=== PATIENT | female | born 1990 | race Caucasian/White ===

== ENCOUNTER 2020-03-29 16:55 | Emergency (ER) | payer OTHER, SELFPAY ==
[2020-03-29 17:20] VITALS: BP 131/77; PULSE 124; RESP 20; TEMP 36.4; O2SAT 99
[2020-03-29 17:43] LABS: Basophils Percent Auto 0.4 % (0.2-1.2); Eosinophils Absolute Auto 0.1 K/mm3 (0-0.3); Eosinophils Percent Auto 0.8 % (0-4.4); Hematocrit 32.3 % (37.0-47.0); Hemoglobin 10.6 g/dL (12.0-15.0); Immature Granulocyte Absolute 0.04 K/mm3 (0.00-0.031); Immature Granulocyte Percent A 0.4 % (0-0.5); Lymphocytes Absolute Auto 1.83 K/mm3 (0.9-3.2); Lymphocytes Percent Auto 20.5 % (18.3-44.2); Mean Corpuscular HGB Conc 32.8 g/dl (32-36); Mean Corpuscular Hemoglobin 27.7 pg (26-34); Mean Corpuscular Volume 84.3 fl (80-100); Mean Platelet Volume 8.8 fl (7.4-10.4); Monocytes Absolute Auto 0.6 K/mm3 (0.1-0.6); Monocytes Percent Auto 6.6 % (2.6-8.5); Neutrophils Absolute Auto 6.3 K/mm3 (1.3-6.7); Neutrophils Percent Auto 71.3 % (45.5-73.1); Platelet Count Result 439 k/mm3 (150-375); Red Blood Count 3.83 M/mm3 (4.2-5.4); Red Cell Distribution Width 12.9 % (11.5-14.5); White Blood Count 8.9 K/mm3 (4.5-10.0)
[2020-03-29 17:48] LABS: INR 0.9; Prothrombin Time 12.9 Seconds (11.1-14.7)
[2020-03-29 17:49] LABS: Partial Thromboplastin Time 24.8 SECONDS (22.3-36.8)
[2020-03-29 17:57] LABS: Alanine Aminotransferase 11 U/L (4-35); Albumin Level 3.6 g/dL (3.5-5.1); Alkaline Phosphatase 112 U/L (38-126); Anion Gap 9 mmol/L (8-16); Aspartate Amino Transferase 20 U/L (14-36); Bilirubin,Total 0.2 mg/dL (0.2-1.3); Blood Urea Nitrogen 6 mg/dL (7-17); Calcium 8.7 mg/dL (8.4-10.2); Carbon Dioxide 25 mmol/L (22-30); Chloride 103 mmol/L (98-107); Estimated CRCL calculation 132 ml/min; Estimated Glomerular Filt Rate > 60; Glucose 145 mg/dL (65-105); Potassium 3.6 mmol/L (3.4-5.0); Sodium 137 mmol/L (137-145)
[2020-03-29 20:01] VITALS: BP 126/88; PULSE 66; RESP 18; O2SAT 97
[2020-03-29 20:34] VITALS: BP 126/88; PULSE 108
[2020-03-29 20:35] VITALS: BP 136/95; PULSE 108
[2020-03-29 20:36] VITALS: BP 129/79; PULSE 113
--- NOTE | 2020-03-29 21:00 | ED.GIBLEED ---
HPI - GI Bleed General Chief complaint: GI Bleed Stated complaint: GI bleeding Time Seen by Provider: 03/29/20 19:57 Source: patient Mode of arrival: ambulatory Limitations: no limitations History of Present Illness HPI Narrative: 29-year-old female Complains of intermittent hematochezia x2 weeks She has some mild discomfort during bowel movements but does not think she is particularly constipated Blood does not seem to be mixed into the stool only on the tissue when she wipes and has never been a large amount There is no abdominal pain She is 21 weeks she does not think this is vaginal bleeding and has had no issues with the thus far complaint: blood on toilet paper Onset (ago): day(s) Severity: mild Related Data Allergies Allergy/AdvReac Type Severity Reaction Status Date / Time No Known Allergies Allergy Unverified 06/07/13 13:20 Review of Systems Review of Systems: All systems reviewed & are unremarkable except as noted in HPI and below Constitutional: Constitutional: Denies chills, Denies fatigue, Denies fever(s), Denies headache(s) and Denies weakness ENT: Denies headache(s) Cardiovascular: Cardiovascular: Denies leg edema, Denies palpitations and Denies dyspnea Respiratory: Respiratory: Denies cough and Denies dyspnea Gastrointestinal: Gastrointestinal: Reports no additional gastrointestinal complaints Genitourinary: Genitourinary: Denies abnormal vaginal bleeding, Denies hematuria, Denies urinary frequency and Denies dysuria Musculoskeletal: Musculoskeletal: Denies deformity, Denies muscle weakness and Denies numbness Integumentary/Breasts: Skin/Breast: Denies wounds Psychiatric: Psychiatric: Reports no additional psychiatric complaints Endocrine: Endocrine: Denies fatigue and Denies palpitations Hematologic/Lymphatic: Hematologic/Lymphatic: Denies easy bruising Allergic/Immunologic: Allergic/Immunologic: Denies wheezing Exam Const: General: no acute distress, well developed and awake Nutritional Appearance: well nourished Orientation/consciousness: patient oriented x3 (alert) Limitations: no limitations HENMT: Head: normocephalic and atraumatic Ears: external ears normal General nose exam: No nasal discharge present and no epistaxis Face and sinus: face symmetric Eyes: Conjunctivae: conjunctivae normal Sclera: sclerae normal EOM: EOMs intact bilaterally Neck: Neck: normal visual inspection, supple and no JVD Chest: Chest palpation & inspection: deferred Resp: Effort & Inspection: normal respiratory effort, not labored and not tachypneic Auscultation: other (BS =) Cardio: Heart sounds: no gallops GI: Inspection: normal to inspection GI Palp: Yes Soft to palpation and No Tenderness to palpation present (GI) Rectal Exam: No Abnormal stool present, No heme positive stool, No fecal impaction and hemorrhoids (Anterior tenderness) Back/Spine/Pelvis: Thoracic/Lumbar Spine: thoracic and lumbar spine normal to inspection Skin: General skin exam: normal color and no rashes or lesions noted Neuro: General: patient oriented x3 (alert) and moves all extremities Cranial nerves: Yes facial symmetry Speech: normal speech Extrem: General: normal to inspection and full ROM Psych: Affect: normal affect Course Vital Signs Vital signs: Vital Signs Temperature 36.4 C 03/29/20 17:20 Pulse Rate 124 H 03/29/20 17:20 Respiratory Rate 20 03/29/20 17:20 Blood Pressure 131/77 03/29/20 17:20 Pulse Oximetry 99 03/29/20 17:20 Temperature 36.4 C 03/29/20 17:20 Pulse Rate 113 H 03/29/20 20:36 Respiratory Rate 18 03/29/20 20:01 Blood Pressure 129/79 03/29/20 20:36 Pulse Oximetry 97 03/29/20 20:01 MDM - GI Bleed Lab Data Result diagrams: 03/29/20 17:29 03/29/20 17:29 Labs: Lab Results 03/29/20 03/29/20 03/29/20 Range/Units 17:29 17:29 17:29 WBC 8.9 (4.5-10.0) K/mm3 RBC 3.83 L (4.2-5.4) M
[2020-03-29 22:10] VITALS: BP 119/78; PULSE 75; RESP 14; TEMP 36.4; O2SAT 96
== END 2020-03-29 22:12 | disposition home or self-care (01) ==
PROVIDERS: Emergency Provider Emergency Medicine; PCP Obstetrics & Gynecology
DX: K92.1 Melena (principal)
CPT/HCPCS: 36415; 80053; 85025; 85610; 85730; 86850; 86900; 86901; 99283

== ENCOUNTER 2020-04-24 15:55 | Observation (INO) | payer OTHER, SELFPAY ==
--- NOTE | 2020-04-24 15:55 | OBADM ---
This patient, Sabrina Choi, admitted to the OB room OB Post 115 for observation. Patient/family oriented to hospital policies and general routines including ID bracelet, bed and alarms, visiting hours, pain management, procedures, bathroom and other care routines, personal items, smoking policy, room service/diet, and visiting hours. Patient/Family are encouraged to report perceived risks to care and to ask questions if they do not understand what they are told or what they should do.
[2020-04-24 16:14] VITALS: BP 124/78; PULSE 109; BMI 33.5
[2020-04-24 16:16] VITALS: BP 120/76; PULSE 106
--- NOTE | 2020-04-24 16:25 | PC.NURSE ---
Cuba Puentes CNM notified of patient arrival to OB unit with complaint of stomach tightening while at work. Patient states her abdomen is no longer tight and denies any pain. VSS. FHT reactive. Orders received.
[2020-04-24 16:31] VITALS: BP 119/73; PULSE 101
--- NOTE | 2020-04-24 16:38 | PC.NURSE ---
Plan of care discussed with patient. Patient states understanding and agrees with plan of care. Speculum exam performed, cervix visualized and no bleeding noted during speculum exam. SVE performed following speculum exam, cervix closed/thick/firm in a posterior position.
[2020-04-24 16:45] VITALS: BP 127/81; PULSE 111
[2020-04-24 16:51] LABS: Add Urine Microscopic? YES; Amorphous Sediment Urine Few; Appearance Urine Cloudy (Clear); Bacteria Urine Trace /hpf; Bilirubin Urine Negative (Negative); Blood Urine Negative (Negative); Color Urine Yellow (Yellow); Glucose Urine UA Negative (Negative); Ketones Urine Negative (Negative); Leukocyte Esterase Ur Negative LEU/UL (Negative); Mucus Urine Rare /lpf; Nitrate Urine Negative (Negative); Protein Urine Negative (Negative); RBC Urine 0-2 /hpf (0-2); Specific Grav Ur 1.014 (1.001-1.035); Urobilinogen Urine Negative mg/dL (<2.0); WBC Urine 0-3 /hpf
--- NOTE | 2020-04-24 16:59 | PC.NURSE ---
Updated Cuba Puentes CNM on UA results. Discharge order received.
[2020-04-24 17:01] VITALS: BP 115/68; PULSE 101
--- NOTE | 2020-04-24 17:10 | PC.NURSE ---
Discharge instructions reviewed with patient. Patient states understanding and denies questions.
--- NOTE | 2020-05-08 07:52 | P.PNOB_ITS ---
OB - Triage/Final Diagnosis Evaluation Laboratory results: Laboratory Tests 04/24/20 16:39 Urine Color Yellow Urine Appearance Cloudy H Urine pH 8.0 Ur Specific [place] 1.014 Urine Protein Negative Urine Glucose (UA) Negative Urine Ketones Negative Ur Blood (Man) Negative Urine Nitrate Negative Urine Bilirubin Negative Urine Urobilinogen Negative Leukocyte Esterase Rfl Negative Urine RBC 0-2 Urine WBC 0-3 Amorphous Sediment Few H Urine Bacteria Trace Urine Mucus Rare Final Diagnosis (1) False labor: Code(s): O47.9 - False labor, unspecified Status: Acute
== END 2020-04-24 17:16 | disposition home or self-care (01) ==
PROVIDERS: Advanced Practice Midwife; Admitting Provider Obstetrics & Gynecology; PCP Obstetrics & Gynecology; Visit Provider Obstetrics & Gynecology
DX: O47.9 False labor, unspecified (principal); Z3A.00 Weeks of gestation of pregnancy not specified
CPT/HCPCS: 81001; G0378; G0379

== ENCOUNTER 2020-05-15 10:01 | Outpatient (CLI) | payer OTHER, SELFPAY ==
[2020-05-15 11:36] LABS: Hematocrit 29.3 % (37.0-47.0); Hemoglobin 9.4 g/dL (12.0-15.0)
[2020-05-15 11:45] LABS: Glucose 1 Hour PP 50gm Dose 128 mg/dL
[2020-05-15 12:26] LABS: HIV 1/2 Ab P24 Ag Result Negative (Negative)
[2020-05-17 10:38] LABS: Rapid Plasma Reagin Non-Reactive (NonReactive)
== END 2020-05-15 10:02 | disposition home or self-care (01) ==
PROVIDERS: Visit Provider Obstetrics & Gynecology
DX: O36.0130 Maternal care for anti-D [Rh] antibodies, third trimester, not applicable or unspecified (principal); Z3A.00 Weeks of gestation of pregnancy not specified
CPT/HCPCS: 36415; 82947; 85014; 85018; 86592; 86703; G0432

== ENCOUNTER 2020-06-08 11:46 | Observation (INO) | payer OTHER, SELFPAY ==
[2020-06-08 12:00] VITALS: BMI 34.4
[2020-06-08 12:04] VITALS: BP 128/85; PULSE 108
[2020-06-08 12:15] VITALS: BP 112/72; PULSE 94
[2020-06-08 12:21] LABS: Add Urine Microscopic? YES; Appearance Urine Clear (Clear); Bacteria Urine Trace /hpf; Bilirubin Urine Negative (Negative); Blood Urine Negative (Negative); Color Urine Yellow (Yellow); Glucose Urine UA 1+ mg/dL (Negative); Ketones Urine Negative (Negative); Leukocyte Esterase Ur 2+ LEU/UL (NEGATIVE); Mucus Urine Few /lpf; Nitrate Urine Negative (Negative); Protein Urine 1+ mg/dL (Negative); RBC Urine 0-2 /hpf (0-2); Specific Grav Ur 1.024 (1.001-1.035); Squamous Epithelial Cell Urine Many /hpf (Few); Urobilinogen Urine Negative mg/dL (<2.0)
[2020-06-08 12:30] VITALS: BP 111/67; PULSE 98
[2020-06-08 12:45] VITALS: BP 115/73; PULSE 97
[2020-06-08 13:00] VITALS: BP 112/68; PULSE 92
--- NOTE | 2020-06-28 08:22 | P.PNOB_ITS ---
OB - Triage/Final Diagnosis Visit Information Comments/Additional reasons for admission: I have assessed the risk for this patient, Sabrina Choi, and determined that she would benefit from observation care. Evaluation Laboratory results: Laboratory Tests 06/08/20 12:05 Urine Color Yellow Urine Appearance Clear Urine pH 8.0 Ur Specific [place] 1.024 Urine Protein 1+ H Urine Glucose (UA) 1+ H Urine Ketones Negative Ur Blood (Man) Negative Urine Nitrate Negative Urine Bilirubin Negative Urine Urobilinogen Negative Ur Leukocyte Esterase 2+ H Urine RBC 0-2 Urine WBC 10-15 H Ur Squamous Epith Cells Many H Urine Bacteria Trace Urine Mucus Few H Final Diagnosis (1) False labor: Code(s): O47.9 - False labor, unspecified Status: Acute
== END 2020-06-08 13:30 | disposition home or self-care (01) ==
PROVIDERS: Admitting Provider Obstetrics & Gynecology; Visit Provider Obstetrics & Gynecology
DX: O47.03 False labor before 37 completed weeks of gestation, third trimester (principal); Z3A.32 32 weeks gestation of pregnancy
CPT/HCPCS: 81001; 87086; 87088; G0378; G0379

== ENCOUNTER 2020-07-02 23:25 | Observation (INO) | payer OTHER, SELFPAY ==
[2020-07-02 23:35] VITALS: BP 137/74; PULSE 72
[2020-07-02 23:45] VITALS: BP 132/82; PULSE 75
[2020-07-03] VITALS: BP 132/81; PULSE 69; BMI 35.3
[2020-07-03 00:15] VITALS: BP 125/79; PULSE 73
--- NOTE | 2020-07-03 00:15 | PC.NURSE ---
Pt states she had abdominal pressure today. States has noted panties moist since 1600 and was concerned about SROM. ROm plus was done and negative. 1`-2 contractions noted on arrival. Palpate as mild. Pt states she has had swelling to hands and feet. No pitting noted on exam. VS as noted. Pt states she did have elevated blood pressure with previous . Dr. Cary notified of pt admission and assessment. Will discharge to home. NO SVE since pt is 34 6/7 and not having regular contractions. Pt to follow up in office.
--- NOTE | 2020-07-03 00:21 | OBADM ---
This patient, Sabrina Choi, admitted to the OB room OB Post 117 for observation. Patient/family oriented to hospital policies and general routines including ID bracelet, bed and alarms, visiting hours, pain management, procedures, bathroom and other care routines, personal items, smoking policy, room service/diet, and visiting hours. Patient/Family are encouraged to report perceived risks to care and to ask questions if they do not understand what they are told or what they should do.
[2020-07-03 00:30] VITALS: BP 129/79; PULSE 66
--- NOTE | 2020-07-31 09:53 | PM.OBTRLD ---
OB - Triage/Final Diagnosis Visit Information Comments/Additional reasons for admission: I have assessed the risk for this patient, Sabrina Choi, and determined that she would benefit from observation care. Final Diagnosis (1) False labor: Code(s): O47.9 - False labor, unspecified Status: Acute
== END 2020-07-03 00:35 | disposition home or self-care (01) ==
PROVIDERS: Admitting Provider Obstetrics & Gynecology; Visit Provider Obstetrics & Gynecology
DX: O47.03 False labor before 37 completed weeks of gestation, third trimester (principal); Z3A.34 34 weeks gestation of pregnancy
CPT/HCPCS: 84112; G0378; G0379

== ENCOUNTER 2020-07-05 22:03 | Observation (INO) | payer OTHER, SELFPAY ==
[2020-07-05 22:50] VITALS: BMI 35.3
--- NOTE | 2020-07-07 07:34 | P.PNOB_ITS ---
OB - Triage/Final Diagnosis Visit Information Date of evaluation: 07/06/20 Reason for evaluation: threatened labor Comments/Additional reasons for admission: I have assessed the risk for this patient, Sabrinapauly Choi, and determined that she would benefit from ob servation care.
== END 2020-07-05 23:40 | disposition home or self-care (01) ==
PROVIDERS: Admitting Provider Obstetrics & Gynecology; Visit Provider Obstetrics & Gynecology
DX: O47.03 False labor before 37 completed weeks of gestation, third trimester (principal); Z3A.35 35 weeks gestation of pregnancy
CPT/HCPCS: G0378; G0379

== ENCOUNTER 2020-07-24 12:35 | Inpatient (IN) | payer OTHER, SELFPAY ==
[2020-07-24] VITALS (112 sets, daily range): BP systolic 64–160; BP diastolic 23–121; PULSE 60–153; RESP 18; TEMP 36.6–37.1; O2SAT 78–100; BMI 37.2; BMI 37.8
[2020-07-24 10:20] LABS: Basophils Percent Auto 0.5 % (0.2-1.2); Eosinophils Percent Auto 0.4 % (0-4.4); Hematocrit 31.9 % (37.0-47.0); Immature Granulocyte Absolute 0.02 K/mm3 (0.00-0.031); Immature Granulocyte Percent A 0.2 % (0-0.5); Lymphocytes Absolute Auto 1.63 K/mm3 (0.9-3.2); Lymphocytes Percent Auto 20.3 % (18.3-44.2); Mean Corpuscular HGB Conc 31.3 g/dl (32-36); Mean Corpuscular Hemoglobin 24.3 pg (26-34); Mean Corpuscular Volume 77.4 fl (80-100); Monocytes Absolute Auto 0.5 K/mm3 (0.1-0.6); Monocytes Percent Auto 6.4 % (2.6-8.5); Neutrophils Absolute Auto 5.8 K/mm3 (1.3-6.7); Neutrophils Percent Auto 72.2 % (45.5-73.1); Platelet Count Result 362 k/mm3 (150-375); Red Blood Count 4.12 M/mm3 (4.2-5.4); Red Cell Distribution Width 15.5 % (11.5-14.5)
[2020-07-24 10:29] LABS: Add Urine Microscopic? YES; Appearance Urine Cloudy (Clear); Bacteria Urine 1+ /hpf; Bilirubin Urine Negative (Negative); Blood Urine Negative (Negative); Color Urine Yellow (Yellow); Glucose Urine UA Negative (Negative); Ketones Urine Negative (Negative); Leukocyte Esterase Ur 3+ LEU/UL (NEGATIVE); Mucus Urine Few /lpf; Nitrate Urine Negative (Negative); Protein Urine 2+ mg/dL (Negative); Specific Grav Ur 1.024 (1.001-1.035); Squamous Epithelial Cell Urine Many /hpf (Few); Urobilinogen Urine Negative mg/dL (<2.0); WBC Urine 31-50 /hpf (0-3)
[2020-07-24 10:31] LABS: Alanine Aminotransferase 11 U/L (4-35); Albumin Level 3.4 g/dL (3.5-5.1); Alkaline Phosphatase 256 U/L (38-126); Anion Gap 4 mmol/L (8-16); Aspartate Amino Transferase 29 U/L (14-36); Bilirubin,Total 0.2 mg/dL (0.2-1.3); Blood Urea Nitrogen 8 mg/dL (7-17); Calcium 8.1 mg/dL (8.4-10.2); Carbon Dioxide 28 mmol/L (22-30); Chloride 105 mmol/L (98-107); Estimated Glomerular Filt Rate > 60; Glucose 75 mg/dL (65-105); Potassium 4.5 mmol/L (3.4-5.0); Sodium 137 mmol/L (137-145); Uric Acid 4.3 mg/dL (2.5-7.5)
[2020-07-24 10:42] LABS: Creatinine Urine 167.1 mg/dL; Total Protein Urine Random 39 mg/dL; Ur Ttl Prot Creatinine Ratio 0.23 mg/mg (0-0.20)
--- NOTE | 2020-07-24 12:25 | OBADM ---
This patient, Sabrina Choi, admitted to the OB room OB Post 113 for observation. Patient/family oriented to hospital policies and general routines including ID bracelet, bed and alarms, visiting hours, pain management, procedures, bathroom and other care routines, personal items, smoking policy, room service/diet, call light, and visiting hours. Patient/Family are encouraged to report perceived risks to care and to ask questions if they do not understand what they are told or what they should do.
[2020-07-24] MEDS: OXYTOCIN 30 UNITS/NS 500 ML 30 UNITS/500 ML BAG IV CONT (13:42)
[2020-07-24] MEDS: AMPICILLIN 2 GM/NS 100 ML 2 GM/100 ML BAG IVPB (13:43)
[2020-07-24] MEDS: LACTATED RINGERS 1,000 ML 125 ML IV CONT ×3 (13:43→23:00)
--- NOTE | 2020-07-24 14:11 | WPDOBADMIT ---
Obstetrics - Admit Note Admission Note: 29 y/o here for induction d/t GHTN. /2 AROM performed. Clear odorless. record reviewed. No pertinent additions to the history and/or any subsequent changes in the physical findings that are not consistent with the expected course of the were found. Additions to the history and/or subsequent changes in the physical findings follow. None.
[2020-07-24] MEDS: fentaNYL CITRATE INJ (*CRX) 100 MCG/2 ML VIAL IV PUSH (17:26)
[2020-07-24] MEDS: AMPICILLIN 1 GM/NS 50 ML 1 GM/50 ML BAG IVPB ×2 (17:47→21:55)
--- NOTE | 2020-07-24 17:52 | WPDANESEPP ---
Anes - Eval Pre Procedure Procedure: labor epidural Date/Time: 07/24/20 17:52 Surgeon: Luis Daniel Preop Diagnosis: abd pain with contractions Pre Op Diagnosis: GHTN Patient Data Age: 29 Gender: F Height: 5 ft Weight: 86.5 kg Last Vital Signs Temp 98.1 F 07/24/20 17:48 Pulse 83 07/24/20 17:45 BP 151/103 H 07/24/20 17:45 Allergies Allergy/AdvReac Type Severity Reaction Status Date / Time No Known Allergies Allergy Unverified 06/07/13 13:20 Laboratory Tests 07/24/20 07/24/20 07/24/20 10:07 10:07 10:07 WBC 8.0 K/mm3 K/mm3 (4.5-10.0) RBC 4.12 M/mm3 L M/mm3 (4.2-5.4) Hgb 10.0 g/dL L g/dL (12.0-15.0) Hct 31.9 % L % (37.0-47.0) MCV 77.4 fl L fl (80-100) MCH 24.3 pg L pg (26-34) MCHC 31.3 g/dl L g/dl (32-36) RDW 15.5 % H % (11.5-14.5) Plt Count 362 k/mm3 k/mm3 (150-375) MPV 9.0 fl fl (7.4-10.4) Immature Gran % (Auto) 0.2 % % (0-0.5) Neut % (Auto) 72.2 % % (45.5-73.1) Lymph % (Auto) 20.3 % % (18.3-44.2) [place] % (Auto) 6.4 % % (2.6-8.5) Eos % (Auto) 0.4 % % (0-4.4) Baso % (Auto) 0.5 % % (0.2-1.2) Lymph # (Auto) 1.63 K/mm3 K/mm3 (0.9-3.2) [place] # (Auto) 0.5 K/mm3 K/mm3 (0.1-0.6) Eos # (Auto) 0.0 K/mm3 K/mm3 (0-0.3) Baso # (Auto) 0.0 K/mm3 K/mm3 (0.0-0.1) Abs Immat Gran (auto) 0.02 K/mm3 K/mm3 (0.00-0.031) Absolute Neuts (auto) 5.8 K/mm3 K/mm3 (1.3-6.7) Absolute Nucleated RBC 0.0 K/mm3 K/mm3 (0.0-0.012) Nucleated RBC % 0.0 % % (0.0-0.2) Sodium Potassium Chloride Carbon Dioxide Anion Gap BUN Creatinine Estim Creat Clear Calc Estimated GFR Glucose Uric Acid Calcium Total Bilirubin AST ALT Alkaline Phosphatase Total Protein Albumin Urine Color Yellow (Yellow) Urine Appearance Cloudy H (Clear) Urine pH 6.0 (5.0-9.0) Ur Specific [place] 1.024 (1.001-1.035) Urine Protein 2+ mg/dL H mg/dL (Negative) Urine Glucose (UA) Negative mg/dL mg/dL (Negative) Urine Ketones Negative mg/dL mg/dL (Negative) Ur Blood (Man) Negative (Negative) Urine Nitrate Negative (Negative) Urine Bilirubin Negative (Negative) Urine Urobilinogen Negative mg/dL mg/dL (<2.0) Ur Leukocyte Esterase 3+ ISAURA/UL H ISAURA/UL (NEGATIVE) Urine RBC 3-5 /hpf H /hpf (0-2) Urine WBC 31-50 /hpf H /hpf (0-3) Ur Squamous Epith Cells Many /hpf H /hpf (Few) Urine Bacteria 1+ /hpf H /hpf Urine Mucus Few /lpf H /lpf U Random Total Protein 39 mg/dL mg/dL Urine Creatinine 167.1 mg/dL mg/dL Protein/Creat Ratio 2 0.23 mg/mg H mg/mg (0-0.20) RPR Blood Type Antibody Screen 07/24/20 07/24/20 07/24/20 10:07 13:44 13:44 WBC RBC Hgb Hct MCV MCH MCHC RDW Plt Count MPV Immature Gran % (Auto) Neut % (Auto) Lymph % (Auto) [place] % (Auto) Eos % (Auto) Baso % (Auto) Lymph # (Auto) [place] # (Auto) Eos # (Auto) Baso # (Auto) Abs Immat Gran (auto) Absolute Neuts (auto) Absolute Nucleated RBC Nucleated RBC % Sodium 137 mmol/L mmol/L (137-145) Potassium 4.5 mmol/L mmol/L (3.4-5.0) Chloride 105 mmol/L mmol
--- NOTE | 2020-07-24 22:33 | PM.OBPRVD ---
OB - Delivery Note Procedure Delivery date: 07/24/20 events: Induced HTN Intrapartal events: None Induction method: per pitocin protocol Delivery monitor: external FHT and external uterine Route of delivery: Episiotomy description: None Laceration Description: Perineal - 2nd Degree Delivery repair: vicryl Specimen: Yes Quantitative Blood Loss (ml): 216 Anesthesia type: Epidural Narrative: Delivery per Z. Due SNM. Mother and baby in stable condition. Cord gasses collected and handed off to staff. Baby Date of : 07/24/20 Time of : 22:06 Weeks of gestation at delivery: 37 Infant gender: Male Weight (pounds): 6 Weight (ounces): 7 presentation: vertex position: Left Occiput Anterior Placenta delivery description: Spontaneous cord vessel description: Delayed Cord Clamping score one minute: 8 score five minutes: 9
[2020-07-24] MEDS: OXYTOCIN 30 UNITS/NS 500 ML 30 UNITS/500 ML BAG 125 UNITS IV CONT (23:00)
[2020-07-25] VITALS (10 sets, daily range): BP systolic 125–157; BP diastolic 75–98; PULSE 75–101; RESP 12–20; TEMP 36.4–37; O2SAT 20–100
[2020-07-25] MEDS: WITCH HAZEL 40 PADS 1 PAD TOPICAL (00:21)
[2020-07-25] MEDS: BENZOCAINE 20% AER SPR (*SP) 56 GM CAN 1 SPRAY TOPICAL (00:21)
--- NOTE | 2020-07-25 00:36 | OBPPTRN ---
Patient transferred to post room #277 via wheelchair with baby in bassinet. Support person present. Oriented to unit, room, information board, rooming in, admission packet and security measures. Patient verbalizes understanding.
[2020-07-25 01:04] LABS: HIV 1/2 Ab P24 Ag Result Negative (Negative)
[2020-07-25] MEDS: IBUPROFEN 600 MG TABLET PO ×3 (02:00→16:05)
[2020-07-25 05:05] LABS: Hematocrit 25.5 % (37.0-47.0); Hemoglobin 8.1 g/dL (12.0-15.0)
--- NOTE | 2020-07-25 07:18 | WPDANLDPN2 ---
Anes-Prog Note L&D Date/Time: 07/25/20 07:18 Comfortable throughout: labor and delivery Neuraxial method: epidural Epidural/Spinal procedure site: clean & non-tender Neuro status: Neuro function grossly intact. Cardiovascular status: normal Respiratory status: normal Airway patency: baseline Mental status: baseline Post-Op hydration status: normal Vital Signs: Last Vital Signs Temp 36.4 C 07/25/20 04:15 Pulse 101 H 07/25/20 04:15 Resp 18 07/25/20 04:15 BP 125/75 07/25/20 04:15 Pulse Ox 97 07/25/20 04:15 Pain score (VAS): 04/30 I/O: Intake & Output 07/24/20 07/24/20 07/25/20 15:59 23:59 07:59 Intake Total 2049 Output Total 113 Balance 2049 - Post-procedural complaints: none Patient feedback: Patient satisfied with anesthetic care.
[2020-07-25] MEDS: POLYSACCHARIDE IRON COMPLEX 150 MG CAPSULE PO ×2 (07:29→16:05)
[2020-07-25] MEDS: MULTIVIT/MIN/PREN/FOL AC/IRON TABLET 1 TAB PO (07:29)
--- NOTE | 2020-07-25 07:51 | PM.OBPNVD ---
OB - PN: Subj Subjective Date/time seen: 07/25/20 07:51 Patient comments: no complaints baby status: doing well OB - PN: Obj Data Labs CBC & Chem 7: 07/25/20 04:13 07/24/20 10:07 Labs: Laboratory Results - last 24 hr 07/24/20 07/24/20 07/24/20 10:07 10:07 10:07 WBC 8.0 RBC 4.12 L Hgb 10.0 L Hct 31.9 L MCV 77.4 L MCH 24.3 L MCHC 31.3 L RDW 15.5 H Plt Count 362 MPV 9.0 Immature Gran % (Auto) 0.2 Neut % (Auto) 72.2 Lymph % (Auto) 20.3 [place] % (Auto) 6.4 Eos % (Auto) 0.4 Baso % (Auto) 0.5 Lymph # (Auto) 1.63 [place] # (Auto) 0.5 Eos # (Auto) 0.0 Baso # (Auto) 0.0 Abs Immat Gran (auto) 0.02 Absolute Neuts (auto) 5.8 Absolute Nucleated RBC 0.0 Nucleated RBC % 0.0 Sodium Potassium Chloride Carbon Dioxide Anion Gap BUN Creatinine Estim Creat Clear Calc Estimated GFR Glucose Uric Acid Calcium Total Bilirubin AST ALT Alkaline Phosphatase Total Protein Albumin Urine Color Yellow Urine Appearance Cloudy H Urine pH 6.0 Ur Specific [place] 1.024 Urine Protein 2+ H Urine Glucose (UA) Negative Urine Ketones Negative Ur Blood (Man) Negative Urine Nitrate Negative Urine Bilirubin Negative Urine Urobilinogen Negative Ur Leukocyte Esterase 3+ H Urine RBC 3-5 H Urine WBC 31-50 H Ur Squamous Epith Cells Many H Urine Bacteria 1+ H Urine Mucus Few H U Random Total Protein 39 Urine Creatinine 167.1 Protein/Creat Ratio 2 0.23 H HIV 1&2 Ab/P24 Ag 4thGn Blood Type Antibody Screen 07/24/20 07/24/20 07/24/20 10:07 13:44 23:48 WBC RBC Hgb Hct MCV MCH MCHC RDW Plt Count MPV Immature Gran % (Auto) Neut % (Auto) Lymph % (Auto) [place] % (Auto) Eos % (Auto) Baso % (Auto) Lymph # (Auto) [place] # (Auto) Eos # (Auto) Baso # (Auto) Abs Immat Gran (auto) Absolute Neuts (auto) Absolute Nucleated RBC Nucleated RBC % Sodium 137 Potassium 4.5 Chloride 105 Carbon Dioxide 28 Anion Gap 4 L BUN 8 Creatinine 0.70 Estim Creat Clear Calc Not Reportable Estimated GFR > 60 Glucose 75 Uric Acid 4.3 Calcium 8.1 L Total Bilirubin 0.2 AST 29 ALT 11 Alkaline Phosphatase 256 H Total Protein 7.0 Albumin 3.4 L Urine Color Urine Appearance Urine pH Ur Specific [place] Urine Protein Urine Glucose (UA) Urine Ketones Ur Blood (Man) Urine Nitrate Urine Bilirubin Urine Urobilinogen Ur Leukocyte Esterase Urine RBC Urine WBC Ur Squamous Epith Cells Urine Bacteria Urine Mucus U Random Total Protein Urine Creatinine Protein/Creat Ratio 2 HIV 1&2 Ab/P24 Ag 4thGn Negative Blood Type O Positive Antibody Screen Negative 07/25/20 04:13 WBC RBC Hgb 8.1 L Hct 25.5 L MCV MCH MCHC RDW Plt Count MPV Immature Gran % (Auto) Neut % (Auto) Lymph % (Auto) [place] % (Auto) Eos % (Auto) Baso % (Auto) Lymph # (Auto) [place] # (Auto) Eos # (Auto) Baso # (Auto) Abs Immat Gran (auto) Absolute Neuts (auto) Absolute Nucleated RBC Nucleated RBC % Sodium Potassium Chloride Carbon Dioxide Anion Gap BUN Creatinine Estim Creat Clear Calc Estimated GFR Glucose Uric Acid Calcium Total Bilirubin AST ALT Alkaline Phosphatase Total Protein Albumin Urine Color Urine Appearance Urine pH Ur Specific [place] Urine Protein Urine Glucose (UA) Urine Ketones Ur Blood (Man) Urine Nitrate Urine Bilirubin Urine Urobilinogen Ur Leukocyte Esterase Urine RBC Urine WBC Ur Squamous Epith Cells Urine Bacteria Urine Mucus U Random Total Protein Urine Creatinine Protein/Creat Ratio 2 HIV 1&2 Ab/P24 Ag 4thGn Blood Type Antibody Screen OB - PN A
--- NOTE | 2020-07-25 08:55 | PC.NURSE ---
Mother called out for assist with feeding. Consulted with patient, mother reports has had latch issues since . Mother was given the latch assist and nipple shield for feedings. Mother has nipple discomfort with latch during first part of the feeding that quickly resolves. Reviewed nipple care of lanolin, warm compresses several times per day as needed. Reviewed instructions on application and cleaning of shield. Discussed nipple shield precautions and possible complications. Patient able to return demonstration on proper application of shield. Discussed the need to initiate pumping if infant continues to nurse with the shield. Patient verbalizes understanding. Reviewed infant feeding cues, frequencies, duration of feedings, feeding elimination flow sheet, and signs of adequate intake. Demonstrated stimulation techniques to wake for feeding. Assisted with infant to breast. Reviewed positioning/alignment in football, holding breast in C hold and guided asymmetrical latch on using nipple shield. was sleepy and made weak attempts to latch and nurse with short chewy suckling for short bursts. Approximately 2 minutes of suckling in 15 minute attempt. Mother is concerned with infant feeding status and wishes to be supplemented. Infant sleepy and having difficulties with suck swallow, 2 mls in 10 minutes. Report to primary RN.
--- NOTE | 2020-07-25 09:30 | PC.NURSE ---
Assisted mother with her home double electric pump. Instructions given on breast pump care and usage, pumping schedule, nipple care, and collection and storage of breast milk. Encouraged [id number], breast massage and manual expression to stimulate supply. Assessed patient for correct flange size, placement and draw. Patient verbalizes and demonstrates understanding of instructions.
--- NOTE | 2020-07-25 12:45 | PC.NURSE ---
Mother called out for assist with feeding. Mother is concerned with feeding status and wishes infant to be supplemented. was sleepy and made weak attempts to latch and nurse with short chewy suckling for short bursts. Approximately 2 minutes of suckling in 15 minute attempt. Infant sleepy and having difficulties with suck swallow, 2 mls in 10 minutes. Report to primary RN.
[2020-07-25 13:55] LABS: Rapid Plasma Reagin Non-Reactive (NonReactive)
[2020-07-25] MEDS: DOCUSATE SODIUM 100 MG CAPSULE PO (16:05)
[2020-07-26 03:10] VITALS: BP 151/96; PULSE 90; RESP 18; TEMP 36.8; O2SAT 100
[2020-07-26] MEDS: IBUPROFEN 600 MG TABLET PO ×2 (03:50→09:06)
[2020-07-26 07:15] VITALS: BP 140/90; PULSE 74; RESP 18; TEMP 36.6; O2SAT 100
--- NOTE | 2020-07-26 08:02 | PM.OBPNVD ---
OB - PN: Subj Subjective Date/time seen: 07/26/20 08:02 Patient comments: no complaints baby status: doing well OB - PN: Obj Data Labs CBC & Chem 7: 07/25/20 04:13 07/24/20 10:07 Labs: Laboratory Results - last 24 hr 07/24/20 13:44 RPR Non-reactive OB - PN A/P Plan day: 2 Plan: routine care and discharge home Time Spent With Patient Time: Total time spent is greater than 50% in coordination of care (as documented) at patient's floor/unit and/or counseling patient: Review of Systems Review of Systems: All systems reviewed & are unremarkable except as noted in HPI and below Exam Const: General: cooperative Orientation/consciousness: patient oriented x3 Psych: Affect: normal affect Thought process: Normal thought process present Thought content: Yes Normal thought content present Insight: Good insight present (Psych) Judgement: Good judgement present (Psych)
[2020-07-26] MEDS: MULTIVIT/MIN/PREN/FOL AC/IRON TABLET 1 TAB PO (09:05)
[2020-07-26] MEDS: DOCUSATE SODIUM 100 MG CAPSULE PO (09:06)
[2020-07-26] MEDS: POLYSACCHARIDE IRON COMPLEX 150 MG CAPSULE PO (09:06)
--- NOTE | 2020-07-26 10:00 | PC.NURSE ---
Consult with pt., mother states infant was more awake and eagerly nippling during the evening, then began nursing during the night. Mother is pleased is now rooting and able to maintain latch. Mother will use the shield at times, and reports infant will latch without at times. Reviewed pumping after each feeding with shield and to supplement 15 mls until her milk is well established. Mother continues to pump without difficulties or discomfort with her double electric pump. FOB will supplement after feedings while mother pumps. Reviewed nipple shield weaning techniques, discussing to use shield if infant is unable to latch or latch without discomfort. Mother reports tenderness at times with shield. Infant is ready to feed at this time. Reviewed instructions on application and cleaning of shield. Discussed nipple shield precautions and possible complications. Reviewed positioning/alignment in cross cradle, holding breast in U hold and guided asymmetrical latch on. latched shallow to shield. suggested mother break latch and reattempt. was able to latch correctly within a few attempts. Infant nursed eagerly, with steady draws and occasional swallowing noted, then began to have long pausing. Reviewed signs of a correct latch, effective nursing and suck swallow ratio. Demonstrated how to adjust latch more deeply while feeding. Mother quickly reports she can feel infant is latched more deeply and has minimal tenderness. Suggested to stimulate while feeding to keep infant awake and nursing effectively for increased stimulation and increased intake. Instructed mother to call out for RN assistance if she is unable to latch infant for feeding or she has discomfort with nursing. Discussed transitioning to milk and when to increase or decrease supplementation. Reviewed feeding plan to supplement after each feeding and to continue to pump until milk supply is well established and is gaining weight without supplementation. Mother is able to independently latch infant with appropriate positioning/alignment. She reports slight nipple discomfort, is feeding as required and waking to feed if needed. Working with latch assisted with nipple tenderness. is currently meeting outcomes for weight, output, jaundice and feeding frequencies. Mother states she feels confident to continue effective at home. Reviewed transition to breast milk, signs of adequate intake, and engorgement/relief. Instructed to call ICP if intake/output less than required. Reviewed regular medications mother is taking. Information provided per Felicita. Reviewed community resources on the [employer] website and in the Mom/Baby guide. Information on outpatient services provided. Mother has no further questions at this time.
[2020-07-26 11:45] VITALS: BP 140/93; PULSE 78; RESP 12; TEMP 36.9; O2SAT 100
[2020-07-28 11:39] VITALS: BP 129/82; PULSE 102; RESP 16; TEMP 36.9; O2SAT 99
--- NOTE | 2020-08-02 07:22 | PM.OBDSVD ---
DS: Admitting Diagnosis Admitting Diagnosis Admitting Diagnosis: [facility] OB - DS: Summary OB Procedures : None OB Procedures Intrapartum: Spontaneous Vag Delivery OB Procedures: : None Time Spent with Patient Time attestation: Total time spent providing and/or coordinating discharge services: DS: Data Data Completed and Pending Completed studies during hospitalization: Pending at discharge 07/24/20 22:27 Surgical [PTH] Routine Discharge Plan Discharge Attending physician on discharge: Maria Teresa Cary Consulting providers: Daisy Puentes ; Kari Jefferson Discharging Clinician: Kari Jefferson Patient Disposition: Home, Self-Care Activity: pelvic rest Diet: regular Discharge Instructions: Education: Mom and Baby Guide Given to: Mother Follow-Up: Call your delivering provider's office for an appointment to be seen in: 4 Weeks Mom and baby should come to the [facility] for the follow-up appointment. Appointment Date/Time: July 28, 2020 at 11:00 am What to expect at your follow-up visit: Physical Assessment Call [phone] if you are unable to keep your appointment time. BREAST CARE: * Wear a snug supportive bra. * For engorgement discomfort: Breast Feeding: * Apply warm moist washcloths * Express milk as needed to relieve engorgement * Wear loose clothing * For sore nipples: * Identify correct latch-on * Apply warm moist washcloths before and after nursing * Air dry nipples after nursing * May apply Lansinoh cream to nipples EPISIOTOMY/PERINEAL CARE: * Until bleeding stops, use your gracie bottle after urinating * Change your pad frequently throughout the day * You may take sitz baths several times a day (fill your bathtub with warm water and soak for 20 minutes.) Do NOT bathe in the water * No tub baths until seen by your physician - You may shower ACTIVITY: * Rest as much as possible. * Do not exercise or lift anything heavier than your baby (such as laundry or other children.) * Avoid stairs or driving as much as possible. * Do not put anything into the vagina. No douching, tampons, or sexual activity until seen by physician. NOTIFY PHYSICIAN IF YOU HAVE ANY QUESTIONS OR IF ANY OF THE FOLLOWING SYMPTOMS OCCUR: * If your episiotomy or incision becomes red, swollen, or more painful than what you have experienced in the hospital. * If your vaginal bleeding becomes foul smelling. * If your vaginal bleeding becomes more heavy than a period or if your bleeding changes from pink to bright red. However, you may pass an occasional walnut-sized clot once or twice for the first week . * If you experience a sharp, shooting pain in you calves. * If you discover a hard, reddened area on your breast or if you experience flu-like symptoms. DIET: * Eat regular, well-balanced meals. * Drink plenty of fluids daily. If , drink to thirst. Patient Instructions: Antibiotic Form Stand Alone Forms: General Discharge Information Follow-up/Referrals: Daisy Puentes CNM [Certified Nurse Records Administrator] - 4 Weeks Discharge Medications: Continued valacyclovir 500 mg tablet 500 mg PO HS RF: 0 Date of admission: 07/24/20 12:35 Primary Care Provider: PHYSICIAN,YARN TESTER Admitting Provider: Maria Teresa Cary Attending physician on admission: Maria Teresa Cary Condition: Stable
== END 2020-07-26 14:13 | disposition home or self-care (01) | DRG 807 ==
LOC: ANHOBOP 12:39 → ANHOBPP 12:39 → ANHLDR 12:55 → ANHOB2 07-25 01:16
PROVIDERS: Advanced Practice Midwife; Admitting Provider Obstetrics & Gynecology; Visit Provider Obstetrics & Gynecology
DX: O13.4 Gestational [pregnancy-induced] hypertension without significant proteinuria, complicating childbirth (principal); Z37.0 Single live birth; Z3A.37 37 weeks gestation of pregnancy; O99.824 Streptococcus B carrier state complicating childbirth; O70.1 Second degree perineal laceration during delivery; O99.214 Obesity complicating childbirth; E66.9 Obesity, unspecified
CPT/HCPCS: 36415; 59025; 80053; 81001; 82570; 84156; 84550; 85014; 85018; 85025; 86592; 86703; 86850; 86900; 86901; 87086; 87088; 88307; A9270; G0432; J0290; J2590; J2795; J3010; J7120

== ENCOUNTER → 2020-09-19 02:42 | Outpatient (CLI) | payer OTHER, SELFPAY ==
[2020-09-19 18:14] LABS: SARS-CoV-2 RNA PCR Negative
== END ==
PROVIDERS: Visit Provider Obstetrics & Gynecology
DX: Z01.812 Encounter for preprocedural laboratory examination (principal); Z20.822 Contact with and (suspected) exposure to COVID-19
CPT/HCPCS: C9803; U0003; U0005

== ENCOUNTER 2020-09-22 00:19 | Day surgery (SDC) | payer OTHER, SELFPAY ==
[2020-09-11 10:25] VITALS: BMI 33.0
[2020-09-22] VITALS (8 sets, daily range): BP systolic 98–136; BP diastolic 62–88; PULSE 72–105; RESP 12–20; TEMP 36.1–36.3; O2SAT 99–100
--- NOTE | 2020-09-22 09:59 | P.PNAN_ITS ---
Anes - Initial Pre Proc Eval Procedure: Operation Date: 09/22/20 11:30 Proposed Procedures p Laparoscopic Bilateral Tubal Sterilization with Fulgeration - Maria Teresa Cary MD Date/Time: 09/22/20 09:59 Surgeon: Maria Teresa Cary MD Pre Op Diagnosis: desires sterilization Patient Data Age: 30 Gender: F Height: 5 ft Weight: 75.82 kg Last Vital Signs Temp 36.3 C L 09/22/20 09:31 Pulse 105 H 09/22/20 09:31 Resp 20 09/22/20 09:31 BP 136/88 09/22/20 09:31 Pulse Ox 100 09/22/20 09:31 Allergies Allergy/AdvReac Type Severity Reaction Status Date / Time No Known Allergies Allergy Unverified 09/11/20 10:24 Home Medications Medication Instructions Recorded Confirmed Type valacyclovir 500 mg PO HS 07/25/20 09/11/20 History sertraline 50 mg PO DAILY 09/11/20 09/11/20 History Patient hx anesthesia problems: none Family hx anesthesia problems: none [facility] Past Medical History Medical History Anxiety Herpes Obesity Shingles Social History Social History Smoking status: Never smoker Alcohol intake: current Alcohol use details: 3/MONTH Substance use: never Substance use type: does not use Living arrangements: with family Gender identity (if verbalized by the patient): Female Spiritual care concerns: No Anes - Eval Final PreProcedure Day of Procedure 09/22/20 09:59 Patient weight: obese Heart: regular rate and rhythm Lungs: clear to auscultation Airway: Mallampati scale class 1 Neurological: alert and oriented Last oral intake: >/= 8 hours ASA classification: II Emergent: no Anesthetic plan: proceed Anesthesia type and monitoring: general ETT and standard monitoring Informed Consent: The patient's anesthetic plan and its attendant risks and benefits were discussed with the patient/family/POA. Questions were solicited and answers provided to the satisfaction of the patient/family/POA.
[2020-09-22] MEDS: ACETAMINOPHEN 500 MG TABLET 1000 MG PO (10:12)
[2020-09-22] MEDS: LACTATED RINGERS 1,000 ML 30 ML IV CONT (10:15)
[2020-09-22] MEDS: KETOROLAC 15 MG/ML VIAL (*BKC) IV PUSH (10:17)
--- NOTE | 2020-09-22 10:38 | WPDHPUPDATE1 ---
History and Physical Update Update Date/Time: 09/22/20 10:38 History and Physical has been reviewed, including an updated exam of the patient. There are NO changes in the patient's condition. Risks, benefits, and alternatives have been discussed and questions answered. Patient agrees to proceed with procedure.
--- NOTE | 2020-09-22 11:21 | PM.PROC ---
Procedure Note - Detailed Date of procedure: 09/22/20 Pre-op diagnosis: desires sterilization Post-op diagnosis: same Procedure performed: Laparoscopic bilateral tubal ligation Description of procedure: Patient was taken the operating room. She has prepped draped in the dorsal lithotomy position after induction of general anesthesia. A 5 mm abdominal incision was made in left upper quadrant of the abdomen with scalpel. A 5 mm trocars inserted the intra-abdominal cavity under direct visualization of the scope. Pneumoperitoneum was achieved. A 5 mm periumbilical incision was made using a scalpel on the abdominal scan. A 5 mm trocar was inserted the intra-abdominal cavity under visualization of the scope. The fallopian tube was grasped with the bipolar cautery in the ampullary region. It was completely desiccated in a 1.5 cm area of the fallopian tube. This was performed in identical fashion on the contralateral side. The instruments were withdrawn. The pneumoperitoneum was reduced. The trocars were removed. The skin was closed with subcuticular 4 Monocryl. This incisions were covered with Dermabond. The patient tolerated the procedure well. She was taken to recover room in stable condition. Anesthesia: GETA Surgeon: Maria Teresa Cary MD Estimated blood loss (mL): 10 Drains: No Packing: No Pathology: none sent Complications: No immediate complications Condition: stable Disposition: PACU Findings: Normal female pelvic anatomy.
--- NOTE | 2020-09-22 12:08 | SUR.PHASEI ---
1205- awake, family member updated.
[2020-09-22] MEDS: oxyCODONE HCL (*CRX) 5 MG TAB IR PO (12:38)
== END 2020-09-22 13:14 | disposition home or self-care (01) ==
PROVIDERS: Visit Provider Obstetrics & Gynecology
PROC: (CPT 58671; principal; 2020-09-22 11:30)
DX: Z30.2 Encounter for sterilization (principal); F41.9 Anxiety disorder, unspecified; E66.8 Other obesity; Z68.32 Body mass index [BMI] 32.0-32.9, adult
CPT/HCPCS: 58670; A9270; C9803; J1885; J2250; J3010; J7120; U0003; U0005

== ENCOUNTER 2023-06-27 14:39 | Emergency (ER) | payer OTHER, SELFPAY ==
--- NOTE | ~2023-06-27 | CT_ITS ---
EXAMINATION: CT abdomen pelvis wo con DATE: 06/27/2023 15:23 INDICATION: Left flank tenderness. Low abdominal pain. TECHNIQUE: Computed tomography (CT) of the abdomen and pelvis was performed without intravenous contr ast. Automated exposure control and iterative reconstruction technique were employed. The dose-length product was 1027.87 mGy-cm. COMPARISON: None. FINDINGS: The visualized portions of the lung bases are clear without pneumonia or pleural effusion. The heart size is normal. No pericardial effusion. The liver, gallbladder, spleen, pancreas, adrenal glands, and kidneys are normal. There is no urolithiasis. There are no dilated loops of bowel. The ap pendix is normal. There are no pathologically enlarged lymph nodes. There is no free intraperitoneal fluid. There is mild lumbar spondylosis. IMPRESSION: 1. No urolithiasis. Reviewed, dictated and finalized at location [facility]. [employer] IMPRESSION: 1. No urolithiasis.
[2023-06-27 14:47] VITALS: BP 140/88; PULSE 108; RESP 18; TEMP 36.4; O2SAT 100
--- NOTE | 2023-06-27 14:49 | ED.FEMALEGU ---
HPI - Female Genitourinary General Chief complaint: Urogenital-Female Stated complaint: pain while urinating Time Seen by Provider: 06/27/23 14:50 Focused HPI: This is a 32-year-old female who presents to the ED with chief complaint of dysuria and lower abdominal pain beginning around 10:00 a.m. this morning. Reports burning with urination and urgency. Reports constant suprapubic abdominal pain. She reports she had some mild left flank pain as well. Denies fevers, chills, nausea, vomiting, diarrhea or problems with bowel movements. Last menstrual period was 7 days ago. GENERAL: Well-appearing, well-nourished, and in no acute distress. HEAD: Normocephalic, atraumatic. CHEST: Clear to auscultation. No respiratory distress. HEART: Regular rate and rhythm. ABD: Mild left flank tenderness. Mild suprapubic tenderness. Abdomen soft and nondistended. NEURO: Alert and oriented x3. Patient screened in triage and initial orders placed. Additional care and disposition to be based upon diagnostic testing and treatment. Source: patient Mode of arrival: ambulatory Limitations: no limitations Related Data Home Medications Medication Instructions Recorded Confirmed sertraline 50 mg tablet 50 mg PO DAILY 09/11/20 12/04/20 Allergies Allergy/AdvReac Type Severity Reaction Status Date / Time No Known Allergies Allergy Unverified 12/04/20 15:44 Review of Systems Review of Systems: All systems as dictated in [facility] Past Medical History Medical History (Updated 06/27/23 @ 15:37 by Margarito Basilio PA-C) Anxiety Herpes Obesity Shingles Surgical History Surgical History (Updated 12/04/20 @ 17:05 by Sascha Dover MD) History of tubal ligation Family History Family History (Updated 12/04/20 @ 17:06 by Sascha Dover MD) Father Diabetes mellitus Mother Breast cancer Social History Social History Smoking status: Never smoker Alcohol intake: current Alcohol use details: 3/MONTH Substance use: never Substance use type: does not use Living arrangements: with family Gender identity (if verbalized by the patient): Female Sexual Orientation (if Verbalized by the Patient): Straight or Heterosexual Spiritual care concerns: No Exam Narrative: GENERAL: Well-appearing, well-nourished, and in no acute distress. HEAD: Normocephalic, atraumatic. EYES: PERRLA and EOMI. ENT: Nares clear, no rhinorrhea or epistaxis. Mucous membranes moist. Oropharynx without tonsillar hypertrophy exudate or other lesions. NECK: Supple. No adenopathy or masses. CHEST: No respiratory distress. Clear to auscultation. No wheezes rales or rhonchi HEART: Regular rate and rhythm. No murmur heard. Normal peripheral pulses. ABDOMEN: mild suprapubic and left flank tenderness present. Soft, otherwise nontender, nondistended, normal active bowel sounds. MSK: Normal range of motion. No edema. SKIN: Warm, dry, no rash. NEURO: Alert and oriented x3. No focal deficits. PSYCH: Normal mood and affect. Course Vital Signs Vital signs: Vital Signs Temperature 97.6 F 06/27/23 14:47 Pulse Rate 108 H 06/27/23 14:47 Respiratory Rate 18 06/27/23 14:47 Blood Pressure 140/88 06/27/23 14:47 Pulse Oximetry 100 06/27/23 14:47 Oxygen Delivery Room Air 06/27/23 14:47 Temperature 97.6 F 06/27/23 14:47 Pulse Rate 108 H 06/27/23 14:47 Respiratory Rate 18 06/27/23 14:47 Blood Pressure 140/88 06/27/23 14:47 Pulse Oximetry 100 06/27/23 14:47 Oxygen Delivery Room Air 06/27/23 14:47 MDM - Female Genitourinary MDM Narrative Medical decision making narrative: this is a 32-year-old female who presents to the ED with chief complaint of dysuria and suprapubic pain. Vitals are normal. Exam shows mild left flank tenderness. Lab work remarkable for an elevated white count of 13.8. CMP unremarkable. Urinalysis shows
[2023-06-27 15:15] LABS: Basophils Absolute Auto 0.1 K/mm3 (0.0-0.1); Basophils Percent Auto 0.7 % (0.2-1.2); Eosinophils Absolute Auto 0.1 K/mm3 (0-0.3); Eosinophils Percent Auto 0.8 % (0-4.4); Hemoglobin 10.6 g/dL (12.0-15.0); Immature Granulocyte Absolute 0.04 K/mm3 (0.00-0.031); Immature Granulocyte Percent A 0.3 % (0-0.5); Lymphocytes Percent Auto 20.3 % (18.3-44.2); Mean Corpuscular HGB Conc 30.3 g/dl (32-36); Mean Corpuscular Volume 75.9 fl (80-100); Mean Platelet Volume 8.4 fl (7.4-10.4); Monocytes Absolute Auto 0.8 K/mm3 (0.1-0.6); Monocytes Percent Auto 5.5 % (2.6-8.5); Neutrophils Percent Auto 72.4 % (45.5-73.1); Platelet Count Result 552 k/mm3 (150-375); Red Blood Count 4.61 M/mm3 (4.2-5.4); Red Cell Distribution Width 15.7 % (11.5-14.5); White Blood Count 13.8 K/mm3 (4.5-10.0)
[2023-06-27 15:18] LABS: Alanine Aminotransferase 29 U/L (6-35); Albumin Level 4.3 g/dL (3.5-5.1); Alkaline Phosphatase 120 U/L (38-126); Anion Gap 6 mmol/L (8-16); Aspartate Amino Transferase 29 U/L (14-36); Bilirubin,Total 0.3 mg/dL (0.2-1.3); Blood Urea Nitrogen 10 mg/dL (7-17); Calcium 9.3 mg/dL (8.4-10.2); Carbon Dioxide 29 mmol/L (22-30); Chloride 101 mmol/L (98-107); Estimated CRCL calculation 97 ml/min; Estimated Glomerular Filt Rate > 60; Glucose 131 mg/dL (65-110); Potassium 3.5 mmol/L (3.4-5.0); Sodium 136 mmol/L (137-145)
[2023-06-27 15:31] LABS: Add Urine Microscopic? YES; Appearance Urine Cloudy (Clear); Bacteria Urine Rare /hpf; Bilirubin Urine Negative (Negative); Blood Urine 3+ (Negative); Color Urine Yellow (Yellow); Glucose Urine UA Negative (Negative); Ketones Urine Trace mg/dL (Negative); Leukocyte Esterase Ur 2+ LEU/UL (Negative); Nitrate Urine Negative (Negative); Non Pathogenic Casts 0-2; Protein Urine 2+ mg/dL (Negative); RBC Urine >100 /hpf (0-2); Squamous Epithelial Cell Urine Occasional /hpf (Few); WBC Urine >100 /hpf; pH Urine >=9.0 (5.0-9.0)
== END 2023-06-27 16:13 | disposition home or self-care (01) ==
LOC: ANHED 15:40
PROVIDERS: Emergency Provider Physician Assistant
DX: N39.0 Urinary tract infection, site not specified (principal); E66.9 Obesity, unspecified; Z68.35 Body mass index [BMI] 35.0-35.9, adult; F41.9 Anxiety disorder, unspecified
CPT/HCPCS: 36415; 74176; 80053; 81001; 81025; 85025; 87086; 87088; 99284

== ENCOUNTER 2023-11-21 10:37 | Emergency (ER) | payer OTHER, SELFPAY ==
[2023-11-21 10:39] VITALS: BP 136/86; PULSE 92; RESP 18; TEMP 36.4; O2SAT 100
--- NOTE | 2023-11-21 11:44 | ED.ABDPAIN ---
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 patient denies urinary symptoms or hx of abdominal issues. no other complaints. PE: A&Ox3, BS CTA, tenderness to lower abdomen with palpation with no masses palpated. 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 Patient was lifting a box at her work when she felt like she pulled a muscle in her lower abdomen. The pain has since resolved. Patient does not have any other symptoms such as fevers chills nausea vomiting diarrhea or urinary symptoms. She has not taken anything for pain control. Patient is here because her work told her to get checked out. No use of blood thinners. PE: A&Ox3, BS CTA, tenderness to lower abdomen with palpation with no masses palpated. patient moving all extremities <Driss Mccollum MD - Last Filed: 11/21/23 12:29> Related Data Home Medications: Home Medications Medication Instructions Recorded Confirmed sertraline 50 mg tablet 50 mg PO DAILY 09/11/20 12/04/20 <Jonathan Issa APRN - Last Filed: 11/21/23 11:46> Allergies/Adverse Reactions: Allergies Allergy/AdvReac Type Severity Reaction Status Date / Time No Known Allergies Allergy Verified 11/21/23 10:39 <Jonathan Issa APRN - Last Filed: 11/21/23 11:46> [facility] Past Medical History Medical History: Medical History (Updated 11/21/23 @ 12:27 by Driss Mccollum MD) Anxiety Herpes Obesity Shingles <Jonathan Issa APRN - Last Filed: 11/21/23 11:46> Surgical History Surgical History: Surgical History (Updated 12/04/20 @ 17:05 by Sascha Dover MD) History of tubal ligation <Jonathan Issa APRN - Last Filed: 11/21/23 11:46> Family History Family History: Family History (Updated 12/04/20 @ 17:06 by Sascha Dover MD) Father Diabetes mellitus Mother Breast cancer <Jonathan Issa APRN - Last Filed: 11/21/23 11:46> Social History Social History: Social History Smoking status: Never smoker Alcohol intake: current Alcohol use details: 3/MONTH Substance use: never Substance use type: does not use Living arrangements: with family Gender identity (if verbalized by the patient): Female Sexual Orientation (if Verbalized by the Patient): Straight or Heterosexual Spiritual care concerns: No <Jonathan Issa APRN - Last Filed: 11/21/23 11:46> Exam Narrative: APPEARANCE: No apparent distress. Head: atraumatic. EYES: EOMI, NOSE: Atraumatic NECK: Trachea midline RESPIRATORY: No increased rate of breathing CARDIOVASCULAR: RRR, ABDOMINAL: Abdomen is soft nontender with no guarding or rebound. No CVA tenderness MUSCULOSKELETAl: No obvious deformities NEURO: Alert. Moving 4/4 extremities SKIN:: Warm, dry. Normal color PSYCHIATRIC: Normal affect <Driss Mccollum MD - Last Filed: 11/21/23 12:29> Course Vital Signs Vital signs: Vital Signs Temperature 97.6 F 11/21/23 10:39 Pulse Rate 92 11/21/23 10:39 Respiratory Rate 18 11/21/23 10:39 Blood Pressure 136/86 11/21/23 10:39 Pulse Oximetry 100 11/21/23 10:39 Temperature 97.6 F 11/21/23 10:39 Pulse Rate 92 11/21/23 10:39 Respiratory Rate 18 11/21/23 10:39 Blood Pressure 136/86 11/21/23 10:39 Pulse Oximetry 100 11/21/23 10:39 <Jonathan Issa APRN - Last Filed: 11/21/23 11:46> Vital Signs Temperature 97.6 F 11/21/23 10:39 Pulse
[2023-11-21 11:59] LABS: BEDSIDEPREGUCG Negative
[2023-11-21 12:03] LABS: Basophils Absolute Auto 0.1 K/mm3 (0.0-0.1); Basophils Percent Auto 0.7 % (0.2-1.2); Eosinophils Absolute Auto 0.2 K/mm3 (0-0.3); Eosinophils Percent Auto 1.8 % (0-4.4); Hemoglobin 10.8 g/dL (12.0-15.0); Immature Granulocyte Absolute 0.04 K/mm3 (0.00-0.031); Immature Granulocyte Percent A 0.4 % (0-0.5); Lymphocytes Absolute Auto 2.21 K/mm3 (0.9-3.2); Lymphocytes Percent Auto 21.5 % (18.3-44.2); Mean Corpuscular Hemoglobin 23.3 pg (26-34); Mean Corpuscular Volume 77.8 fl (80-100); Mean Platelet Volume 8.6 fl (7.4-10.4); Monocytes Absolute Auto 0.7 K/mm3 (0.1-0.6); Monocytes Percent Auto 6.9 % (2.6-8.5); Neutrophils Absolute Auto 7.1 K/mm3 (1.3-6.7); Neutrophils Percent Auto 68.7 % (45.5-73.1); Platelet Count Result 509 k/mm3 (150-375); Red Blood Count 4.63 M/mm3 (4.2-5.4); Red Cell Distribution Width 15.8 % (11.5-14.5); White Blood Count 10.3 K/mm3 (4.5-10.0)
[2023-11-21 12:08] LABS: Add Urine Microscopic? YES; Appearance Urine Clear (Clear); Bacteria Urine 1+ /hpf; Bilirubin Urine Negative (Negative); Blood Urine Negative (Negative); Color Urine Yellow (Yellow); Glucose Urine UA Negative (Negative); Ketones Urine Negative (Negative); Leukocyte Esterase Ur 1+ LEU/UL (Negative); Nitrate Urine Negative (Negative); Non Pathogenic Casts 0-2; Protein Urine Negative (Negative); RBC Urine 0-2 /hpf (0-2); Specific Grav Ur 1.027 (1.001-1.035); Squamous Epithelial Cell Urine Occasional /hpf (Few); Urobilinogen Urine 0.2 mg/dL (<2.0)
[2023-11-21 12:09] LABS: Alanine Aminotransferase 28 U/L (6-35); Albumin Level 4.5 g/dL (3.5-5.1); Alkaline Phosphatase 126 U/L (38-126); Amylase 64 U/L (30-110); Anion Gap 12 mmol/L (4-12); Aspartate Amino Transferase 24 U/L (14-36); Bilirubin,Total 0.3 mg/dL (0.2-1.3); Blood Urea Nitrogen 9 mg/dL (7-17); Calcium 9.3 mg/dL (8.4-10.2); Carbon Dioxide 26 mmol/L (22-30); Chloride 100 mmol/L (98-107); Estimated CRCL calculation 97 ml/min; Estimated Glomerular Filt Rate > 60; Glucose 83 mg/dL (65-110); Lipase 113 U/L (23-300); Potassium 3.8 mmol/L (3.4-5.0); Sodium 138 mmol/L (137-145)
[2023-11-21] MEDS: methocarbamoL 750 MG TABLET 1500 MG PO (12:40)
[2023-11-21] MEDS: IBUPROFEN 400 MG TABLET 800 MG PO (12:41)
[2023-11-21] MEDS: ACETAMINOPHEN 500 MG TABLET 1000 MG PO (12:41)
[2023-11-21 12:51] VITALS: BP 118/76; PULSE 78; RESP 16; TEMP 36.6; O2SAT 100
== END 2023-11-21 12:53 | disposition home or self-care (01) ==
PROVIDERS: Nurse Practitioner Family; Emergency Provider Emergency Medicine
DX: S39.011A Strain of muscle, fascia and tendon of abdomen, initial encounter (principal); F41.9 Anxiety disorder, unspecified; E66.9 Obesity, unspecified; Z68.36 Body mass index [BMI] 36.0-36.9, adult; Z79.899 Other long term (current) drug therapy; X50.0XXA Overexertion from strenuous movement or load, initial encounter
CPT/HCPCS: 36415; 80053; 81001; 81025; 82150; 83690; 85025; 87086; 87088; 99283; A9270

== ENCOUNTER 2024-05-18 09:17 | Emergency (ER) | payer OTHER, SELFPAY ==
[2024-05-18 09:25] VITALS: BP 132/85; PULSE 84; RESP 20; TEMP 36.4; O2SAT 100
--- OUTSIDE RECORDS SUMMARY | 2024-05-18 09:39 | XMS_ITS | Patient Health Summary ---
Author Organization [facility] Address [address] [place] [address] Care Team Providers Care Stringed Instrument Repairer Name Role Phone Unavailable Primary Care Provider Unavailabl e Note from [facility] [place],non-owned Affiliates and Associated Physician Practices is amultiple site organization consisting of ambulatory clinics and hospital sitesin [place], [place], [place] and [place]. This disclosure is being madepursuant to the Care Everywhere program and may not contain all information available regarding this patient. Last updated 18.[facility] Allergies No known active allergies Medications * Be aware that medications may not be up to date on this document. Alwaysverify current medications with the patient. * Vit-Fe Fumarate-FA ( VITAMIN) 28-0.8 MG tablet Take 1 tablet by mouth once daily Reasons: * ferrous sulfate 325 (65 FE) MG tablet Take 325 mg by mouth once daily * valACYclovir (VALTREX) 1 GM tablet Take 1,000 mg by mouth every 12 hours Reasons: Genital Herpes * vitamin D3 (CHOLECALCIFEROL) 25 MCG (1000 UNITS) tablet Take 1,000 Units by mouth once daily Reasons: Vitamin D Deficiency Active Problems Problem Noted Date Diagnosed Date HSV infection 06/07/2020 Gestational HTN 06/07/2020 Shingles 08/20/2019 Social History Tobacco Use Types Packs/Day Years Used Date Smoking Tobacco: Never Smokeless Tobacco: Never Alcohol Use Standard Drinks/Week Comments Not Currently 0 (1 standard drink = 0.6 oz pur e alcohol) Sex and Gender Information Value Date Recorded Sex Assigned at Not on file Gender Identity Not on file Sexual Orientation Not on file Last Filed Vital Signs Vital Sign Reading Time Taken Comments Blood Pressure 125/76 06/14/2020 9:15 AM EMBROIDERER Pulse 96 06/14/2020 9:15 AM EMBROIDERER Temperature 36.6 ??C (97.8 ??F) 06/14/2020 9:15 AM CS T Respiratory Rate - - Oxygen Saturation - - Inhaled Oxygen Concentration - - Weight 80.3 kg (177 lb) 06/14/2020 9:15 AM EMBROIDERER Height 152.4 cm (5') 06/14/2020 9:15 AM EMBROIDERER Body Mass Index 34.57 06/14/2020 9:15 AM EMBROIDERER Procedures * SONOGRAM - COMPLETE(Performed 06/12/2020) Performed for HSV infection Results * SONOGRAM - COMPLETE (06/12/2020 8:59 AM EMBROIDERER) Anatomical Region Laterality Modality Other 06/12/2020 8:59 AM EMBROIDERER Narrative 06/12/2020 1:15 PM EMBROIDERER ? [facility] ?PHONE: ??FAX: Pat. Name: ?SABRINA VERDIN No: ?[id number] Study Date: ?? 06/12/2020 ??8:59am , Age: ? 1990, 29 Pregnancies: ?? 3, Para 1 Height: ? 60 in Weight: ? 153 lb LMP: ?11/02/2019 GA by LMP: ?31w6d GA by US: ? 32w5d ?? LUC: 08/02/2020 GA Selected: ??31w6d (LMP) LUC: ?08/08/2020 Referring MD: Sourav Cary MD Bill Sorter: ??Zora Barney RDMS CPT4: ? 88375 BMI: ?29.88 Hist/Ind: ? HSV and Shingles in ?G1: GHTN MEASUREMENTS & AGE ? GROWTH EVALUATION Measurement ??GA ? Range ? Srce %for GA Ratios ----- ---- ------- BPD ??8.1 cm 32w5d ([id number]) Hadl BPD 64% FL/BPD 0.78 (0.71 - 0.87) HC ??30.1 cm 33w3d (64r7m-10m8b) Hadl HC ??55% FL/AC ??0.21 (0.20 - 0.24) AC ??29.6 cm 33w4d (39y9s-71w5y) Hadl AC ??90% HC/AC ??1.02 (0.96 - 1.15) FL ?? 6.3 cm 32w5d (79q0i-84c2x) Hadl FL ??60% CI ? 0.75 (0.70 - 0.86) HL ?? 5.4 cm 31w2d (51m4g-59z8c) Ponce HL ??41% Cere 4.0 cm 32w1d (51y6r-72s8d) Brendan Cere56% GA for sonogram 32w5d (61t0k-60g7l) ?? Weight Estimate: based on (HL,BPD,HC,AC,FL,Cere) Avg ??Weight: 2155 gm (1840-2470gm) Had ? : 4lbs, 12oz ? Normal: 1933 gm (1450- 2416gm) Had ? Wt% ? 81% for 31w6d Heart Rate: 141 bpm Amniotic Fluid Index: 12.3cm (08.6-24.2) Q1: 2.3cm ??Q2: 3.6cm ??Q3: 3.2cm ??Q4: 3.2cm ?? EVAL, PLACENTA Presentation: cephalic Umbilical Cord: 3 Vessels Placenta: anterior Heart Rate: 141 bpm Amniotic Fluid Volume: normal Anatomy!Normal!Abnormal!Suboptimal!Prev. Seen!Comments Cranium ?! ?? x ??! ?! ?! ?! Mdl (CSP/Thal! ?? x ??! ?! ?! ?! Ventricles ?? ! ?? x ??! ?! ?! ?! Choroid Plexu! ?? x ??! ?! ?! ?! Cerebellum ?? ! ?? x ??! ?! ?! ?! Cerebellar Ve! ?? x ??! ?! ?! ?! Cisterna M. ??! ?? x ??! ?! ?! ?! Orbits ? ! ?? x ??! ?! ?! ?! Profile ?! ?! ?! ? x ?! ?! Nasal Bone ?? ! ?! ?! ? x ?! ?! Lip ?! ?! ?! ? x ?! ?! Maxilla ?! ?? x ??! ?! ?! ?! Mandible ? ! ?? x ??! ?! ?! ?! Neck ? ! ?? x ??! ?! ?! ?! Spine ?! ?? x ??! ?! ?! ?! Lungs ?! ?? x ??! ?! ?! ?! 4 Chamber Hea! ?? x ??! ?! ?! ?! LVOT ? ! ?? x ??! ?! ?! ?! RVOT ? ! ?? x ??! ?! ?! ?! 3 Vessel View! ?! ?! ? x ?! ?! 3 Vessel Trac! ?! ?! ? x ?! ?! Cross-over ?? ! ?? x ??! ?! ?! ?! Ductal Arch ??! ?? x ??! ?! ?! ?! Aortic Arch ??! ?? x ??! ?! ?! ?! Caval View ?? ! ?? x ??! ?! ?! ?! Situs ?! ?? x ??! ?! ?! ?! Diaphragm ?! ?? x ??! ?! ?! ?! Stomach ?! ?? x ??! ?! ?! ?! Liver ?! ?! ?! ? x ?! ?! Bowel ?! ?? x ??! ?! ?! ?! Kidneys ?! ?? x ??! ?! ?! ?! Bladder ?! ?? x ??! ?! ?! ?! 3 Vessel Cord! ?? x ??! ?! ?! ?! Cord In! ?? x ??! ?! ?! ?! Upper Extremi! ?? x ??! ?! ?! ?! Hands ?! ?! ?! ? x ?! ?! Lower Extremi! ?! ?! ? x ?! ?!unremarkable ?right, suboptimal ?left Feet ? ! ?! ?! ? x ?! ?! External Nita! ?! ?! ? x ?! ?! Placental Cor! ?? x ??! ?! ?! ?! CLINICAL SUMMARY Study Number: 1 ??A single fetus is seen in cephalic presentation. ?? The measurements today are consistent with appropriate size for the LUC provided. ??The LUC is based on her LMP and a prior ultrasound. ??The amniotic fluid volume is within normal limits. ?? anatomy was limited by position and gestational age. ??No major malformations were seen within the limitations of ultrasound. ?? IMPRESSION: Single, live, intrauterine at 31w6d ?? size is consistent with established LUC ?? Amniotic fluid volume: within normal limits ?? RECOMMEND: Ultrasound follow up not scheduled but please do so if need be Thank you for allowing us the opportunity to care for your patient Abdirizak Velasco MD <Electronic Signature> ??06/12/2020 01:15pm R Leno Cary MD [facility] ORDERABLES
--- OUTSIDE RECORDS SUMMARY | 2024-05-18 09:39 | XMS_ITS | Clinical Summary ---
Author Organization [facility] Address [address] [place] [address] Care Team Providers Care Consulting Nurse Name Role Phone Unavailable Primary Care Provider Unavailabl e Source Comments [facility],non-owned Affiliates and Associated Physician Practices is amultiple site organization consisting of ambulatory clinics and hospital sitesin [place], [place], [place] and [place]. This disclosure is being madepursuant to the Care Everywhere program and may not contain all information available regarding this patient. Last updated 18.[facility] Allergies No known active allergies Medications * Be aware that medications may not be up to date on this document. Alwaysverify current medications with the patient. Medication Sig Dispensed Refills Start Date End Date Status Vit-Fe Fumarate-FA ( VITAMIN) 28-0.8 MG tabletIndications:Pr egnancy Take 1 tablet by mouth once daily Reasons: Active ferrous sulfate 325 (65 FE) MG tablet Take 325 mg by mouth once daily Active valACYclovir (VALTREX) 1 GM tabletIndications:Ge nital Herpes Simplex Take 1,000 mg by mouth every 12 hours Reasons: Genital Herpes Active vitamin D3 (CHOLECALCIFEROL) 25 MCG (1000 UNITS) tabletIndications:Vi tamin D Deficiency Take 1,000 Units by mouth once daily Reasons: Vitamin D Deficiency Active Active Problems Problem Noted Date Diagnosed Date 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 She had significant discomfort in the genital region. When she presented to her doctor's office she had viral culture swabs taken of the lesion as well as blood drawn. Office records were reviewed. HSV 1 and 2 IgG titers from May 23 were available which demonstrated elevated HSV 2 IgG and negative HSV 1 IgG. There were no IgM studies for either viral strain available for review. The lesion culture results were not available for review, however the summary reports that the culture was positive for HSV 2. 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 The available data does not suggest that this was the primary infection with HSV 2. The risk for transmission to the from an infected mother is low (<1%) among women with histories of recurrent herpes or who acquire genital HSV during the first half of . I perceive the risk to this from this 1st clinical outbreak to be low. Sabrina is at risk for recurrent genital outbreaks and should receive prophylaxis starting sometime between 34 to 36 weeks of gestation. Maternal Medicine recommendations: 1. HSV prophylaxis starting between 34 to 36 weeks Gestational HTN 06/07/2020 Overview (06/07/2020): G1: Hx of GHTN with 1st Assessment & Plan (06/14/2020 10:21 AM BUFFET SERVER): Sabrina remains at risk for gestational hypertension. She never started aspirin for preeclampsia risk reduction. Shingles 08/20/2019 Assessment & Plan (06/14/2020 10:19 AM BUFFET SERVER): Sabrina does not have a current outbreak of shingles. Zoster [shingles] poses essentially no risk to the fetus or as the as it occurs in patien's who have antibodies against varicella zoster. I advised her to use good hand hygiene and cover the affected area if she were to have another episode of shingles as there is viral shedding until the lesions crust over. Sabrina reports that the recurrence episodes occur on her legs and that she is able to cover these. Family History Medical History Relation Name Comments Diabetes - Gestational Father Cancer - Breast Mother Diabetes - Gestational Paternal Grandfather Relation Name Status Comments Father Alive Maternal Grandfather Alive Maternal Grandmother Alive Mother Alive Paternal Grandfather Paternal Grandmother Alive Social History Tobacco Use Types Packs/Day Years [...] Comments Blood Pressure 125/76 06/14/2020 9:15 AM BUFFET SERVER Pulse 96 06/14/2020 9:15 AM BUFFET SERVER Temperature 36.6 ??C (97.8 ??F) 06/14/2020 9:15 AM CS T Respiratory Rate - - Oxygen Saturation - - Inhaled Oxygen Concentration - - Weight 80.3 kg (177 lb) 06/14/2020 9:15 AM BUFFET SERVER Height 152.4 cm (5') 06/14/2020 9:15 AM BUFFET SERVER Body Mass Index 34.57 06/14/2020 9:15 AM BUFFET SERVER Plan of Treatment Health Maintenance Due Date Last Done Comments PAP SMEAR 1990 HIV SCREENING 08/28/2007 HEPATITIS C SCREENING 08/23/2010 DTAP/TDAP/TD VACCINES (1 - Tdap) 08/28/2011 HEPATITIS B VACCINE (1 of 3 - 19+ 3-dose series) 08/28/2011 COVID-19 VACCINE ( - 2023-2 5 season) 2023 INFLUENZA VACCINE (#1) 2023 DEPRESSION SCREENING 04/21/2024 ZOSTER VACCINE (1 of 2) 2042 HIB VACCINE Aged Out No longer eligi ble based on patient's age to complete this topic HPV VACCINE Aged Out No longer eligi ble based on patient's age to complete this topic MENINGOCOCCAL (Group B) VACCINE Aged Out No longer eligible based on patient's age to complete this topic MENINGOCOCCAL VACCINE Aged Out No glenn carlie eligible based on patient's age to complete this topic PNEUMOCOCCAL VACCINE Aged Out No long er eligible based on patient's age to complete this topic SABRINA VERDIN Personal/Famil y 1990 [address] [place] [address]
--- OUTSIDE RECORDS SUMMARY | 2024-05-18 09:39 | XMS_ITS | Referral Summary ---
Author Organization [facility] Address [address] [place] [address] Care Team Providers Care Stacker Operator Name Role Phone Unavailable Primary Care Provider Unavailabl e Source Comments [facility],non-owned Affiliates and Associated Physician Practices is amultiple site organization consisting of ambulatory clinics and hospital sitesin [place], [place], [place] and [place]. This disclosure is being madepursuant to the Care Everywhere program and may not contain all information available regarding this patient. Last updated 18.[facility] Allergies No known active allergies Medications * [...] Valtrex Assessment & Plan (06/14/2020 10:20 AM HAND SAMPLE MAKER): Sabrina reports that she had her 1st [...] 1st Assessment & Plan (06/14/2020 10:21 AM HAND SAMPLE MAKER): Sabrina remains at risk for gestational hypertension. She never started aspirin for preeclampsia risk reduction. Shingles 08/20/2019 Assessment & Plan (06/14/2020 10:19 AM HAND SAMPLE MAKER): Sabrina does not have a current outbreak [...] that she is able to cover these. Social History Tobacco Use Types Packs/Day Years [...] Comments Blood Pressure 125/76 06/14/2020 9:15 AM HAND SAMPLE MAKER Pulse 96 06/14/2020 9:15 AM HAND SAMPLE MAKER Temperature 36.6 ??C (97.8 ??F) 06/14/2020 9:15 AM CS T Respiratory Rate - - Oxygen Saturation - - Inhaled Oxygen Concentration - - Weight 80.3 kg (177 lb) 06/14/2020 9:15 AM HAND SAMPLE MAKER Height 152.4 cm (5') 06/14/2020 9:15 AM HAND SAMPLE MAKER Body Mass Index 34.57 06/14/2020 9:15 AM HAND SAMPLE MAKER Plan of Treatment Not on file SABRINA VERDIN Personal/Famil y 1990 [address] [place] [address]
--- OUTSIDE RECORDS SUMMARY | 2024-05-18 09:40 | XMS_ITS | Clinical Summary ---
Author Organization [facility] Address [address] [address] [place] [address] Phone Care Team Providers Care Supervisor Multifocal Lens Name Role Phone Triny Da Silva MD Primary Care Provider [phone] Allergies No known active allergies Medications ALPRAZolam (XANAX) 0.5 mg tablet Take 0.5 mg by mouth nightly as needed. Active FLUoxetine (PROzac) 20 mg capsule TAKE 1 CAPSULE BY MOUTH EVERY DAY IN THE MORNING FOR DEPRESSION/A NXIETY FOR 30 DAYS 4 Active ARIPiprazole (ABILIFY) 15 mg tablet TAKE 0.5 TABLETS EVERY DAY BY ORAL ROUTE IN THE MORNING FOR 30 DAYS. Active hydrOXYzine HCL (ATARAX) 25 mg tablet 4 Active cyclobenzaprine (FLEXERIL) 5 mg Tablet Take 5 mg by mouth every 8 hours. Active clotrimazole-betam ethasone (LOTRISONE) 1-0.05 % CreamIndications:C andidiasis, intertriginous Apply to affected area 2 times daily for 14 days. Apply to affected abd rash area. 45 Gram 4 04/20/20 24 Active Problems Problem Noted Date Diagnosed Date Family history of breast cancer in mother- age 4 0 04/06/2024 Family history of early CAD 04/06/2024 Overview (04/06/2024): Fatal PR, mother, age 60. Heavy alcohol and tobacco user. Skin lesion of right lower extremity 03/25/2024 Positive screening for depre ssion on 9-item Patient Health Questionnaire (PHQ-9) 03/25/2024 Obesity (BMI 35.0-39.9 without comorbidity) 02/19 Candidiasis, intertriginous 02/28/2023 Encounters Date Type Department Care Team Description 05/13/2024 External Device Data ST[facility] ABSTRACTION Provider, Abstract 05/12/2024 External Device Data [facility] ABSTRACTION Provider, Abstract 05/11/2024 External Device Data [facility] ABSTRACTION Provider, Abstract 04/06/2024 9:30 AM BOTTLE INSPECTOR Office Visit [facility] [place] [address] [place] [address] Awilda Saeed, MIKI Skin lesion of right lower extremity (Primary Dx); Candidiasis, intertriginous; Family history of early CAD; Family history of breast cancer in mother- age 40 03/25/2024 10:30 AM BOTTLE INSPECTOR Office Visit [facility] [place] [address] [place] [address] Awilda Saeed, MIKI Skin lesion of right lower extremity (Primary Dx); Herpes zoster with other complication; Declined influenza vaccine; Positive screening for depression on 9-item Patient Health Questionnaire (PHQ-9) from Last 3 Months Family History Medical History Relation Name Comments No Known Problems Daughter Diabetes Father Heart Attack Maternal Grandfather No Known Problems Maternal Grandmother Breast Cancer Mother Heart Disease Mother fatal PR Other Paternal Grandfather heart a nd kidney issues unknown Other Paternal Grandmother complic ations from surgery No Known Problems Son Relation Name Status Comments Brother 1 Alive Brother 2 Alive Brother 3 Alive Daughter Alive Father Alive Maternal Grandfather Maternal Grandmother Mother Paternal Grandfather Paternal Grandmother Son Alive Social History Tobacco Use Types Packs/Day Years Used Date Smoking Tobacco: Never Smokeless Tobacco: Never Tobacco Cessation:Counseling Given: Not Answered Alcohol Use Standard Drinks/Week Comments Yes 0 (1 standard drink = 0.6 oz pur e alcohol) occasionally Comments No Sex and Gender Information Value Date Recorded Sex Assigned at Not on file Legal Sex Female 8:43 AM CDT Gender Identity Not on file Sexual Orientation Not on file Last Filed Vital Signs Vital Sign Reading Time Taken Comments Blood Pressure 118/70 04/06/2024 9:32 AM BOTTLE INSPECTOR Pulse 80 04/06/2024 9:32 AM BOTTLE INSPECTOR Temperature 36.8 ??C (98.3 ??F) 04/06/2024 9:32 AM CS T Respiratory Rate 18 04/06/2024 9:32 AM BOTTLE INSPECTOR Oxygen Saturation 98% 04/06/2024 9:32 AM BOTTLE INSPECTOR Inhaled Oxygen Concentration - - Weight 84.8 kg (187 lb) 04/06/2024 9:32 AM BOTTLE INSPECTOR Height 152.4 cm (5') 04/06/2024 9:32 AM BOTTLE INSPECTOR Body Mass Index 36.52 04/06/2024 9:32 AM BOTTLE INSPECTOR Plan of Treatment Upcoming Encounters Date Type Department Care Team (Late st Contact Info) Description 10/04/2024 9:30 AM CDT Office Visit [facility] [place] [address] [place] [address] Awilda Saeed, ANP [address] [place] [address] Health Maintenance Due Date Last Done Comments HEPATITIS B VACCINES (1 of 3 - 19+ 3-dose series) 08/28/2011 CERVICAL CANCER SCREENING 2022 DTAP/TDAP/TD VACCINES (2 - T d or Tdap) 10/03/2030 10/03/2020 INFLUENZA VACCINE Completed 03/25/2024 HPV VACCINES Aged Out No longer eligi ble based on patient's age to complete this topic PNEUMOCOCCAL VACCINE 0-64 YEARS Aged Out No longer eligible based on patient's age to complete this topic Procedures Procedure Name Priority Date/Time Associated Diagnosis Comments VZV BY PCR, NON BLOOD Routine 03/25/2024 11:26 AM BOTTLE INSPECTOR Herpes zoster with other complication WOUND CULTURE WITH GRAM STAIN Routine 03/25/2024 11:26 AM BOTTLE INSPECTOR Herpes zoster with other complication from Last 3 Months Results * WOUND (AEROBIC) CULTURE WITH GRAM STAIN (03/25/2024 11:26 AM BOTTLE INSPECTOR) AEROBIC CULTURE SEE NOTE Ques t Jessica-S andree Vaughan Comment: ??CULTURE, AEROBIC BACTERIA WITH GRAM STAIN ?Micro Number: ?[id number] ??Test Status: ? Final ??Specimen Source: ?? Leg ??Specimen Quality: ??Adequate ??Gram Stain: ?Few White blood cells seen ? Rare Gram positive cocci ??Result: ?Growth of skin jerry (note: Growth does not ? include S. aureus, beta-hemolytic Streptococci ? or P. aeruginosa). Test Performed at: [place] [address] [place] ??[address] CalliEugenia Chiang Lesion/Drainage Fluid (Leg) 03/25/2024 11:26 AM BOTTLE INSPECTOR 03/26/2024 5:17 AM BOTTLE INSPECTOR Awilda Saeed ANP MICROBIOLOGY - GENERAL ORDER CARLOS Final Result [facility] [phone] [place] [address] [place] [address] * VZV BY PCR, NON BLOOD (03/25/2024 11:26 AM BOTTLE INSPECTOR) SOURCE *LEG [facility] VARICELLA ZOSTER VIRUS (VZV) DNA, QL RT PCR Not Detected Not Detected [facility] Comment: (Note) This test was developed and its analytical performance characteristics have been determined by [facility]. It has not been cleared or approved by the U.S. Food and Drug Administration. This assay has been validated pursuant to the CLIA regulations and is used for clinical purposes. [facility] [address] [address],[address] [facility] [address] Tristian Hodge MD, PhD Test Performed at: [facility] [address] [place], [place] ??[address] Tristian Hodge MD,PhD Lesion/Drainage Fluid (Leg) 03/25/2024 11:26 AM BOTTLE INSPECTOR 03/26/2024 5:17 AM BOTTLE INSPECTOR us Awilda Saeed ANP BODY FLUIDS AND STOOLS Final Result [facility] [phone] [facility] [address], [address] [place] [address] from Last 3 Months Insurance * Guarantor: [employer] Account Type Relation to Patient Date of Phone Billing Address Corporate Employer ATTN: CASSANDRA ERICKSON [address] [address] ALLEGIAN OPEN ACCESS Care Teams Supervisor Multifocal Lens Relationship Specialty Start Date End Date Triny Da Silva MD [address] [place] [address] PCP - General Internal Medicine 03/25/24
--- OUTSIDE RECORDS SUMMARY | 2024-05-18 09:40 | XMS_ITS | Continuity of Care Document ---
Author Organization [facility] Address [address] [place] [address] Phone Care Team Providers Care Creative Coordinator Name Role Phone Rad Fontenot DO Unavailable Unavailable Advance Directives Directive Yes / No Effective Date File Name No Information Encounters Encounter Description Practice Location Reason(s) For Visit Diagnoses Date Provider Providers Copied on Encounter [facility], [address], [place], [place], [id number], [phone] [facility] [place] No Information Corie Mayfield. [address] [place], [address], . tel: [phone] Family History Family Member Type Diagnosis Age At Onset No Information Payers Payer name Insurance type Covered alliance party ID Authoriza tion(s) Medicaid [facility] [id number] Social History Type Description Quantity Date Captured Comments Sex Female Smoking Status No Information Chief Complaint And Reason For Visit No Information Reason For Referral Reason For Referral No Information History Of Present Illness Encounter Date Complaint History Of Prese nt Illness No Information Functional Status Date Functional Assessmen t No Information Instructions Date Instruction Additional Infor mation No Information Assessments Type Assessment Date No Information Patient Care Teams Name Effective Dates (start - stop) Status Members No Information
--- OUTSIDE RECORDS SUMMARY | 2024-05-18 09:40 | XMS_ITS | Data Portability ---
Author Organization [facility] Address [address] [place] [address] Care Team Providers Care Thermodynamicist Name Role Phone GEORGE THORPE Primary Care Provider Assessment No assessment recorded. Plan of Treatment Reminders Order Date Submit Date Provider Last Modified By Organization Details Last Modified Time Details Appointments None recorded. Lab None recorded. Referral None recorded. Procedures None recorded. Surgeries None recorded. Imaging None recorded. Medication Orders sertraline 50 mg tablet 2022 023 [id number], [address], [place], [address], 3 20:20:25 Xanax 0.5 mg tablet 2022 023 [email or web address] [facility][id number], [address], [place], [address], 3 22:09:00 sertraline 100 mg tablet 2022 023 [email or web address] [id number], [address], [place], [address], 3 14:40:13 Xanax 0.5 mg tablet 2022 023 [facility]I [facility] #[id number], [address], [place], [address], 3 12:59:13 Patient TargetsNo targets recorded. Patient InstructionsNo instructions recorded. Reason for Referral None Reported. Results Created Date Observation Date Name Description Value Unit Range Abnormal Flag Note LastModifiedBy Organization Detail LastModifiedTime 08/23/19 21 08/22/2020 CBC w/ auto diff WBC 7.2 10'3/ uL 3.6-10 .2 Not Available [facility] (Lab) [address], [place], [address], 08/23/2020 08:15:44 08/23/19 21 08/22/2020 CBC w/ auto diff RBC 4.50 10'6/ uL (based on docume nted legal sex) 4.10-5 .30 Not Available [facility] (Lab) [address] [place], [address], 08/23/2020 08:15:44 08/23/19 21 08/22/2020 CBC w/ auto diff HGB 10.5 g/dL (based on docume nted legal sex) 11.9-1 5.8 low Not Available [facility] (Lab) [address] [place], [address], 08/23/2020 08:15:44 08/23/19 21 08/22/2020 CBC w/ auto diff HCT 37.5 % (based on docume nted legal sex) 37.4-4 8.3 Not Available [facility] (Lab) [address] [place], [address], 08/23/2020 08:15:44 08/23/19 21 08/22/2020 CBC w/ auto diff MCV 84.0 fL 82.0-9 9.0 Not Available [facility] (Lab) [address] [place], [address], 08/23/2020 08:15:44 08/23/1908/22/2020 CBC w/ auto diff MCH 23.0 pg 27.0-3 3.0 low Not Available [facility] (Lab) [address] [place], [address], 08/23/2020 08:15:44 08/23/19 21 08/22/2020 CBC w/ auto diff MCHC 28.0 g/dL 32.0-3 6.0 low Not Available [facility] (Lab) [address], [place], [address], 08/23/2020 08:15:44 08/23/19 21 08/22/2020 CBC w/ auto diff RDW 17.0 % 11.0-1 5.0 high Not Available [facility] (Lab) [address], [place], [address], 08/23/2020 08:15:44 08/23/19 21 08/22/2020 CBC w/ auto diff plt 497 10'3/ uL 150-45 0 high Not Available [facility] (Lab) [address] [place], [address], 08/23/2020 08:15:44 08/23/19 21 08/22/2020 CBC w/ auto diff MPV 9.8 fL Not Available [facility] (Lab) [address] [place], [address], 08/23/2020 08:15:44 08/23/19 21 08/22/2020 CBC w/ auto diff NRBC's 0.00 % 0 Not Available [facility] (Lab) [address] [place], [address], 08/23/2020 08:15:44 08/23/19 21 08/22/2020 CBC w/ auto diff absolute NRBCs 0.0 10'3/ uL 0 Not Available [facility] (Lab) [address] [place], [address], 08/23/2020 08:15:44 08/23/19 21 08/22/2020 CBC w/ auto diff neutrophils 58.0 % 37.0-7 2.0 Not Available [facility] (Lab) [address] [place], [address], 08/23/2020 08:15:44 08/23/19 21 08/22/2020 CBC w/ auto diff lymphocytes 29.0 % 16.0-4 8.0 Not Available [facility] (Lab) [address] [facility], [place], [address], 08/23/2020 08:15:44 08/23/19 21 08/22/2020 CBC w/ auto diff monocytes 10.0 % 4.0-14 .0 Not Available [facility] (Lab) [address] [place], [address], 08/23/2020 08:15:44 08/23/19 21 08/22/2020 CBC w/ auto diff eosinophils 2.0 % 0.0-9. 0 Not Available [facility] (Lab) [address] [facility], [place], [address], 08/23/2020 08:15:44 08/23/19 21 08/22/2020 CBC w/ auto diff basophils 1.0 % 0.0-2. 0 Not Available [facility] (Lab) [address] [place], [address], 08/23/2020 08:15:44 08/23/19 21 08/22/2020 CBC w/ auto diff immature granulocytes 0.0 % no define d refere nce range Not Available [facility] (Lab) [address] [place], [address], 08/23/2020 08:15:44 08/23/19 21 08/22/2020 CBC w/ auto diff absolute neutrophils 4.2 10'3/ uL 1.1-6. 0 Not Available [facility] (Lab) [address] [place], [address], 08/23/2020 08:15:44 08/23/19 21 08/22/2020 CBC w/ auto diff absolute lymphocytes 2.1 10'3/ uL 0.7-3. 4 Not Available [facility] (Lab) [address] [facility], [place], [address], 08/23/2020 08:15:44 08/23/19 21 08/22/2020 CBC w/ auto diff absolute monocytes 0.7 10'3/ uL 0.3-1. 0 Not Available [facility] (Lab) [address] [place], [address], 08/23/2020 08:15:44 08/23/19 21 08/22/2020 CBC w/ auto diff absolute eosinophils 0.1 10'3/ uL 0.0-0. 6 Not Available [facility] (Lab) [address] [facility], [place], [address], 08/23/2020 08:15:44 08/23/19 21 08/22/2020 CBC w/ auto diff absolute basophils 0.1 10'3/ uL 0.0-0. 1 Not Available [facility] (Lab) [address] [facility], [place], [address], 08/23/2020 08:15:44 08/23/19 21 08/22/2020 CBC w/ auto diff absolute immature granulocytes 0.00 10'3/ uL 0.00-0 .10 021 5:46 AM: P indic ates parti al resul ts on a panel have been relea sed. Addit ional resul ts will follo w. 5:46 AM: This resul t has been final verif ied. No addit ional or rosa ed resul ts are expec brianna. Not Available [facility] (Lab) [address] [facility], [place], [address], 08/23/2020 08:15:44 08/23/19 21 08/22/2020 uric acid, serum or plasm a uric acid 4.4 mg/dL (based on docume nted legal sex) 2.4-5. 7 Not Available [facility] (Lab) [address] [facility], [place], [address], 08/23/2020 08:15:45 08/23/19 21 08/22/2020 CMP, serum or plasm a sodium 140 mmol/ L 136-14 5 Not Available [facility] (Lab) [address] [place], [address], 08/23/2020 08:15:45 08/23/19 21 08/22/2020 CMP, serum or plasm a potassium 3.9 mmol/ L 3.5-5. 3 Not Available [facility] (Lab) [address] [place], [address], 08/23/2020 08:15:45 08/23/19 21 08/22/2020 CMP, serum or plasm a chloride 100 mmol/ L 98-107 Not Available [facility] (Lab) [address] [place], [address], 08/23/2020 08:15:45 08/23/19 21 08/22/2020 CMP, serum or plasm a carbon dioxide 24 mmol/ L 23-31 Not Available [facility] (Lab) [address] [facility], [place], [address], 08/23/2020 08:15:45 08/23/19 21 08/22/2020 CMP, serum or plasm a anion gap 16 mmol/ L 8-16 Not Available [facility] (Lab) [address] [place], [address], 08/23/2020 08:15:45 08/23/19 21 08/22/2020 CMP, serum or plasm a blood urea nitrogen 11 mg/dL (based on legal sex) 6-20 Not Available [facility] (Lab) [address] [place], [address], 08/23/2020 08:15:45 08/23/19 21 08/22/2020 CMP, serum or plasm a creatinine 0.80 mg/dL (based on legal sex) .5-1.2 Not Available [facility] (Lab) [address] [place], [address], 08/23/2020 08:15:45 08/23/19 21 08/22/2020 CMP, serum or plasm a GFR () 104 mL/mi n/1.7 3_m2 60-300 Not Available [facility] (Lab) [address] [place], [address], 08/23/2020 08:15:45 08/23/19 21 08/22/2020 CMP, serum or plasm a GFR (others) 86 mL/mi n/1.7 3_m2 60-300 Not Available [facility] (Lab) [address] [place], [address], 08/23/2020 08:15:45 08/23/19 21 08/22/2020 CMP, serum or plasm a calcium 9.7 mg/dL 8.4-10 .5 Not Available [facility] (Lab) [address] [place], [address], 08/23/2020 08:15:45 08/23/19 21 08/22/2020 CMP, serum or plasm a glucose 82 mg/dL 70-99 Not Available [facility] (Lab) [address] [place], [address], 08/23/2020 08:15:45 08/23/19 21 08/22/2020 CMP, serum or plasm a protein, total 7.4 g/dL 6.0-8. 3 Not Available [facility] (Lab) [address] [place], [address], 08/23/2020 08:15:45 08/23/19 21 08/22/2020 CMP, serum or plasm a albumin 4.1 g/dL 3.5-5. 0 Not Available [facility] (Lab) [address] [place], [address], 08/23/2020 08:15:45 08/23/19 21 08/22/2020 CMP, serum or plasm a ALT 62 units /L 9-43 high Not Available [facility] (Lab) [address] [place], [address], 08/23/2020 08:15:45 08/23/19 21 08/22/2020 CMP, serum or plasm a alkaline phosphatase 157 units /L 35-129 high Not Available [facility] (Lab) [address] [place], [address], 08/23/2020 08:15:45 08/23/19 21 08/22/2020 CMP, serum or plasm a AST 50 units /L (based on docume nted legal sex) 11-32 high Not Available [facility] (Lab) [address] [place], [address], 08/23/2020 08:15:45 08/23/19 21 08/22/2020 CMP, serum or plasm a bilirubin, total 0.2 mg/dL 0.0-1. 0 Not Available [facility] (Lab) [address] [place], [address], 08/23/2020 08:15:45 08/31/19 21 08/30/2020 CBC w/ auto diff WBC 9.3 10'3/ uL 3.6-10 .2 Not Available [facility] (Lab) [address] [place], [address], 08/31/2020 03:40:28 08/31/19 21 08/30/2020 CBC w/ auto diff RBC 4.70 10'6/ uL (based on docume nted legal sex) 4.10-5 .30 Not Available [facility] (Lab) [address] [place], [address], 08/31/2020 03:40:28 08/31/19 21 08/30/2020 CBC w/ auto diff HGB 11.1 g/dL (based on docume nted legal sex) 11.9-1 5.8 low Not Available [facility] (Lab) [address] [place], [address], 08/31/2020 03:40:28 08/31/19 21 08/30/2020 CBC w/ auto diff HCT 37.7 % (based on docume nted legal sex) 37.4-4 8.3 Not Available [facility] (Lab) [address] [facility], [place], [address], 08/31/2020 03:40:28 08/31/19 21 08/30/2020 CBC w/ auto diff MCV 80.0 fL 82.0-9 9.0 low Not Available [facility] (Lab) [address] [facility], [place], [address], 08/31/2020 03:40:28 08/31/19 21 08/30/2020 CBC w/ auto diff MCH 24.0 pg 27.0-3 3.0 low Not Available [facility] (Lab) [address] [facility], [place], [address], 08/31/2020 03:40:28 08/31/19 21 08/30/2020 CBC w/ auto diff MCHC 29.0 g/dL 32.0-3 6.0 low Not Available [facility] (Lab) [address] [facility], [place], [address], 08/31/2020 03:40:28 08/31/19 21 08/30/2020 CBC w/ auto diff RDW 16.0 % 11.0-1 5.0 high Not Available [facility] (Lab) [address] [facility], [place], [address], 08/31/2020 03:40:28 08/31/19 21 08/30/2020 CBC w/ auto diff plt 541 10'3/ uL 150-45 0 high Not Available [facility] (Lab) [address] [facility], [place], [address], 08/31/2020 03:40:28 08/31/19 21 08/30/2020 CBC w/ auto diff MPV 9.7 fL Not Available [facility] (Lab) [address] [facility], [place], [address], 08/31/2020 03:40:28 08/31/19 21 08/30/2020 CBC w/ auto diff NRBC's 0.00 % 0 Not Available [facility] (Lab) [address] [facility], [place], [address], 08/31/2020 03:40:28 08/31/19 21 08/30/2020 CBC w/ auto diff absolute NRBCs 0.0 10'3/ uL 0 Not Available [facility] (Lab) [address] [facility], [place], [address], 08/31/2020 03:40:28 08/31/19 21 08/30/2020 CBC w/ auto diff neutrophils 64.0 % 37.0-7 2.0 Not Available [facility] (Lab) [address] [facility], [place], [address], 08/31/2020 03:40:28 08/31/19 21 08/30/2020 CBC w/ auto diff lymphocytes 25.0 % 16.0-4 8.0 Not Available [facility] (Lab) [address] [facility], [place], [address], 08/31/2020 03:40:28 08/31/19 21 08/30/2020 CBC w/ auto diff monocytes 8.0 % 4.0-14 .0 Not Available [facility] (Lab) [address] [facility], [place], [address], 08/31/2020 03:40:28 08/31/19 21 08/30/2020 CBC w/ auto diff eosinophils 2.0 % 0.0-9. 0 Not Available [facility] (Lab) [address] [place], [address], 08/31/2020 03:40:28 08/31/19 21 08/30/2020 CBC w/ auto diff basophils 1.0 % 0.0-2. 0 Not Available [facility] (Lab) [address] [place], [address], 08/31/2020 03:40:28 08/31/19 21 08/30/2020 CBC w/ auto diff immature granulocytes 0.0 % no define d refere nce range Not Available [facility] (Lab) [address] [place], [address], 08/31/2020 03:40:28 08/31/19 21 08/30/2020 CBC w/ auto diff absolute neutrophils 6.0 10'3/ uL 1.1-6. 0 Not Available [facility] (Lab) [address] [facility], [place], [address], 08/31/2020 03:40:28 08/31/19 21 08/30/2020 CBC w/ auto diff absolute lymphocytes 2.3 10'3/ uL 0.7-3. 4 Not Available [facility] (Lab) [address] [place], [address], 08/31/2020 03:40:28 08/31/19 21 08/30/2020 CBC w/ auto diff absolute monocytes 0.8 10'3/ uL 0.3-1. 0 Not Available [facility] (Lab) [address] [place], [address], 08/31/2020 03:40:28 08/31/19 21 08/30/2020 CBC w/ auto diff absolute eosinophils 0.2 10'3/ uL 0.0-0. 6 Not Available [facility] (Lab) [address] [place], [address], 08/31/2020 03:40:28 08/31/19 21 08/30/2020 CBC w/ auto diff absolute basophils 0.1 10'3/ uL 0.0-0. 1 Not Available [facility] (Lab) [address] [place], [address], 08/31/2020 03:40:28 08/31/19 21 08/30/2020 CBC w/ auto diff absolute immature granulocytes 0.00 10'3/ uL 0.00-0 .10 2020 12:57 AM: P indic ates parti al resul ts on a panel have been relea sed. Addit ional resul ts will follo w. 2020 12:57 AM: This resul t has been final verif ied. No addit ional or rosa ed resul ts are expec brianna. Not Available [facility] (Lab) [address] [facility], [place], [address], 08/31/2020 03:40:28 08/31/19 21 08/30/2020 uric acid, serum or plasm a uric acid 4.4 mg/dL (based on docume nted legal sex) 2.4-5. 7 Not Available [facility] (Lab) [address] [place], [address], 08/31/2020 03:40:29 08/31/19 21 08/30/2020 CMP, serum or plasm a sodium 137 mmol/ L 136-14 5 Not Available [facility] (Lab) [address] [place], [address], 08/31/2020 03:40:30 08/31/19 21 08/30/2020 CMP, serum or plasm a potassium 4.2 mmol/ L 3.5-5. 3 Not Available [facility] (Lab) [address] [place], [address], 08/31/2020 03:40:30 08/31/19 21 08/30/2020 CMP, serum or plasm a chloride 97 mmol/ L 98-107 low Not Available [facility] (Lab) [address] [place], [address], 08/31/2020 03:40:30 08/31/19 21 08/30/2020 CMP, serum or plasm a carbon dioxide 24 mmol/ L 23-31 Not Available [facility] (Lab) [address] [facility], [place], [address], 08/31/2020 03:40:30 08/31/19 21 08/30/2020 CMP, serum or plasm a anion gap 16 mmol/ L 8-16 Not Available [facility] (Lab) [address] [place], [address], 08/31/2020 03:40:30 08/31/19 21 08/30/2020 CMP, serum or plasm a blood urea nitrogen 11 mg/dL (based on legal sex) 6-20 Not Available [facility] (Lab) [address] [facility], [place], [address], 08/31/2020 03:40:30 08/31/19 21 08/30/2020 CMP, serum or plasm a creatinine 0.60 mg/dL (based on legal sex) .5-1.2 Not Available [facility] (Lab) [address] [place], [address], 08/31/2020 03:40:30 08/31/19 21 08/30/2020 CMP, serum or plasm a GFR () 144 mL/mi n/1.7 3_m2 60-300 Not Available [facility] (Lab) [address] [place], [address], 08/31/2020 03:40:30 08/31/19 21 08/30/2020 CMP, serum or plasm a GFR (others) 119 mL/mi n/1.7 3_m2 60-300 Not Available [facility] (Lab) [address] [place], [address], 08/31/2020 03:40:30 08/31/19 21 08/30/2020 CMP, serum or plasm a calcium 9.9 mg/dL 8.4-10 .5 Not Available [facility] (Lab) [address] [place], [address], 08/31/2020 03:40:30 08/31/19 21 08/30/2020 CMP, serum or plasm a glucose 60 mg/dL 70-99 low Not Available [facility] (Lab) [address] [place], [address], 08/31/2020 03:40:30 08/31/19 21 08/30/2020 CMP, serum or plasm a protein, total 7.4 g/dL 6.0-8. 3 Not Available [facility] (Lab) [address] [place], [address], 08/31/2020 03:40:30 08/31/19 21 08/30/2020 CMP, serum or plasm a albumin 4.7 g/dL 3.5-5. 0 Not Available [facility] (Lab) [address] [place], [address], 08/31/2020 03:40:30 08/31/19 21 08/30/2020 CMP, serum or plasm a ALT 80 units /L 9-43 high Not Available [facility] (Lab) [address] [place], [address], 08/31/2020 03:40:30 08/31/19 21 08/30/2020 CMP, serum or plasm a alkaline phosphatase 155 units /L 35-129 high Not Available [facility] (Lab) [address] [place], [address], 08/31/2020 03:40:30 08/31/19 21 08/30/2020 CMP, serum or plasm a AST 60 units /L (based on docume nted legal sex) 11-32 high Not Available [facility] (Lab) [address] [place], [address], 08/31/2020 03:40:30 08/31/19 21 08/30/2020 CMP, serum or plasm a bilirubin, total 0.2 mg/dL 0.0-1. 0 Not Available [facility] (Lab) [address] [place], [address], 08/31/2020 03:40:30 Result Notes None recorded. Problems Name Problem SNOMED Code Status Onset Date Resolution Date Notes Provider Name and Address Organization Details Recorded Time Pregnanc y 87374412 Completed 201908/03/2020 Shakila Bohjoannensbimal ehl null, [facility] 14:24:57 Spasm of back muscles 092431565 Completed flexeril Shakila Bohnensti ehl null, [facility] 14:24:52 Fatigue 88146093 Completed Shakila Bohnensti ehl [facility], [facility] 14:24:52 Past pregnanc y history of gestatio nal hyperten ten [id number] Completed asa [place] Loree ehl [facility], [facility] 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 So urce: EHR Chron ic: N Practic e ID: [id number] Bill able Time: 01:00:00 PM Celiasuleimangiacomo Kumarle [facility] 14:59:36 Pregnanc y test negative [id number] Completed 201405/11/2020 examinati on or test, negative result;Re corded Elsewhere : No Locati on: [facility] So urce: EHR Chron ic: N Practic e ID: [id number] Bill able Time: 01:15:00 PM Celiasuleimangiacomo ObrienMarina [facility] 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 So urce: EHR Chron ic: N Practic e ID: [id number] Bill able Time: 01:00:00 PM Becky le [facility] 1 14:59:21 Amenorrh ea [id number] Completed 201405/11/2020 Absence of menstruat ion;Recor ded Elsewhere : No Locati on: [facility] So urce: EHR Chron ic: N Practic e ID: [id number] Bill able Time: 01:15:00 PM Becky le [facility] 1 14:59:01 Transien t hyperten ten of pregnanc y - delivere d with postnata l complica tion [id number] Completed 201305/11/2020 Postpartu m transient hypertens ion;Recor ded Elsewhere : No Locati on: [facility] So urce: EHR Chron ic: N Practic e ID: [id number] Bill able Time: 02:45:00 PM Bekcy Gray [facility] 1 14:59:39 Abdomina l pain [id number] Completed 201205/11/2020 Abdominal Pain;Dre rded Elsewhere : No Locati on: [facility] So urce: EHR Chron ic: N Practic e ID: [id number] Bill able Time: 10:30:00 AM Becky le [facility] 14:58:57 Overweig ht [id number] Completed 201305/11/2020 Overweigh t;Recorde d Elsewhere : No Locati on: [facility] So urce: EHR Chron ic: N Practic e ID: [id number] Bill able Time: 01:30:00 PM Becky Gray [facility] 14:59:24 Disorder of breast [id number] Completed 201805/11/2020 Disorder of breast, unspecifi ed;Record ed Elsewhere : No Locati on: [facility] So urce: EHR Chron ic: N Practic e ID: [id number] Bill able Time: 09:30:00 AM Becky le, [facility] 1 14:59:19 Transien t hyperten ten of pregnanc y - not delivere d [id number] Completed 201305/11/2020 Antepartu m transient hypertens ion;Recor ded Elsewhere : No Locati on: [facility] So urce: EHR Chron ic: N Practic e ID: [id number] Bill able Time: 11:30:00 AM Becky le, [facility] 14:59:41 Adult health examinat ion Completed 201305/11/2020 ROUTINE MEDICAL EXAM;Dre rded Elsewhere : No Locati on: [facility] So urce: EHR Chron ic: N Practic e ID: [id number] Bill able Time: 01:30:00 PM Becky le, [facility] 14:59:00 Clinical finding Completed 201805/11/2020 Disorder of pigmentat ion, unspecifi ed;Record ed Elsewhere : No Locati on: [facility] So urce: EHR Chron ic: N Practic e ID: [id number] Bill able Time: 01:00:00 PM Becky le, [facility] 14:59:08 Ultrason ography Completed 201205/11/2020 screening for malformat ion using ultrasoni cs;Record ed Elsewhere : No Locati on: [facility] So urce: EHR Chron ic: N Practic e ID: [id number] Bill able Time: 02:00:00 PM Becky le, [facility] 14:59:43 Antenata l screenin g Completed 201205/11/2020 screening for malformat ion using ultrasoni cs;Record ed Elsewhere : No Locati on: [facility] So urce: EHR Chron ic: N Practic e ID: [id number] Bill able Time: 02:00:00 PM Becky le, [facility] 1 14:59:03 Congenit al malforma tion [id number] Completed 201205/11/2020 screening for malformat ion using ultrasoni cs;Record ed Elsewhere : No Locati on: [facility] So urce: EHR Chron ic: N Practic e ID: [id number] Bill able Time: 02:00:00 PM Becky le, [facility] 14:59:12 Obesity [id number] Completed 201305/11/2020 Obesity;R ecorded Elsewhere : No Locati on: [facility] So urce: EHR Chron ic: N Practic e ID: [id number] Bill able Time: 01:00:00 PM Becky Gray [facility] 14:59:23 Postpart um care Completed 201305/11/2020 Post Followup; Recorded Elsewhere : No Locati on: [facility] So urce: EHR Chron ic: N Practic e ID: [id number] Bill able Time: 02:15:00 PM Becky Gray [facility] 14:59:26 Constipa tion [id number] Completed 201305/11/2020 Constipat ion, unspecifi ed;Record ed Elsewhere : No Locati on: [facility] So urce: EHR Chron ic: N Practic e ID: [id number] Bill able Time: 02:45:00 PM Becky le [facility] 14:59:15 Primigra yamila [id number] Completed 201205/11/2020 Supervisi on of normal first ;Recorded Elsewhere : No Locati on: [facility] So urce: EHR Chron ic: N Practic e ID: [id number] Bill able Time: 10:30:00 AM Becky le, [facility] 14:59:30 Screenin g for malignan t neoplasm of cervix Completed 201305/11/2020 Screening for malignant neoplasms of the cervix;Re corded Elsewhere : No Locati on: [facility] [facility]: EHR Chron ic: N Practic e ID: 0001 Bill able Time: 01:00:00 PM Becky Gray [facility] 14:59:32 Delivery normal [id number] Completed 201305/11/2020 Normal delivery; Practice ID: [id number] Becky Gray [facility] 14:59:17 Single live [id number] Completed 201305/11/2020 Mother with single liveborn; Practice ID: [id number] Becky Gray [facility] 14:59:35 Benign neoplasm of skin of trunk 81146934 Completed 201805/11/2020 Other benign neoplasm of skin of trunk;Pra ctice ID: 0001 Becky Marina [facility] 14:59:05 Clinical finding Completed 201805/11/2020 Other specified disorders of breast;Pr actice ID: 0001 Becky Gray [facility] 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 treated and + HSV 2- tx Valtrex per SB and aware prophylac tic Valtrex to follow initial tx. Shakila le [facility] 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 1 13:03:53 Problem Notes None recorded. Procedures Surgical History Date Name Laterality Status Provider Name and Address Organization Details Recorded Time 1 TUBAL LIGATION (SURG) completed Aranza Balderrama [facility] 09/25/2020 10:21:59 0 Date of Last Mammogram completed Moon Junior [facility] 06/26/2020 11:50:02 4 Date of Last Pap Smear completed Heena Mejia [facility] 12/31/2019 15:51:33 Imaging Results None recorded. Procedure Notes None recorded. Medical Equipment None Reported. Allergies No known drug allergies Medications Name Sig Start Date Stop Date Status Note LastModified by Organization Details LastModified Time ibuprofen 800 mg tablet 01/03 completed Not Available Not Available Not Available valacyclo vir 1 gram tablet TAKE 1 TABLET BY MOUTH THREE TIMES DAILY active Not Available Not Available No t Available Loestrin Fe 05/10 (28-Day) 1 mg-20 mcg (21)/75 mg (7) tablet take 1 tablet by oral route every day 07/15 completed Prescrib jozef Mixonher e: No Locat ion: [facility] M odify By: [email or web address] Encount er DateTime : 03/31/20 14 09:34:32 AM Not Available Not Available Not Available hydrocodo ne 5 mg-acetam inophen 325 mg tablet TAKE 1 OR 2 TABLETS BY MOUTH EVERY 4 HOURS NEEDED FOR PAIN 05/30 completed Not Available Not Available Not Available prednison e 20 mg tablet TAKE 2 TABLETS BY MOUTH EVERY DAY FOR 5 DAYS active Not Available Not Available No t Available sertralin e 100 mg tablet TAKE 1 TABLET BY MOUTH EVERY DAY 2023 active Not Available Not Available Not Avai lable penicilli n V potassium 500 mg tablet TAKE 1 TABLET BY MOUTH TWICE A DAY 05/30 completed Not Available Not Available Not Available metronida zole 500 mg tablet Take 1 tablet every 12 hours by oral route. 03/20 completed Not Available Not Available Not Available valacyclo vir 500 mg tablet TAKE 1 TABLET BY MOUTH EVERY DAY 08/09 completed Not Available Not Available Not Available tramadol 50 mg tablet TAKE 1/2 TABLET BY MOUTH EVERY 8 HOURS NEEDED active Not Available Not Available No t Available acyclovir 800 mg tablet TAKE 1 TABLET BY MOUTH 5 TIMES DAILY FOR 10 DAYS active Not Available Not Available No t Available alprazola m 0.5 mg tablet TAKE 1 TABLET BY MOUTH THREE TIMES A DAY active Not Available Not Available No t Available cephalexi n 500 mg capsule TAKE 1 CAPSULE BY MOUTH 2 TIMES DAILY UNTIL GONE 05/15 completed Not Available Not Available Not Available Tylenol 325 mg tablet take 1 tablet by oral route every 4 hours as needed 01/04 completed Prescrib ed Elsewher e: Yes Loca tion: [facility] odify By: jill conrad DateTime : 07/06/19 14 03:30:00 PM Not Available Not Available Not Available Vitamin D2 1,250 mcg (50,000 unit) capsule take 1 capsule (18691UY ITS) by oral route every week 07/05 completed Prescrib ed Elsewher e: No Locat ion: [facility] odify By: jill conrad DateTime : 04/15/20 13 09:38:27 AM Not Available Not Available Not Available sertralin e 50 mg tablet TAKE 1 TABLET BY MOUTH EVERY DAY active Not Available Not Available No t Available dicyclomi ne 10 mg capsule TAKE 1 CAPSULE BY MOUTH FOUR TIMES A DAY 05/30 completed Not Available Not Available Not Available amoxicill in 875 mg-potass ium clavulana te 125 mg tablet TAKE 1 TABLET BY MOUTH TWICE A DAY 05/30 completed Not Available Not Available Not Available Colace 50 mg capsule take 1 capsule by oral route every day at bedtime as needed 01/04 completed Prescrib ed Elsewher e: Yes Loca tion: [facility] odify By: jill conrad DateTime : 07/06/19 14 03:30:00 PM Not Available Not Available Not Available cyclobenz aprine 5 mg tablet TAKE 1 TABLET BY MOUTH EVERY 8 HOURS active Not Available Not Available No t Available nitrofura ntoin monohydra te/macroc rystals 100 mg capsule TAKE 1 CAPSULE BY MOUTH EVERY 12 HOURS WITH FOOD, DIRECTED 07/10 completed Not Available Not Available Not Available Boostrix Tdap 2.5 Lf unit-8 mcg-5 Lf/0.5 mL intramusc ular syringe 05/29 completed Not Available Not Available Not Available iron 08/03 completed Not Available Not Available Not Available Vitamin D 08/03 completed Not Available Not Available Not Available 08/03 completed Not Available Not Available Not Available Valtrex 05/30 completed Not Available Not Available Not Available Lo Loestrin Fe 1 mg-10 mcg (24)/10 mcg (2) tablet take 1 tablet by oral route every day 01/04 completed Prescrib ed Elsewher e: No Locat ion: [facility] odify By: ada conrad DateTime : 01/05/20 14 01:00:00 PM Not Available Not Available Not Available Giovani-Evens uo DHA 29 mg-1 mg-400 mg oral pack take 2 by Oral route every day for 30 days 01/07 completed Prescrib ed Elsewher e: No Locat ion: [facility] M odify By: ada conrad DateTime : 12/10/19 13 10:45:00 AM Not Available Not Available Not Available lidocaine 5 % topical ointment 01/03 completed Not Available Not Available Not Available Vitals Date Recorded Body height Body mass index (BMI) Body weight Systolic blood pressure Diastolic blood pressure Systolic blood pressure Diastolic blood pressure Systolic blood pressure Diastolic blood pressure Provider Name and Address Organization Details Last Updated DateTime 1 152.4 cm 32.8 kg/m2 40642.5 2 g 144 mm[Hg] 104 mm[Hg] 146 mm[Hg] 100 mm[Hg] 140 mm[Hg] 100 mm[Hg] Moon Junior [facility] 1 16:35:58 Date Recorded Body height Body mass index (BMI) Body weight Systolic blood pressure Diastolic blood pressure Provider Name and Address Organization Details Last Updated DateTime 05/30/2022 152.4 cm 35.9 kg/m2 76555 g 150 mm[Hg] 87 mm[Hg] Moon Junior [facility] 3 12:04:31 Date Recorded Body height Body mass index (BMI) Body weight Systolic blood pressure Diastolic blood pressure Provider Name and Address Organization Details Last Updated DateTime 06/27/2022 152.4 cm 35.9 kg/m2 74061 g 146 mm[Hg] 88 mm[Hg] Moon [facility] 3 10:34:34 Date Recorded Body height Body mass index (BMI) Body weight Systolic blood pressure Diastolic blood pressure Provider Name and Address Organization Details Last Updated DateTime 12/02/2022 152.4 cm 36.5 kg/m2 92467.77 g 142 mm[Hg] 86 mm[Hg] Moon [facility] 3 12:36:33 Social History Question Answer Notes LastModified by Organizat ion Details LastModified Time Tobacco Smoking Status Never Smoker Moon Junior [facility] 06/26/2020 11:50:07 Do You Have An Advance Directive? No Information not available 06/26/2020 What Is Your Level Of Alcohol Consumption? None Information not available 01/04/2020 If You Are , What Was Your Level Of Alcohol Consumption Prior To ? Occasional Information not available 06/26/2020 Are You Blind Or Do You Have Difficulty Seeing? No Information not available 06/26/2020 What Is Your Level Of Caffeine Consumption? Occasional Information not available 06/26/2020 How Much Tobacco Do You Chew? None Information not available 06/26/2020 In The 14 Days Before Symptom Onset, Have You Had Close Contact With A Laboratory-confir med COVID-19 While That Case Was Ill? No Information not available 06/26/2020 In The 14 Days Before Symptom Onset, Have You Had Close Contact With A Person Who Is Under Investigation For COVID-19 While That Person Was Ill? No Information not available 06/26/2020 Have You Been To An Area Known To Be High Risk For COVID-19? No Information not available 06/26/2020 Are You Deaf Or Do You Have Serious Difficulty Hearing? No Information not available 06/26/2020 What Type Of Diet Are You Following? REGULAR Information not available 06/26/2020 What Is The Highest Grade Or Level Of School You Have Completed Or The Highest Degree You Have Received? [id number] Information not available 06/26/2020 What Is Your Occupation? [employer] Information not available 06/26/2020 How Many Days Of Moderate To Strenuous Exercise, Like A Brisk Walk, Did You Do In The Last 7 Days? 5 Alot Of Walking At Work Information not available 06/26/2020 Are There Any Guns Present In Your Home? No Information not available 06/26/2020 What Was The Date Of Your Most Recent Tobacco Screening? 08/22/2020 [email or web address] Information not available 08/22/2020 Do You Use Protection During Sex? No Information not available 06/26/2020 Do You Use Your Seat Belt Or Car Seat Routinely? Yes Information not available 06/26/2020 Do You Have Smoke And Carbon Monoxide Detectors In Your Home? Yes Information not available 06/26/2020 Do You Or Have You Ever Used Smokeless Tobacco? Never Used Smokeless Tobacco Information not available 06/26/2020 How Much Tobacco Do You Smoke? No [email or web address] Information not available 03/20/2020 Do You Feel Stressed (tense, Restless, Nervous, Or Anxious, Or Unable To Sleep At Night)? [id number] Information not available 06/26/2020 Do You Use Any Illicit Or Recreational Drugs? No Information not available 05/23/2020 Do You Use Sunscreen Routinely? Yes Information not available 06/26/2020 Has Tobacco Cessation Counseling Been Provided? No Information not available 06/26/2020 Have You Used IV Drugs? No Information not available 06/26/2020 Do You Or Have You Ever Used Any Other Forms Of Tobacco Or Nicotine? No Information not available 06/26/2020 Sex: Unknown Functional Status Question Answer Note LastModified by Organizat ion Details LastModified Time Are you able to walk? [email or web address] Information not available 06/26/2020 What is your exercise level? Occasional Information not available 01/04/2020 Mental Status None recorded. Family History Relationship Description Onset Age of this Age Resolved Age Notes LastModified by Organization Details LastModified Time Mother Family history of breast cancer phewitt Not available 2020 11:40:56 Father Diabetes mellitus [email or web address] Not available 2019 15:54:03 Paternal Grandfather Diabetes mellitus [email or web address] Not available 2019 15:54:03 Maternal Aunt Family history of breast cancer phewitt Not available 2020 11:40:56 Medical History Condition Response Allergies (Food, seasonal, environmental ) N Other N Breast Cancer N Drug/Latex Allergies/Reactions N Blood Transfusion N Dermatologic Disorders N Lung Disease N Defects or Inherited Disease N Breast Problem N Gestational Diabetes N Hematologic disorders N Anesthesia Complications N History of STI Y Deep Vein Thrombosis N Polycystic ovary syndrome N Anxiety Disorder N Autoimmune disease N Arthritis N Infertility N Polyps N Acid Reflux (GERD) N History of abnormal pap N Cancer N Stroke N Varicosities N Neurologic/Epilepsy N Endometriosis N High Cholesterol N Headaches N Fibromyalgia N Kidney Disease N Heart Problems N Kidney or Bladder Problems N Thyroid Problems N GI Problems N Eating Disorder N Anemia N Art (IVF or FET) N Psychiatric Illness N Ovarian Cancer N Diabetes N Pulmonary (TB, Asthma) N Hepatitis/Liver Disease N Eczema N Urinary Tract Infection N Abuse/Domestic Violence N Asthma N Trauma/Violence N Depression/ depression Y Heart Disease N Pre-Eclampsia N Hypertension N Osteoporosis N Thrombophilias N Gynecological History Statement/Question Response Date of Last Mammogram 03/29/2020 On BCP's at Conception? N N Was last menstrual period normal Y STIs/STDs Yes HPV Vaccine N Duration of Flow (days) 7 Current Control Method Tubal Ligat ion Age at First Child 22 Frequency of Cycle (Q days) 30 Sexually Active? Y Age of first menstrual cycle 14 Date of Last Pap Smear 01/04/2014 Sexual Problems? N Desired Control Method LMP Unknown N Obstetrics History GPAL:G 3 P 2 0 1 2 Type Value Full Term 2 Spontaneous 1 Living 2 Total 3 Past Encounters Encounter ID Performer Location Encounter Start Date Encounter Closed Date Diagnosis/Indication Diagnosis SNOMED-CT Code Diagnosis ICD10 Code Diagnosis Note [id number] [facility] [address],[place] [address] 01/04/2020 16:07:26 01/05/2020 11:36:57 [id number] Daisy Puentes [place] [address],[place] [address] 01/04/2020 16:08:07 01/05/2020 14:57:04 test positive 078034608 Z32.01 Risk factors addressed: Tobacco Cessation, Safe Sexual Practices, environmen [place], work hazards, travel restrictio ns, seat belt use.Eat a health well balanced diet, avoid alcohol, tobacco, and street drugs. Engage in daily low impact exercise, avoid temperatur e extremes, and cat, rodent, and bird feces.Avoi d travel to areas where zika virus is a concern.Fi rst look offered to patient. First look accepted by patient and will be scheduled. Sequential Screen handout given and discussed with patient. ildbirth classes recommende d.New OB sheet given. Pt refused pap today. Would be willing to do at 12 or 16 week visit. If previous , counseling .Pt verbalizes that she understand s the importance of above instructio ns.All questions were answered. Patient reminded to have annual well woman examinatio n and address [facility] . [id number] [facility] [address],[place] [address] 01/24/2020 15:51:08 01/24/2020 16:48:20 screening 374170225 Z36.82 Z36.0 Z36.89 [id number] Sourav Cary MD [place] [address],[place] [address] 01/24/2020 15:51:54 01/24/2020 17:15:25 Spasm of back muscles 670632847 M62.830 Routine an tenatal care 675676369 Z34.81 [id number] [facility] [address],[place] [address] 02/21/2020 09:20:55 02/22/2020 08:31:37 [id number] [facility] [address],[place] [address] 02/21/2020 09:21:42 02/21/2020 10:29:46 Routine care 905833214 Z34.92 [id number] [facility] [address],[place] [address] 03/20/2020 14:05:51 03/20/2020 17:44:30 screening for malformation 649976184 Z36.3 [id number] [facility] [address],[place] [address] 03/20/2020 14:07:19 03/20/2020 17:43:44 Routine care 750376520 Z34.92 [id number] [facility] [address],[place] [address] 04/17/2020 10:44:24 04/17/2020 11:55:55 Routine care 246545700 Z34.92 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 73457580 Z31.430 [id number] [facility] [address],[place] [address] 04/17/2020 10:44:59 04/17/2020 11:41:53 condition affecting obstetrical care of mother 277471175 O35.8XX0 Z3A.23 [id number] Ramya Bates MD [place] [address],[place] [address] 05/15/2020 10:11:27 05/15/2020 10:47:36 Routine care 872432479 Z34.82 [id number] Sourav Cary MD [place] [address],[place] [address] 05/23/2020 14:40:37 05/24/2020 11:04:42 Herpes simplex 86052703 B00.9 [id number] [facility] [address],[place] [address] 05/29/2020 11:42:24 05/30/2020 10:21:28 Routine care 959627732 Z34.92 Additional precaution demond measures were taken to minimize potential exposure to the Covid-19 virus during this patient? s visit, including available hand lbd teacher upon arrive, temperatur e check and being asked a series of screening questions. All staff wore face coverings during this encounter, as well as provided additional cleaning and sanitizing of all surfaces, including countertop s, pens, chairs, door handles, light switches, etc, prior to and following the patient? s visit. [id number] Daisy Puentes [place] [address],[place] [address] 06/12/2020 11:37:41 06/12/2020 12:38:12 Routine care 166382255 Z34.92 Additional precaution demond measures were taken to minimize potential exposure to the Covid-19 virus during this patient? s visit, including available hand lbd teacher upon arrive, temperatur e check and being asked a series of screening questions. All staff wore face coverings during this encounter, as well as provided additional cleaning and sanitizing of all surfaces, including countertop s, pens, chairs, door handles, light switches, etc, prior to and following the patient? s visit. [id number] Sourav Cary MD [place] [address],[place] [address] 06/26/2020 11:40:52 06/26/2020 12:06:29 Urinary tract infectious disease 68407580 N39.0 Herpes simplex 60731705 B00.9 [id number] Sourav Cary MD [place] [address],[place] [address] 07/10/2020 10:00:26 07/10/2020 10:56:43 Routine care 934259348 Z34.81 [id number] Sourav Cary MD [place] [address],[place] [address] 07/17/2020 09:32:19 07/17/2020 10:39:59 Routine care 840865660 Z34.81 [id number] Sourav Cary MD [place] [address],[place] [address] 07/24/2020 10:13:56 07/24/2020 10:46:42 Routine care 204740994 Z34.81 [id number] [facility] [address],[place] [address] 08/03/2020 14:11:48 08/03/2020 14:52:48 -induced hypertension 0158638075 9100 O13.9 BP still high but not in treatable range. No symptoms. Pt feeling great. PIH precaution s given. Return in 1 week for bp check or sooner if any problems/c oncerns. [id number] [facility] [address],[place] [address] 08/09/2020 11:09:30 08/09/2020 11:57:23 -induced hypertension 3483760514 9100 O13.9 BP improving. PIH precaution s given. Return in 1 week for bp check or sooner if any problems/c oncerns. [id number] [facility] [address],[place] [address] 08/14/2020 09:27:12 08/14/2020 10:04:20 -induced hypertension 0131528108 9100 O13.9 BP stable. PIH precaution s given. Return in 1 week for bp check or sooner if any problems/c oncerns. 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 At this point no medication . [id number] Kari Jefferson CNM [place] [address],[place] [address] 08/22/2020 11:54:03 08/22/2020 14:30:45 care 686661884 Z39.2 - induced hypertension 81079150 O13.9 [id number] [facility] [address],[place] [address] 08/30/2020 12:50:37 08/30/2020 13:19:26 state 81718673 Z39.2 Continue to watch for signs/symp toms of post depression . Return one year from last pap smear for a well woman exam. EPDS 10. Pt feels she is doing well overall but just a little more stressed. Discussed all options. Pt would like to repeat EPDS in 2 weeks. Will have OB call her. If any worsening of symptoms before that she will call us. Planning tubal ligation. Patient received above instructio ns, and questions have been answered. If you have any questions please call or respond to this email. Patient was made aware of the patient portal and may obtain a paper copy of today's plan if desired -induced hypertension [id number] 9100 O13.9 - induced hypertension 19605823 O13.9 BP improved. Denies h/a, v/d, or e/p. [id number] Sourav Cary MD [place] [address],[place] [address] 09/14/2020 14:52:53 09/14/2020 16:07:43 Contraception care management 017426062 Z30.9 this patient is a 30-year-ol d female with unwanted fertility who presents for preoperati ve care. We have agreed to perform laparoscop ic bilateral tubal ligation. She understand s the risks, benefits, and alternativ es. She has completed the informed consent process and ready to proceed. [id number] Sourav Cary MD [place] [address],[place] [address] 09/25/2020 09:30:07 09/25/2020 09:32:48 [id number] Sourav Cary MD [place] [address],[place] [address] 09/29/2020 15:57:44 09/29/2020 16:48:56 Mixed anxiety and depressive disorder 584669476 F41.8 This patient is a 30-year-ol d multiparou s female who presents for follow-up on antidepres [place] medication s start. She was suffering from some depression . We started Zoloft. She is doing remarkably well. Her E PDS screening score is very low. She states she feels great. Her baby is doing well. She does have elevated blood pressures today we going to get her in with Dr. Thorpe urgently. She will return here in 2 months for follow-up on depression . [id number] Sourav Cary MD [place] [address],[place] [address] 05/30/2022 11:35:31 05/30/2022 12:41:41 Mixed anxiety and depressive disorder 171439427 F41.8 this patient is a 31-year-ol d female with severe anxiety depression . She of very close friend. It was a traumatic catheteriz ation. Was a painful from cancer. Patient was with her at some very difficult times. She has had some episodes of anxiety in the past. She was treated with sertraline and responded well. We spent over 20 minutes face-to-fa ce. More than 50% was counseling . We agreed to treat with sertraline and some p.r.n. Xanax. She will follow-up in 3 weeks. She is going to be out of work for 3 weeks as well. [id number] Sourav Cary MD [place] [address],[place] [address] 06/27/2022 10:12:06 06/27/2022 11:13:13 Mixed anxiety and depressive disorder 467448190 F41.8 this patient is a 31-year-ol d female who presents for follow-up on depression anxiety. She was treated with sertraline Xanax. She has much better EPDF score today. We discussed side effects. Side effects very tolerable for her. She would like to continue on current medication s. We agreed to follow-up in 3 months [id number] Sourav Cary MD [place] [address],[place] [address] 12/02/2022 12:23:58 12/02/2022 14:45:46 Mixed anxiety and depressive disorder 493005737 F41.8 32-year-ol d female presents for follow-up on anxiety depression . She has worsening symptoms. Initially with starting medication s she had improvemen t. Over the last few weeks she has noticed diminished response to the medication . Talked about options. We agreed to increase sertraline to 100 mg daily. She will also be prescribed 25 more Xanax. She is taking this sparingly. She uses less than 25/3 months. She is moderately complex and would likely be better served with a psychiatry consultati on. We spent over 20 minutes face-to-fa ce. More than 50% was counseling . Health Concerns Section Related Observation LastModified by Organization Detai ls LastModified Time None Recorded Concern Status LastModified by Organization Details LastModified Time None Recorded Advance Directives Directive N: Payers Encounter Date Sequence Insurance Name Policy Number Policy Ca Covered Member ID Ca Member ID Guarantor Name 09/22/2020 1 [facility] [id number] Felix Choi [id number] Sabrina Florezden 09/29/2020 1 [facility] [id number] Felix Choi [id number] Sabrina Florezden 05/30/2022 1 [facility] Sabrina Florezden [id number] Sabrina Florezden 06/27/2022 1 [facility] Sabrina Florezden [id number] Sabrina Florezden 12/02/2022 1 [facility] Sabrina Florezden [id number] Sabrina Florezden Notes Date Note Type Note Provider Name and Address Organization Details Recorded Time 09/29/2020 text/html This patient is a 30-year-old multiparous female who presents for follow-up on antidepressant medications start. She was suffering from some depression. We started Zoloft. She is doing remarkably well. Her E PDS screening score is very low. She states she feels great. Her baby is doing well. She does have elevated blood pressures today we going to get her in with Dr. Thorpe urgently. She will return here in 2 months for follow-up on depression. Sourav Cary MD [address], [place], [address], [facility] 09/29/2020 16:32:47 05/30/2022 text/html this patient is a 31-year-old female with severe anxiety depression. She of very close friend. It was a traumatic catheterization. Was a painful from cancer. Patient was with her at some very difficult times. She has had some episodes of anxiety in the past. She was treated with sertraline and responded well. We spent over 20 minutes [id number]. More than 50% was counseling. We agreed to treat with sertraline and some p.r.n. Xanax. She will follow-up in 3 weeks. She is going to be out of work for 3 weeks as well. Sourav Cary MD [address], [place], [address], [facility] 05/30/2022 12:35:37 06/27/2022 text/html this patient is a 31-year-old female who presents for follow-up on depression anxiety. She was treated with sertraline Xanax. She has much better EPDF score today. We discussed side effects. Side effects very tolerable for her. She would like to continue on current medications. We agreed to follow-up in 3 months Sourav Cary MD [address], [place], [address], [facility] 06/27/2022 11:09:50 12/02/2022 text/html 32-year-old yessy chandler presents for follow-up on anxiety depression. She has worsening symptoms. Initially with starting medications she had improvement. Over the last few weeks she has noticed diminished response to the medication. Talked about options. We agreed to increase sertraline to 100 mg daily. She will also be prescribed 25 more Xanax. She is taking this sparingly. She uses less than 25/3 months. She is moderately complex and would likely be better served with a psychiatry consultation. We spent over 20 minutes [id number]. More than 50% was counseling. Sourav Cary MD [address], [place], [address], [facility] 12/02/2022 14:40:36 OBGyn Episode Ob Episode Information Episode Created Date Number of Fetuses Patient Bloodtype Patient rh Status Prepregnancy Weight lbs Domestic Partner Domestic Partner Phone Father Name Staffing Rn Status 12/31/19 20 1 CLOSED Fetus Data First Name Last Name Admitted to NICU Weight (g) Sex Living Outcome Pediatric Complications Fetus ID Race Codes Race Delivery Type 3259.96 [id number] F Full Term 4458 Vaginal Delivery Ralph Calculation Initial Ralph Date Initial Exam Date Initial Exam Provider Initial Ultrasound Date Last Menstrual Period Date Ultra Sound Weeks Gestation 0 Eighteen To Twenty Week Ralph Update Ultra Sound Date Fundal Height At Umbil Quickening Date Ultra Sound Latest Weeks Gestation Final Ralph Confirmed By Final Ralph Confirmed Date Final Ralph Date Ultra Sound Latest Days Gestation 0 0 Menstrual History Last Menstrual Date Menses Monthly On Bcp Conception Prior Menses Frequency Hcg Plus Date Menarche Onset Age Delivery Information Delivery Date Delivery Type Labor Anesthesia Weeks Gestation Incision Type Labor Labor Length Hrs Delivered By Post Complications Tubal Sterilization Discharge Date Comments 4 38 [place] GHTN Discharge Information Feeding Method Contraceptive Method Maternal HG B and HCT Levels Ob Episode Information Episode Created Date Number of Fetuses Patient Bloodtype Patient rh Status Prepregnancy Weight lbs Domestic Partner Domestic Partner Phone Father Name Staffing Rn Status 01/24/20 20 1 CLOSED Fetus Data First Name Last Name Admitted to NICU Weight (g) Sex Living Outcome Pediatric Complications Fetus ID Race Codes Race Delivery Type , Spontane ous [id number] Ralph Calculation Initial Ralph Date Initial Exam Date Initial Exam Provider Initial Ultrasound Date Last Menstrual Period Date Ultra Sound Weeks Gestation 0 Eighteen To Twenty Week Ralph Update Ultra Sound Date Fundal Height At Umbil Quickening Date Ultra Sound Latest Weeks Gestation Final Ralph Confirmed By Final Ralph Confirmed Date Final Ralph Date Ultra Sound Latest Days Gestation 0 0 Menstrual History Last Menstrual Date Menses Monthly On Bcp Conception Prior Menses Frequency Hcg Plus Date Menarche Onset Age Delivery Information Delivery Date Delivery Type Labor Anesthesia Weeks Gestation Incision Type Labor Labor Length Hrs Delivered By Post Complications Tubal Sterilization Discharge Date Comments 9 Discharge Information Feeding Method Contraceptive Method Maternal HG B and HCT Levels Ob Episode Information Episode Created Date Number of Fetuses Patient Bloodtype Patient rh Status Prepregnancy Weight lbs Domestic Partner Domestic Partner Phone Father Name Staffing Rn Status 01/24/20 20 1 O Positive 153 CLOSED Fetus Data First Name Last Name Admitted to NICU Weight (g) Sex Living Outcome Pediatric Complications Fetus ID Race Codes Race Delivery Type 2919.99 85 M true Full Term 5059 Vaginal Delivery Problems Problem Notes EIFLV noted Problem Name Start Date End Date Resolution Snomed Code Not e Spasm of back muscles MEDICATION [id number] [id number] flexeril Fatigue [id number] Past history of gestational hypertension MEDICATION [id number] asa Herpes simplex 62471002 2 IgG + - Valtrex btwn [id number] Lesion of vulva [id number] pain ful cluster of vulvar lesions consistent with HSV infection. treated and + HSV 2- tx Valtrex per SB and aware prophylactic Valtrex to follow initial tx. Ralph Calculation Initial Ralph Date Initial Exam Date Initial Exam Provider Initial Ultrasound Date Last Menstrual Period Date Ultra Sound Weeks Gestation 08/08/2020 01/24/2020 01/04/2020 11/02/2019 9 Eighteen To Twenty Week Ralph Update Ultra Sound Date Fundal Height At Umbil Quickening Date Ultra Sound Latest Weeks Gestation Final Ralph Confirmed By Final Ralph Confirmed Date Final Ralph Date Ultra Sound Latest Days Gestation 0 [email or web address] 01/24/2020 08/09/19 21 0 Pre-duane Flowsheet Flowsheet Date 01/04/2020 Corcoran Score Blood Edema Fundus Height Fundus Units Glucose Ketones Leukocytes Nitrite Labor Signs Protein Cervic Dilation Cervic Effacement Cervic Station Type Weight in lbs Pre/Post Dialysis Refused BP Diastolic BP Location Tested BP Systolic BP Type Fetus Heart Rate Present Fetus Movement Comments Flowsheet Date 01/24/2020 Corcoran Score Blood Edema Fundus Height Fundus Units Glucose Ketones Leukocytes Nitrite Labor Signs Protein Cervic Dilation Cervic Effacement Cervic Station 12 Type Weight in lbs Pre/Post Dialysis Refused Weight 159.488453511561 BP Diastolic BP Location Tested BP Systolic BP Type 79 R arm 128 sitting Fetus Heart Rate Present A 168 Fetus Movement Comments this patient is a 29-year-ol d 3 para 1011 at 11 weeks and 6 days gestation who presents for initial care. She reports fatigue. We will look for her laboratory results and see if there is anything narrow that helps. She has back spasm. It is a longstanding problem. We prescribed some Flexeril. She has a history of -induced hypertension. She will hopefully start a baby aspirin. She will begin routine care. Flowsheet Date 02/21/2020 Corcoran Score Blood Edema Fundus Height Fundus Units Glucose Ketones Leukocytes Nitrite Labor Signs Protein Cervic Dilation Cervic Effacement Cervic Station Type Weight in lbs Pre/Post Dialysis Refused BP Diastolic BP Location Tested BP Systolic BP Type Fetus Heart Rate Present Fetus Movement Comments Flowsheet Date 02/21/2020 Corcoran Score Blood Edema Fundus Height Fundus Units Glucose Ketones Leukocytes Nitrite Labor Signs Protein Cervic Dilation Cervic Effacement Cervic Station trace Type Weight in lbs Pre/Post Dialysis Refused Weight 160.432844304277 BP Diastolic BP Location Tested BP Systolic BP Type 79 L arm 120 sitting Fetus Heart Rate Present A 155 Fetus Movement A Yes Comments Pt just finished antibiotics for foot infection. Since has started having increased white discharge with itching. Swab collected. Pt is having a boy. Flowsheet Date 03/20/2020 Corcoran Score Blood Edema Fundus Height Fundus Units Glucose Ketones Leukocytes Nitrite Labor Signs Protein Cervic Dilation Cervic Effacement Cervic Station Type Weight in lbs Pre/Post Dialysis Refused BP Diastolic BP Location Tested BP Systolic BP Type Fetus Heart Rate Present Fetus Movement Comments Flowsheet Date 03/20/2020 Corcoran Score Blood Edema Fundus Height Fundus Units Glucose Ketones Leukocytes Nitrite Labor Signs Protein Cervic Dilation Cervic Effacement Cervic Station neg none trace Type Weight in lbs Pre/Post Dialysis Refused Weight 164.64017809593 BP Diastolic BP Location Tested BP Systolic BP Type 76 126 Fetus Heart Rate Present Fetus Movement A Yes Comments Pt doing well. Baseline geovanni chun done. Will await recommendations. Flowsheet Date 04/17/2020 Corcoran Score Blood Edema Fundus Height Fundus Units Glucose Ketones Leukocytes Nitrite Labor Signs Protein Cervic Dilation Cervic Effacement Cervic Station Type Weight in lbs Pre/Post Dialysis Refused BP Diastolic BP Location Tested BP Systolic BP Type Fetus Heart Rate Present Fetus Movement Comments Flowsheet Date 04/17/2020 Corcoran Score Blood Edema Fundus Height Fundus Units Glucose Ketones Leukocytes Nitrite Labor Signs Protein Cervic Dilation Cervic Effacement Cervic Station neg none 26 trace Type Weight in lbs Pre/Post Dialysis Refused Weight 170.868072416123 BP Diastolic BP Location Tested BP Systolic BP Type 77 133 Fetus Heart Rate Present Fetus Movement A Yes Comments Doing well. Round ligament p ain. Discussed ways to help. Pt had CF drawn with previous . Will have SMA drawn today. Plan 1 hour gtt at next office visit in 3-4 weeks. U/S today. Await recommendations. Flowsheet Date 05/15/2020 Corcoran Score Blood Edema Fundus Height Fundus Units Glucose Ketones Leukocytes Nitrite Labor Signs Protein Cervic Dilation Cervic Effacement Cervic Station neg none 31 trace Type Weight in lbs Pre/Post Dialysis Refused Weight 175.128645599638 BP Diastolic BP Location Tested BP Systolic BP Type 75 116 Fetus Heart Rate Present A 150 Fetus Movement A No Comments Doing ok. Getting maternity belt for back. Also having cramping many evenings, not contractions. Denies vaginal sx, constipation, dehydration. Will check UC. Precautions given. GCT today. Discussed and encouraged Tdap. Did not do second sequentiial- declines NIPT. FU 2 weeks. Flowsheet Date 05/23/2020 Corcoran Score Blood Edema Fundus Height Fundus Units Glucose Ketones Leukocytes Nitrite Labor Signs Protein Cervic Dilation Cervic Effacement Cervic Station 29 Type Weight in lbs Pre/Post Dialysis Refused Weight 175.960373332370 BP Diastolic BP Location Tested BP Systolic BP Type 87 R arm 127 sitting Fetus Heart Rate Present A 145 Fetus Movement Comments this patient is a 2 para 1001 at 29 weeks gestation who presents for painful vulvar lesions. She had is a cluster of white lesions on the vulva. She has surrounding erythema. It is very tender. The appearance is consistent with herpes. She has had these present for several days. She has never had symptoms like this. Her significant other does not report any herpes infection. We agreed to treat. Samples were taken, blood testing will be performed. Will follow-up on those results. She was prescribed Valtrex. Flowsheet Date 05/29/2020 Corcoran Score Blood Edema Fundus Height Fundus Units Glucose Ketones Leukocytes Nitrite Labor Signs Protein Cervic Dilation Cervic Effacement Cervic Station none 30 Type Weight in lbs Pre/Post Dialysis Refused Weight 174.77418779217 BP Diastolic BP Location Tested BP Systolic BP Type 74 115 Fetus Heart Rate Present A 156 Fetus Movement A Yes Comments Doing well. TDAP done. Decli melanie flu shot. Vulvar lesions improved. Still has some discomfort on right side of vulva and her right leg (history of shingles on that side) dx August of last year. Will schedule with [facility]. Flowsheet Date 06/12/2020 Corcoran Score Blood Edema Fundus Height Fundus Units Glucose Ketones Leukocytes Nitrite Labor Signs Protein Cervic Dilation Cervic Effacement Cervic Station none 32 neg Type Weight in lbs Pre/Post Dialysis Refused Weight 176.187388301022 BP Diastolic BP Location Tested BP Systolic BP Type 81 118 Fetus Heart Rate Present A 141 Fetus Movement A Yes Comments Had u/s with mfm today and w ill meet with m on Friday. Shingles resolved. Flowsheet Date 06/26/2020 Corcoran Score Blood Edema Fundus Height Fundus Units Glucose Ketones Leukocytes Nitrite Labor Signs Protein Cervic Dilation Cervic Effacement Cervic Station 33 Type Weight in lbs Pre/Post Dialysis Refused Weight 181.921062997364 BP Diastolic BP Location Tested BP Systolic BP Type 78 R arm 126 sitting Fetus Heart Rate Present A 145 Fetus Movement A Yes Comments Patient appears to have urin demond tract infection. Her urine dip was strongly positive. She was prescribed antibiotics. She was also prescribed Valtrex for prophylactic therapy. She is HSV positive and had a recent outbreak. She will take this through the in the . Flowsheet Date 07/10/2020 [place]coran Score Blood Edema Fundus Height Fundus Units Glucose Ketones Leukocytes Nitrite Labor Signs Protein Cervic Dilation Cervic Effacement Cervic Station 36 trace 1cm 20% -3 Type Weight in lbs Pre/Post Dialysis Refused Weight 187.194419235059 BP Diastolic BP Location Tested BP Systolic BP Type 79 R arm 131 sitting Fetus Heart Rate Present A 145 Fetus Movement A Yes Comments examined an area on the areo la of the patient. Is on the right areola inferiorly. It appears benign. We are to observe. GBS done Flowsheet Date 07/17/2020 Corcoran Score Blood Edema Fundus Height Fundus Units Glucose Ketones Leukocytes Nitrite Labor Signs Protein Cervic Dilation Cervic Effacement Cervic Station neg trace 37 neg 2cm 50% -3 Type Weight in lbs Pre/Post Dialysis Refused Weight 189.689888471685 BP Diastolic BP Location Tested BP Systolic BP Type 86 130 Fetus Heart Rate Present A 130 Fetus Movement A Yes Comments Induction scheduled for Apri l 14, cervix is soft Flowsheet Date 07/24/2020 Corcoran Score Blood Edema Fundus Height Fundus Units Glucose Ketones Leukocytes Nitrite Labor Signs Protein Cervic Dilation Cervic Effacement Cervic Station 37 trace Type Weight in lbs Pre/Post Dialysis Refused Weight 190.263077635322 BP Diastolic BP Location Tested BP Systolic BP Type 100 R arm 162 sitting 102 L arm 161 sitting 110 R arm 150 sitting Fetus Heart Rate Present A 145 Fetus Movement A Yes Comments Severe range pressures, micah ent sent to Labor and delivery. Flowsheet Date 08/03/2020 Corcoran Score Blood Edema Fundus Height Fundus Units Glucose Ketones Leukocytes Nitrite Labor Signs Protein Cervic Dilation Cervic Effacement Cervic Station Type Weight in lbs Pre/Post Dialysis Refused Weight 172.990024805813 BP Diastolic BP Location Tested BP Systolic BP Type 96 153 98 148 Fetus Heart Rate Present Fetus Movement Comments Menstrual History Last Menstrual Date Menses Monthly On Bcp Conception Prior Menses Frequency Hcg Plus Date Menarche Onset Age 0711/02/2019 Genetic Screening And Infection History Question Response Note Mental Retardation/Autism false Patient's Age Will Be 35 Years Or Older At Estim ated Date of Delivery false Thalassemia (Vietnamese, Tajik, Mediterranean, Or Background): MCV < 80 false Neural Tube Defect (Meningomyelocele, Spina Bifi da, Or Anencephaly) false Congenital Heart Defect false Down Syndrome false Cristian-Sachs (eg, Pentecostalism, Cajun, Kinyarwanda-Mosotho) f alse Patrick Disease false Sickle Cell Disease Or Trait () false Hemophilia Or Other Blood Disorders false Muscular Dystrophy false Cystic Fibrosis false Collier's Chorea false Intellectual Disability/Autism false If Yes, Was Person Tested For Fragile X? false Other Inherited Genetic Or Chromosomal Disorder false Maternal Metabolic Disorder (eg, Type 1 Diabetes , PKU) false Patient Or Baby's Father Had A Child With Defects Not Listed Above false Recurrent Loss, Or A Stillbirth false Medications (including Suppl ements, Vitamins, Herbs, OTC Drugs), Illicit/Recreational Drugs, Alcohol false If Yes, Agent(s) And Strength/Dosage false Any Other Genetic History false Live With Someone With TB Or Exposed To TB false Patient Or Partner Has History Of Genital Herpes false Rash Or Viral Illness Since Last Menstrual Perio d false History Of STD, Gonorrhea, Chlamydia, HPV, Syphi lis false Other Infection History false History of HIV false History of Hepatitis false Prior GBS-infected child false Hemoglobinopathy Or Carrier false Other Structural Defect false Recent Travel History Outside of Country false Delivery Information Delivery Date Delivery Type Labor Anesthesia Weeks Gestation Incision Type Labor Labor Length Hrs Delivered By Post Complications Tubal Sterilization Discharge Date Comments 1 Induce d Regional-Ep idural 37.6 false Daisy Peuntes CNM GHTN & Gbs+ Discharge Information Feeding Method Contraceptive Method Maternal HG B and HCT Levels
--- NOTE | 2024-05-18 10:12 | ED_ITS ---
HPI - General Adult General Chief complaint: Neck Pain/Injury Stated complaint: neck pain, pinched nerve Time Seen by Provider: 05/18/24 09:42 History of Present Illness HPI narrative: Sabrina Vásquez is a 33-year-old female who presents today with complaints of having left-sided neck pain this started 3 days ago. She states that she woke up with this pain and felt like she slept on her neck wrong. She has tried to take ibuprofen yesterday for the pain and help some but has continued pain is worse with movement. She denies any trauma, no fall no known injury she denies any fevers headache vision changes. There is no midline cervical spine tenderness noted no rash. Related Data Home Medications ?Medication ?Instructions ?Recorded ?Confirmed ?Last Taken ?Type sertraline 50 mg tablet 50 mg PO DAILY 09/11/20 12/04/20 09/21/20 History Allergies Allergy/AdvReac Type Severity Reaction Status Date / Time No Known Allergies Allergy Verified 05/18/24 09:18 Review of Systems Review of Systems: All systems reviewed & are unremarkable except as noted in HPI and below PMFSH Past Medical History Medical History Anxiety Herpes Shingles Obesity Surgical History Surgical History History of tubal ligation Family History Family History Father Diabetes mellitus Mother Breast cancer Social History Social History Smoking status: Never smoker Alcohol intake: current Alcohol use details: 3/MONTH Substance use: never Substance use type: does not use Living arrangements: with family Gender identity (if verbalized by the patient): Female Sexual Orientation (if Verbalized by the Patient): Straight or Heterosexual Spiritual care concerns: No Exam Narrative: GENERAL: Well-appearing, well-nourished, and in no acute distress. HEAD: Normocephalic, atraumatic. EYES: PERRLA and EOMI. ENT: Nares clear, no rhinorrhea or epistaxis. Mucous membranes moist. NECK: No adenopathy or masses. No JVD CHEST: Clear to auscultation. No respiratory distress. No wheezes rales or rhonchi HEART: Regular rate and rhythm. No murmur heard. Normal peripheral pulses. ABDOMEN: Soft, nontender, nondistended, normal active bowel sounds. EXTREMITIES: Normal range of motion. No edema. SKIN: Warm, dry, no rash. NEURO: No focal deficits. Alert and oriented x3. PSYCH: Normal mood and affect. Course Vital Signs Vital signs: Vital Signs Temperature 36.4 C 05/18/24 09:25 Pulse Rate 84 05/18/24 09:25 Respiratory Rate 20 05/18/24 09:25 Blood Pressure 132/85 05/18/24 09:25 Pulse Oximetry 100 05/18/24 09:25 Oxygen Delivery Room Air 05/18/24 09:25 Temperature 36.4 C 05/18/24 09:25 Pulse Rate 84 05/18/24 09:25 Respiratory Rate 20 05/18/24 09:25 Blood Pressure 132/85 05/18/24 09:25 Pulse Oximetry 100 05/18/24 09:25 Oxygen Delivery Room Air 05/18/24 09:25 Medical Decision Making MDM Narrative Medical decision making narrative: 33-year-old with complaints of left-sided neck pain that started 3 days ago. On exam pain is reproducible with palpation and movement of her head. She states she is at rest sitting there her pain is at a 8/10. She has not had anything for pain here. There is no midline cervical spine tenderness no history of trauma or injury no headache no vision changes. Plan to treat her pain with Valium, [place], Toradol shot and a UA this time did n ot feel like imaging is necessary. Patient re-evaluated at around 11:30 a.m. and she says she feeling much better her range of motion to her neck is improved and she feels ready to go home. She denies any further questions or concerns, plan to DC naproxen b.i.d. and cyclobenzaprine t.i.d. p.r.n. close PCP follow-up and return precautions discussed. Medical Records Medical records reviewed: Yes I reviewed the external patient's medical records. Vital Signs Vital Signs: Vital Signs Temperature 36.4 C 05/18/24 09:25 Pulse Rate 84 05/18/24 09:25 Respiratory Rate 20 05/18/24 09:25 Blood Pressure 132/85 05/18/24 09:25 Pulse Oximetry 100 05/18/24 09:25 Oxygen Delivery Room Air 05/18/24 09:25 Temperature 36.4 C 05/18/24 09:25 Pulse Rate 84 05/18/24 09:25 Respiratory Rate 20 05/18/24 09:25 Blood Pressure 132/85 05/18/24 09:25 Pulse Oximetry 100 05/18/24 09:25 Oxygen Delivery Room Air 05/18/24 09:25 Vitals reviewed by me Lab Data Lab results reviewed: Yes I reviewed the patient's lab results. Discharge Plan Discharge Clinical Impression: Muscle spasms of neck Patient Disposition: Home, Self-Care Condition: Stable Instructions: Antibiotic Form Additional Instructions: Continue to take naproxen twice daily for pain start taking cyclobenzaprine up to 3 times daily for pain this also may make you feel drowsy do not drive or operate machinery while taking this medication. Start using ice and heat, to the area pain Follow up with your PCP in 1 week If you develop any worsening symptoms or concerns return to the ER. Patient Language: [place] Prescriptions: New cyclobenzaprine 10 mg tablet 10 mg PO TID PRN (Reason: muscle spasm) Qty: 30 0RF naproxen 500 mg tablet 500 mg PO BID PRN (Reason: pain) Qty: 20 0RF No Action sertraline 50 mg Tablet 50 mg PO DAILY cephalexin 500 mg capsule 500 mg PO Q8H 7 Days Qty: 21 0RF ibuprofen 800 mg tablet 800 mg PO TID PRN (Reason: pain) 7 Days Qty: 21 0RF acetaminophen 500 mg tablet 1,000 mg PO TID PRN (Reason: vivek) 7 Days Qty: 42 0RF methocarbamol 750 mg tablet 1,500 mg PO TID Qty: 35 0RF Follow-up/Referrals: UNKNOWN,DOCTOR [Primary Care Provider] - Time of Disposition: 12:06
[2024-05-18] MEDS: HYDROcodone/acetaminophen (*CRX) 5-325 MG TABLET 1 TAB PO (10:23)
[2024-05-18] MEDS: diazePAM (*CRX) 5 MG TABLET PO (10:23)
[2024-05-18] MEDS: LIDOCAINE 5% PATCH 1 PATCH TRANSDERM (10:24)
[2024-05-18] MEDS: KETOROLAC 30 MG/ML VIAL (*BKC) IM (10:25)
--- OUTSIDE RECORDS SUMMARY | 2024-05-18 10:56 | XMS_ITS | Clinical Summary ---
Author Organization [facility] [employer] Address [address] [place] [address] Care Team Providers Care Adult Literacy Instructor Name Role Phone Unavailable Primary Care Provider Unavailabl e Source Comments [facility] [employer],non-owned Affiliates and Associated Physician Practices is amultiple site organization consisting of ambulatory clinics and hospital sitesin [place], [place], [place] and [place]. This disclosure is being madepursuant to the Care Everywhere program and may not contain all information available regarding this patient. Last updated 18.[facility] [employer] Allergies No known active allergies Medications * [...] Valtrex Assessment & Plan (06/14/2020 10:20 AM ULTRASOUND TESTER): Sabrina reports that she had her 1st [...] 1st Assessment & Plan (06/14/2020 10:21 AM ULTRASOUND TESTER): Sabrina remains at risk for gestational hypertension. She never started aspirin for preeclampsia risk reduction. Shingles 08/20/2019 Assessment & Plan (06/14/2020 10:19 AM ULTRASOUND TESTER): Sabrina does not have a current outbreak [...] Comments Blood Pressure 125/76 06/14/2020 9:15 AM ULTRASOUND TESTER Pulse 96 06/14/2020 9:15 AM ULTRASOUND TESTER Temperature 36.6 ??C (97.8 ??F) 06/14/2020 9:15 AM CS T Respiratory Rate - - Oxygen Saturation - - Inhaled Oxygen Concentration - - Weight 80.3 kg (177 lb) 06/14/2020 9:15 AM ULTRASOUND TESTER Height 152.4 cm (5') 06/14/2020 9:15 AM ULTRASOUND TESTER Body Mass Index 34.57 06/14/2020 9:15 AM ULTRASOUND TESTER Plan of Treatment Health Maintenance Due Date [...] this topic SABRINA VERDIN Personal/Famil y 1990 [address] [place] [address]
--- OUTSIDE RECORDS SUMMARY | 2024-05-18 10:56 | XMS_ITS | Patient Health Summary ---
Author Organization [facility] [employer] Address [address] [place] [address] Care Team Providers Care Bolt Sorter Name Role Phone Unavailable Primary Care Provider Unavailabl e Note from [facility],non-owned Affiliates and Associated Physician Practices is amultiple site organization consisting of ambulatory clinics and hospital sitesin [place], [place], [place] and [place]. This disclosure is being madepursuant to the Care Everywhere program and may not contain all information available regarding this patient. Last updated 18.[facility] [employer] Allergies No known active allergies Medications * [...] Comments Blood Pressure 125/76 06/14/2020 9:15 AM BIOFUELS MANAGER Pulse 96 06/14/2020 9:15 AM BIOFUELS MANAGER Temperature 36.6 ??C (97.8 ??F) 06/14/2020 9:15 AM CS T Respiratory Rate - - Oxygen Saturation - - Inhaled Oxygen Concentration - - Weight 80.3 kg (177 lb) 06/14/2020 9:15 AM BIOFUELS MANAGER Height 152.4 cm (5') 06/14/2020 9:15 AM BIOFUELS MANAGER Body Mass Index 34.57 06/14/2020 9:15 AM BIOFUELS MANAGER Procedures * SONOGRAM - COMPLETE(Performed 06/12/2020) Performed for HSV infection Results * SONOGRAM - COMPLETE (06/12/2020 8:59 AM BIOFUELS MANAGER) Anatomical Region Laterality Modality Other 06/12/2020 8:59 AM BIOFUELS MANAGER Narrative 06/12/2020 1:15 PM BIOFUELS MANAGER ? [facility] ? [facility] ?PHONE: ??FAX: Pat. Name: ?SABRINA VERDIN No: ?[id number] Study Date: ?? 06/12/2020 ??8:59am , Age: ? 1990, 29 Pregnancies: ?? 3, Para 1 Height: ? 60 in Weight: ? 153 lb LMP: ?11/02/2019 GA by LMP: ?31w6d GA by US: ? 32w5d ?? LUC: 08/02/2020 GA Selected: ??31w6d (LMP) LUC: ?08/08/2020 Referring MD: Sourav Cary MD Vocal Music Instructor: ??Zora Barney RDMS CPT4: ? 85795 BMI: ?29.88 Hist/Ind: ? HSV and Shingles in ?G1: GHTN MEASUREMENTS & AGE ? GROWTH EVALUATION Measurement ??GA ? Range ? Srce %for GA Ratios ----- ---- ------- BPD ??8.1 cm 32w5d (47r8m-33j6z) Hadl BPD 64% FL/BPD 0.78 (0.71 - 0.87) HC ??30.1 cm 33w3d (72k3n-77z7m) Hadl HC ??55% FL/AC ??0.21 (0.20 - 0.24) AC ??29.6 cm 33w4d (41n3v-56i8a) Hadl AC ??90% HC/AC ??1.02 (0.96 - 1.15) FL ?? 6.3 cm 32w5d (00z8z-33x6r) Hadl FL ??60% CI ? 0.75 (0.70 - 0.86) HL ?? 5.4 cm 31w2d (20y2w-08a7e) Ponce HL ??41% Cere 4.0 cm 32w1d (61r7r-25r4z) Brendan Cere56% GA for sonogram 32w5d (30p8z-78z7k) ?? Weight Estimate: based on (HL,BPD,HC,AC,FL,Cere) Avg [...] Signature> ??06/12/2020 01:15pm R Leno Cary MD [facility] ORDERABLES
--- OUTSIDE RECORDS SUMMARY | 2024-05-18 10:56 | XMS_ITS | Continuity of Care Document ---
Author Organization [facility] Address [address] [place] [address] Phone Care Team Providers Care Bulk Pigment Reducer Name Role Phone Rad Fontenot DO Unavailable Unavailable Advance Directives Directive Yes / No Effective Date File Name No Information Encounters Encounter Description Practice Location Reason(s) For Visit Diagnoses Date Provider Providers Copied on Encounter [facility], [address], [place], [place], [id number], [phone] [facility] No Information Corie [facility]field. [address] [place], [address], . tel: [phone] Family History Family Member Type Diagnosis Age At Onset No Information Payers Payer name Insurance type Covered libertarian ID Authoriza tion(s) Medicaid [facility] [id number] Social History Type Description Quantity Date Captured [...]
--- OUTSIDE RECORDS SUMMARY | 2024-05-18 10:56 | XMS_ITS | Clinical Summary ---
Author Organization [facility] Address [address] [address] [place] [address] Phone Care Team Providers Care Kick Boxer Name Role Phone Triny Da Silva MD Primary Care Provider [phone] Allergies No known active allergies Medications ALPRAZolam [...] of early CAD 04/06/2024 Overview (04/06/2024): Fatal [place], mother, age 60. Heavy alcohol and tobacco [...] STL ABSTRACTION Provider, Abstract 04/06/2024 9:30 AM PHYSICAL MEDICINE TEACHER Office Visit [facility] [place] [address] [place] [address] Awilda Saeed, MIKI Skin lesion of right lower extremity (Primary Dx); Candidiasis, intertriginous; Family history of early CAD; Family history of breast cancer in mother- age 40 03/25/2024 10:30 AM PHYSICAL MEDICINE TEACHER Office Visit [facility] [place] [address] [place] [address] Awilda Saeed, MIKI Skin lesion of right lower extremity (Primary Dx); Herpes zoster with other complication; Declined influenza vaccine; Positive screening for depression on 9-item Patient Health Questionnaire (PHQ-9) from Last 3 Months Family History Medical History Relation Name Comments No Known Problems Daughter Diabetes Father Heart Attack Maternal Grandfather No Known Problems Maternal Grandmother Breast Cancer Mother Heart Disease Mother fatal [place] Other Paternal Grandfather heart a nd kidney [...] Comments Blood Pressure 118/70 04/06/2024 9:32 AM PHYSICAL MEDICINE TEACHER Pulse 80 04/06/2024 9:32 AM PHYSICAL MEDICINE TEACHER Temperature 36.8 ??C (98.3 ??F) 04/06/2024 9:32 AM CS T Respiratory Rate 18 04/06/2024 9:32 AM PHYSICAL MEDICINE TEACHER Oxygen Saturation 98% 04/06/2024 9:32 AM PHYSICAL MEDICINE TEACHER Inhaled Oxygen Concentration - - Weight 84.8 kg (187 lb) 04/06/2024 9:32 AM PHYSICAL MEDICINE TEACHER Height 152.4 cm (5') 04/06/2024 9:32 AM PHYSICAL MEDICINE TEACHER Body Mass Index 36.52 04/06/2024 9:32 AM PHYSICAL MEDICINE TEACHER Plan of Treatment Upcoming Encounters Date Type Department Care Team (Late st Contact Info) Description 10/04/2024 9:30 AM CDT Office Visit [facility] [place] [address] [place] [address] Awilda Saeed, ANP [address] [place] [address] Health Maintenance Due Date Last [...] PCR, NON BLOOD Routine 03/25/2024 11:26 AM PHYSICAL MEDICINE TEACHER Herpes zoster with other complication WOUND CULTURE WITH GRAM STAIN Routine 03/25/2024 11:26 AM PHYSICAL MEDICINE TEACHER Herpes zoster with other complication from Last 3 Months Results * WOUND (AEROBIC) CULTURE WITH GRAM STAIN (03/25/2024 11:26 AM PHYSICAL MEDICINE TEACHER) AEROBIC CULTURE SEE NOTE Ques t Jessica-Amy Vaughan Comment: ??CULTURE, AEROBIC BACTERIA WITH GRAM STAIN ?Micro Number: ?[id number] ??Test Status: ? Final ??Specimen Source: ?? Leg ??Specimen Quality: ??Adequate ??Gram Stain: ?Few White blood cells seen ? Rare Gram positive cocci ??Result: ?Growth of skin jerry (note: Growth does not ? include S. aureus, beta-hemolytic Streptococci ? or P. aeruginosa). Test Performed at: [place] [address] [place], [place] ??[address] Nicolasa Romo Vo Lesion/Drainage Fluid (Leg) 03/25/2024 11:26 AM PHYSICAL MEDICINE TEACHER 03/26/2024 5:17 AM PHYSICAL MEDICINE TEACHER Awilda Saeed [facility] MICROBIOLOGY - GENERAL ORDER CARLOS Final Result [facility] [phone] [place] [address] [place] [address] * VZV BY PCR, NON BLOOD (03/25/2024 11:26 AM PHYSICAL MEDICINE TEACHER) SOURCE *LEG [facility] VARICELLA ZOSTER VIRUS (VZV) DNA, QL RT PCR Not Detected Not Detected [facility] Comment: (Note) This test was developed and its analytical performance characteristics have been determined by [employer]. It has not been cleared or approved by the U.S. Food and Drug Administration. This assay has been validated pursuant to the CLIA regulations and is used for clinical purposes. [facility] [address] [facility] [address] Tristian Hodge MD, PhD Test Performed at: [facility] [address] [place], [place] ??[address] Tristian Hodge MD,PhD Lesion/Drainage Fluid (Leg) 03/25/2024 11:26 AM PHYSICAL MEDICINE TEACHER 03/26/2024 5:17 AM PHYSICAL MEDICINE TEACHER us Awilda Khan Christophe ANP BODY FLUIDS AND STOOLS Final Result [facility] [phone] [facility] [address] [place] [address] from Last 3 Months Insurance * Guarantor: [employer]) Account Type Relation to Patient Date of Phone Billing Address Corporate Employer ATTN: CASSANDRA ERICKSON [address] [address] AL[place]GIAN OPEN ACCESS Care Teams Kick Boxer Relationship Specialty Start Date End Date Triny Da Silva MD [address] [place] [address] [place] [address] PCP - General Internal Medicine 03/25/24
--- OUTSIDE RECORDS SUMMARY | 2024-05-18 10:56 | XMS_ITS | Referral Summary ---
Author Organization [facility] [employer] Address [address] [place] [address] Care Team Providers Care Channel Rougher Name Role Phone Unavailable Primary Care Provider Unavailabl e Source Comments [facility] [employer],non-owned Affiliates and Associated Physician Practices is amultiple site organization consisting of ambulatory clinics and hospital sitesin [place], [place], [place] and [place]. This disclosure is being madepursuant to the Care Everywhere program and may not contain all information available regarding this patient. Last updated 18.[facility] Allergies No known active allergies Medications * [...] Valtrex Assessment & Plan (06/14/2020 10:20 AM SOLDERER ASSEMBLY REPAIR): Sabrina reports that she had her 1st [...] 1st Assessment & Plan (06/14/2020 10:21 AM SOLDERER ASSEMBLY REPAIR): Sabrina remains at risk for gestational hypertension. She never started aspirin for preeclampsia risk reduction. Shingles 08/20/2019 Assessment & Plan (06/14/2020 10:19 AM SOLDERER ASSEMBLY REPAIR): Sabrina does not have a current outbreak [...] Comments Blood Pressure 125/76 06/14/2020 9:15 AM SOLDERER ASSEMBLY REPAIR Pulse 96 06/14/2020 9:15 AM SOLDERER ASSEMBLY REPAIR Temperature 36.6 ??C (97.8 ??F) 06/14/2020 9:15 AM CS T Respiratory Rate - - Oxygen Saturation - - Inhaled Oxygen Concentration - - Weight 80.3 kg (177 lb) 06/14/2020 9:15 AM SOLDERER ASSEMBLY REPAIR Height 152.4 cm (5') 06/14/2020 9:15 AM SOLDERER ASSEMBLY REPAIR Body Mass Index 34.57 06/14/2020 9:15 AM SOLDERER ASSEMBLY REPAIR Plan of Treatment Not on file SABRINA VERDIN Personal/Famil y 1990 [address] [place] [address]
== END 2024-05-18 12:30 | disposition home or self-care (01) ==
PROVIDERS: Emergency Provider Nurse Practitioner Family
DX: M62.838 Other muscle spasm (principal); F41.9 Anxiety disorder, unspecified
CPT/HCPCS: 96372; 99283; A9270; J1885

== ENCOUNTER 2024-09-11 17:40 | Emergency (ER) | payer OTHER, SELFPAY ==
--- NOTE | ~2024-09-11 | XR_ITS ---
XR chest 2V Ordering provider: Chelsea Avalos APRN History: 34 years Female with . chest pain . Comparison: None. FINDINGS: MEDIASTINUM: The cardiac silhouette is not enlarged. LUNGS: No infiltrates, effusions or pneumothorax. OTHER: No free air under the diaphragm. IMPRESSION: No acute cardiopulmonary pathology. Reviewed, dictated and finalized at location A.
[2024-09-11 17:41] VITALS: BP 139/96; PULSE 98; RESP 16; TEMP 36.6; O2SAT 100
--- OUTSIDE RECORDS SUMMARY | 2024-09-11 17:43 | XMS_ITS | Data Portability ---
Author Organization [facility] Address [address] [place] [address] Care Team Providers Care Cash Clerk Name Role Phone GEORGE THORPE Primary Care Provider [phone] Assessment No assessment recorded. Plan of Treatment Reminders Order Date Submit Date Provider Last Modified By Organization Details Last Modified Time Details Appointments None recorded. Lab None recorded. Referral None recorded. Procedures None recorded. Surgeries None recorded. Imaging None recorded. Medication Orders sertraline 100 mg tablet 2022 023 [email or web address] [facility] #[id number], [address], [place], [address], 3 14:40:13 Xanax 0.5 mg tablet 2022 023 W[facility]I [facility] #[id number], [address] [place], [address], 3 12:59:13 sertraline 50 mg tablet 2022 023 [facility] #[id number], [address], [place], [address], 3 20:20:25 Xanax 0.5 mg tablet 2022 023 [email or web address] [facility] #[id number], [address], [place], [address], 3 22:09:00 Patient TargetsNo targets recorded. Patient InstructionsNo instructions recorded. Reason for Referral None Reported. Results Created Date Observation Date Name Description Value Unit Range Abnormal Flag Note LastModifiedBy Organization Detail LastModifiedTime 08/23/19 21 08/22/2020 CBC w/ auto diff WBC 7.2 10'3/ uL 3.6-10 .2 Not Available [facility] (Lab) [address], [place], [address], 08/23/2020 08:15:44 08/23/19 21 08/22/2020 CBC w/ auto diff RBC 4.50 10'6/ uL (based on docume nted legal sex) 4.10-5 .30 Not Available [facility] (Lab) [address] [place], [address], 08/23/2020 08:15:44 08/23/19 21 08/22/2020 CBC w/ auto diff HGB 10.5 g/dL (based on docume nted legal sex) 11.9-1 5.8 low Not Available [facility] (Lab) [address] [place], [address], 08/23/2020 08:15:44 08/23/19 21 08/22/2020 CBC w/ auto diff HCT 37.5 % (based on docume nted legal sex) 37.4-4 8.3 Not Available [facility] (Lab) [address] [place], [address], 08/23/2020 08:15:44 08/23/1908/22/2020 CBC w/ auto diff MCV 84.0 fL 82.0-9 9.0 Not Available [facility] (Lab) [address] [place], [address], 08/23/2020 08:15:44 08/23/1908/22/2020 CBC w/ auto diff MCH 23.0 pg 27.0-3 3.0 low Not Available [facility] (Lab) [address] [place], [address], 08/23/2020 08:15:44 08/23/19 21 08/22/2020 CBC w/ auto diff MCHC 28.0 g/dL 32.0-3 6.0 low Not Available [facility] (Lab) [address], [place], [address], 08/23/2020 08:15:44 08/23/19 21 08/22/2020 CBC w/ auto diff RDW 17.0 % 11.0-1 5.0 high Not Available [facility] (Lab) [address], [place], [address], 08/23/2020 08:15:44 08/23/19 21 08/22/2020 CBC w/ auto diff plt 497 10'3/ uL 150-45 0 high Not Available [facility] (Lab) [address] [place], [address], 08/23/2020 08:15:44 08/23/19 21 08/22/2020 CBC w/ auto diff MPV 9.8 fL Not Available [facility] (Lab) [address] [place], [address], 08/23/2020 08:15:44 08/23/19 21 08/22/2020 CBC w/ auto diff NRBC's 0.00 % 0 Not Available [facility] (Lab) [address] [place], [address], 08/23/2020 08:15:44 08/23/19 21 08/22/2020 CBC w/ auto diff absolute NRBCs 0.0 10'3/ uL 0 Not Available [facility] (Lab) [address] [place], [address], 08/23/2020 08:15:44 08/23/19 21 08/22/2020 CBC w/ auto diff neutrophils 58.0 % 37.0-7 2.0 Not Available [facility] (Lab) [address] [place], [address], 08/23/2020 08:15:44 08/23/19 21 08/22/2020 CBC w/ auto diff lymphocytes 29.0 % 16.0-4 8.0 Not Available [facility] (Lab) [address] [facility], [place], [address], 08/23/2020 08:15:44 08/23/19 21 08/22/2020 CBC w/ auto diff monocytes 10.0 % 4.0-14 .0 Not Available [facility] (Lab) [address] [place], [address], 08/23/2020 08:15:44 08/23/19 21 08/22/2020 CBC w/ auto diff eosinophils 2.0 % 0.0-9. 0 Not Available [facility] (Lab) [address] [facility], [place], [address], 08/23/2020 08:15:44 08/23/19 21 08/22/2020 CBC w/ auto diff basophils 1.0 % 0.0-2. 0 Not Available [facility] (Lab) [address] [place], [address], 08/23/2020 08:15:44 08/23/19 21 08/22/2020 CBC w/ auto diff immature granulocytes 0.0 % no define d refere nce range Not Available [facility] (Lab) [address] [place], [address], 08/23/2020 08:15:44 08/23/19 21 08/22/2020 CBC w/ auto diff absolute neutrophils 4.2 10'3/ uL 1.1-6. 0 Not Available [facility] (Lab) [address] [place], [address], 08/23/2020 08:15:44 08/23/19 21 08/22/2020 CBC w/ auto diff absolute lymphocytes 2.1 10'3/ uL 0.7-3. 4 Not Available [facility] (Lab) [address] [facility], [place], [address], 08/23/2020 08:15:44 08/23/19 21 08/22/2020 CBC w/ auto diff absolute monocytes 0.7 10'3/ uL 0.3-1. 0 Not Available [facility] (Lab) [address] [place], [address], 08/23/2020 08:15:44 08/23/19 21 08/22/2020 CBC w/ auto diff absolute eosinophils 0.1 10'3/ uL 0.0-0. 6 Not Available [facility] (Lab) [address] [facility], [place], [address], 08/23/2020 08:15:44 08/23/19 21 08/22/2020 CBC w/ auto diff absolute basophils 0.1 10'3/ uL 0.0-0. 1 Not Available [facility] (Lab) [address] [facility], [place], [address], 08/23/2020 08:15:44 08/23/19 21 08/22/2020 CBC w/ [...] resul ts are expec brianna. Not Available [facility] (Lab) [address] [facility], [place], [address], 08/23/2020 08:15:44 08/23/19 21 08/22/2020 uric acid, serum or plasm a uric acid 4.4 mg/dL (based on docume nted legal sex) 2.4-5. 7 Not Available [facility] (Lab) [address] [facility], [place], [address], 08/23/2020 08:15:45 08/23/19 21 08/22/2020 CMP, serum or plasm a sodium 140 mmol/ L 136-14 5 Not Available [facility] (Lab) [address] [place], [address], 08/23/2020 08:15:45 08/23/19 21 08/22/2020 CMP, serum or plasm a potassium 3.9 mmol/ L 3.5-5. 3 Not Available [facility] (Lab) [address] [place], [address], 08/23/2020 08:15:45 08/23/19 21 08/22/2020 CMP, serum or plasm a chloride 100 mmol/ L 98-107 Not Available [facility] (Lab) [address] [place], [address], 08/23/2020 08:15:45 08/23/19 21 08/22/2020 CMP, serum or plasm a carbon dioxide 24 mmol/ L 23-31 Not Available [facility] (Lab) [address] [facility], [place], [address], 08/23/2020 08:15:45 08/23/19 21 08/22/2020 CMP, serum or plasm a anion gap 16 mmol/ L 8-16 Not Available [facility] (Lab) [address] [place], [address], 08/23/2020 08:15:45 08/23/19 21 08/22/2020 CMP, serum or plasm a blood urea nitrogen 11 mg/dL (based on legal sex) 6-20 Not Available [facility] (Lab) [address] [place], [address], 08/23/2020 08:15:45 08/23/19 21 08/22/2020 CMP, serum or plasm a creatinine 0.80 mg/dL (based on legal sex) .5-1.2 Not Available [facility] (Lab) [address] [place], [address], 08/23/2020 08:15:45 08/23/19 21 08/22/2020 CMP, serum or plasm a GFR () 104 mL/mi n/1.7 3_m2 60-300 Not Available [facility] (Lab) [address] [place], [address], 08/23/2020 08:15:45 08/23/19 21 08/22/2020 CMP, serum or plasm a GFR (others) 86 mL/mi n/1.7 3_m2 60-300 Not Available [facility] (Lab) [address] [place], [address], 08/23/2020 08:15:45 08/23/19 21 08/22/2020 CMP, serum or plasm a calcium 9.7 mg/dL 8.4-10 .5 Not Available [facility] (Lab) [address] [place], [address], 08/23/2020 08:15:45 08/23/19 21 08/22/2020 CMP, serum or plasm a glucose 82 mg/dL 70-99 Not Available [facility] (Lab) [address] [place], [address], 08/23/2020 08:15:45 08/23/19 21 08/22/2020 CMP, serum or plasm a protein, total 7.4 g/dL 6.0-8. 3 Not Available [facility] (Lab) [address] [place], [address], 08/23/2020 08:15:45 08/23/19 21 08/22/2020 CMP, serum or plasm a albumin 4.1 g/dL 3.5-5. 0 Not Available [facility] (Lab) [address] [place], [address], 08/23/2020 08:15:45 08/23/19 21 08/22/2020 CMP, serum or plasm a ALT 62 units /L 9-43 high Not Available [facility] (Lab) [address] [place], [address], 08/23/2020 08:15:45 08/23/19 21 08/22/2020 CMP, serum or plasm a alkaline phosphatase 157 units /L 35-129 high Not Available [facility] (Lab) [address] [place], [address], 08/23/2020 08:15:45 08/23/19 21 08/22/2020 CMP, serum or plasm a AST 50 units /L (based on docume nted legal sex) 11-32 high Not Available [facility] (Lab) [address] [place], [address], 08/23/2020 08:15:45 08/23/19 21 08/22/2020 CMP, serum or plasm a bilirubin, total 0.2 mg/dL 0.0-1. 0 Not Available [facility] (Lab) [address] [place], [address], 08/23/2020 08:15:45 08/31/19 21 08/30/2020 CBC w/ auto diff WBC 9.3 10'3/ uL 3.6-10 .2 Not Available [facility] (Lab) [address] [place], [address], 08/31/2020 03:40:28 08/31/19 21 08/30/2020 CBC w/ auto diff RBC 4.70 10'6/ uL (based on docume nted legal sex) 4.10-5 .30 Not Available [facility] (Lab) [address] [place], [address], 08/31/2020 03:40:28 08/31/19 21 08/30/2020 CBC w/ auto diff HGB 11.1 g/dL (based on docume nted legal sex) 11.9-1 5.8 low Not Available [facility] (Lab) [address] [place], [address], 08/31/2020 03:40:28 08/31/19 21 08/30/2020 CBC w/ auto diff HCT 37.7 % (based on docume nted legal sex) 37.4-4 8.3 Not Available [facility] (Lab) [address] [facility], [place], [address], 08/31/2020 03:40:28 08/31/19 21 08/30/2020 CBC w/ auto diff MCV 80.0 fL 82.0-9 9.0 low Not Available [facility] (Lab) [address] [facility], [place], [address], 08/31/2020 03:40:28 08/31/19 21 08/30/2020 CBC w/ auto diff MCH 24.0 pg 27.0-3 3.0 low Not Available [facility] (Lab) [address] [facility], [place], [address], 08/31/2020 03:40:28 08/31/19 21 08/30/2020 CBC w/ auto diff MCHC 29.0 g/dL 32.0-3 6.0 low Not Available [facility] (Lab) [address] [facility], [place], [address], 08/31/2020 03:40:28 08/31/19 21 08/30/2020 CBC w/ auto diff RDW 16.0 % 11.0-1 5.0 high Not Available [facility] (Lab) [address] [facility], [place], [address], 08/31/2020 03:40:28 08/31/19 21 08/30/2020 CBC w/ auto diff plt 541 10'3/ uL 150-45 0 high Not Available [facility] (Lab) [address] [facility], [place], [address], 08/31/2020 03:40:28 08/31/19 21 08/30/2020 CBC w/ auto diff MPV 9.7 fL Not Available [facility] (Lab) [address] [facility], [place], [address], 08/31/2020 03:40:28 08/31/19 21 08/30/2020 CBC w/ auto diff NRBC's 0.00 % 0 Not Available [facility] (Lab) [address] [facility], [place], [address], 08/31/2020 03:40:28 08/31/19 21 08/30/2020 CBC w/ auto diff absolute NRBCs 0.0 10'3/ uL 0 Not Available [facility] (Lab) [address] [facility], [place], [address], 08/31/2020 03:40:28 08/31/19 21 08/30/2020 CBC w/ auto diff neutrophils 64.0 % 37.0-7 2.0 Not Available [facility] (Lab) [address] [facility], [place], [address], 08/31/2020 03:40:28 08/31/19 21 08/30/2020 CBC w/ auto diff lymphocytes 25.0 % 16.0-4 8.0 Not Available [facility] (Lab) [address] [facility], [place], [address], 08/31/2020 03:40:28 08/31/19 21 08/30/2020 CBC w/ auto diff monocytes 8.0 % 4.0-14 .0 Not Available [facility] (Lab) [address] [facility], [place], [address], 08/31/2020 03:40:28 08/31/19 21 08/30/2020 CBC w/ auto diff eosinophils 2.0 % 0.0-9. 0 Not Available [facility] (Lab) [address] [place], [address], 08/31/2020 03:40:28 08/31/19 21 08/30/2020 CBC w/ auto diff basophils 1.0 % 0.0-2. 0 Not Available [facility] (Lab) [address] [place], [address], 08/31/2020 03:40:28 08/31/19 21 08/30/2020 CBC w/ auto diff immature granulocytes 0.0 % no define d refere nce range Not Available [facility] (Lab) [address] [place], [address], 08/31/2020 03:40:28 08/31/19 21 08/30/2020 CBC w/ auto diff absolute neutrophils 6.0 10'3/ uL 1.1-6. 0 Not Available [facility] (Lab) [address] [facility], [place], [address], 08/31/2020 03:40:28 08/31/19 21 08/30/2020 CBC w/ auto diff absolute lymphocytes 2.3 10'3/ uL 0.7-3. 4 Not Available [facility] (Lab) [address] [place], [address], 08/31/2020 03:40:28 08/31/19 21 08/30/2020 CBC w/ auto diff absolute monocytes 0.8 10'3/ uL 0.3-1. 0 Not Available [facility] (Lab) [address] [place], [address], 08/31/2020 03:40:28 08/31/19 21 08/30/2020 CBC w/ auto diff absolute eosinophils 0.2 10'3/ uL 0.0-0. 6 Not Available [facility] (Lab) [address] [place], [address], 08/31/2020 03:40:28 08/31/19 21 08/30/2020 CBC w/ auto diff absolute basophils 0.1 10'3/ uL 0.0-0. 1 Not Available [facility] (Lab) [address] [place], [address], 08/31/2020 03:40:28 08/31/19 21 08/30/2020 CBC w/ [...] resul ts are expec brianna. Not Available [facility] (Lab) [address] [facility], [place], [address], 08/31/2020 03:40:28 08/31/19 21 08/30/2020 uric acid, serum or plasm a uric acid 4.4 mg/dL (based on docume nted legal sex) 2.4-5. 7 Not Available [facility] (Lab) [address] [place], [address], 08/31/2020 03:40:29 08/31/19 21 08/30/2020 CMP, serum or plasm a sodium 137 mmol/ L 136-14 5 Not Available [facility] (Lab) [address] [place], [address], 08/31/2020 03:40:30 08/31/19 21 08/30/2020 CMP, serum or plasm a potassium 4.2 mmol/ L 3.5-5. 3 Not Available [facility] (Lab) [address] [place], [address], 08/31/2020 03:40:30 08/31/19 21 08/30/2020 CMP, serum or plasm a chloride 97 mmol/ L 98-107 low Not Available [facility] (Lab) [address] [place], [address], 08/31/2020 03:40:30 08/31/19 21 08/30/2020 CMP, serum or plasm a carbon dioxide 24 mmol/ L 23-31 Not Available [facility] (Lab) [address] [facility], [place], [address], 08/31/2020 03:40:30 08/31/19 21 08/30/2020 CMP, serum or plasm a anion gap 16 mmol/ L 8-16 Not Available [facility] (Lab) [address] [place], [address], 08/31/2020 03:40:30 08/31/19 21 08/30/2020 CMP, serum or plasm a blood urea nitrogen 11 mg/dL (based on legal sex) 6-20 Not Available [facility] (Lab) [address] [facility], [place], [address], 08/31/2020 03:40:30 08/31/19 21 08/30/2020 CMP, serum or plasm a creatinine 0.60 mg/dL (based on legal sex) .5-1.2 Not Available [facility] (Lab) [address] [place], [address], 08/31/2020 03:40:30 08/31/19 21 08/30/2020 CMP, serum or plasm a GFR () 144 mL/mi n/1.7 3_m2 60-300 Not Available [facility] (Lab) [address] [place], [address], 08/31/2020 03:40:30 08/31/19 21 08/30/2020 CMP, serum or plasm a GFR (others) 119 mL/mi n/1.7 3_m2 60-300 Not Available [facility] (Lab) [address] [place], [address], 08/31/2020 03:40:30 08/31/19 21 08/30/2020 CMP, serum or plasm a calcium 9.9 mg/dL 8.4-10 .5 Not Available [facility] (Lab) [address] [place], [address], 08/31/2020 03:40:30 08/31/19 21 08/30/2020 CMP, serum or plasm a glucose 60 mg/dL 70-99 low Not Available [facility] (Lab) [address] [place], [address], 08/31/2020 03:40:30 08/31/19 21 08/30/2020 CMP, serum or plasm a protein, total 7.4 g/dL 6.0-8. 3 Not Available [facility] (Lab) [address] [place], [address], 08/31/2020 03:40:30 08/31/19 21 08/30/2020 CMP, serum or plasm a albumin 4.7 g/dL 3.5-5. 0 Not Available [facility] (Lab) [address] [place], [address], 08/31/2020 03:40:30 08/31/19 21 08/30/2020 CMP, serum or plasm a ALT 80 units /L 9-43 high Not Available [facility] (Lab) [address] [place], [address], 08/31/2020 03:40:30 08/31/19 21 08/30/2020 CMP, serum or plasm a alkaline phosphatase 155 units /L 35-129 high Not Available [facility] (Lab) [address] [place], [address], 08/31/2020 03:40:30 08/31/19 21 08/30/2020 CMP, serum or plasm a AST 60 units /L (based on docume nted legal sex) 11-32 high Not Available [facility] (Lab) [address] [place], [address], 08/31/2020 03:40:30 08/31/19 21 08/30/2020 CMP, serum or plasm a bilirubin, total 0.2 mg/dL 0.0-1. 0 Not Available [facility] (Lab) [address] [place], [address], 08/31/2020 03:40:30 Result Notes None recorded. Problems Name Problem SNOMED Code Status Onset Date Resolution Date Notes Provider Name and Address Organization Details Recorded Time Pregnanc y 15425719 Completed 201908/03/2020 Shakila Bohjoannensbimal ehl null, [facility] 14:24:57 Spasm of back muscles [id number] Completed flexeril Shakila Bohnensti ehl null, [facility] 14:24:52 Fatigue 04273773 Completed Shakila Bohnensti [facility], [facility] 14:24:52 Past pregnanc y history of gestatio nal hyperten ten 051663739 Completed asa Sealy Loree ehl [facility], [facility] 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 14:59:36 Pregnanc y test negative [id number] Completed 201405/11/2020 examinati on or test, negative result;Re corded Elsewhere : No Locati on: [facility] So urce: EHR Chron ic: N Practic e ID: [id number] Bill able Time: 01:15:00 PM Celiasuleimangiacomo ObrienMarina [facility] 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 1 14:59:21 Amenorrh ea [id number] Completed 201405/11/2020 Absence of menstruat ion;Recor ded Elsewhere : No Locati on: [facility] So urce: EHR Chron ic: N Practic e ID: 0001 Bill able Time: 01:15:00 PM Becky le [facility] 1 14:59:01 Transien t hyperten ten of pregnanc y - delivere d with postnata l complica tion [id number] Completed 201305/11/2020 Postpartu m transient hypertens ion;Recor ded Elsewhere : No Locati on: [facility] So urce: EHR Chron ic: N Practic e ID: 0001 Bill able Time: 02:45:00 PM Becky Gray [facility] 1 14:59:39 Abdomina l pain [id number] Completed 201205/11/2020 Abdominal Pain;Dre rded Elsewhere : No Locati on: [facility] So urce: EHR Chron ic: N Practic e ID: [id number] Bill able Time: 10:30:00 AM Becky le [facility] 14:58:57 Overweig ht [id number] Completed 201305/11/2020 Overweigh t;Recorde d Elsewhere : No Locati on: [facility] So urce: EHR Chron ic: N Practic e ID: [id number] Bill able Time: 01:30:00 PM Becky [facility] 14:59:24 Disorder of breast [id number] Completed 201805/11/2020 Disorder of breast, unspecifi ed;Record ed Elsewhere : No Locati on: [facility] So urce: EHR Chron ic: N Practic e ID: [id number] Bill able Time: 09:30:00 AM Becky le, [facility] 1 14:59:19 Transien t hyperten ten of pregnanc y - not delivere d [id number] Completed 201305/11/2020 Antepartu m transient hypertens ion;Recor ded Elsewhere : No Locati on: [facility] So urce: EHR Chron ic: N Practic e ID: 0001 Bill able Time: 11:30:00 AM Becky le, [facility] 14:59:41 Adult health examinat ion Completed 201305/11/2020 ROUTINE MEDICAL EXAM;Dre rded Elsewhere : No Locati on: [facility] So urce: EHR Chron ic: N Practic e ID: [id number] Bill able Time: 01:30:00 PM Bceky le, [facility] 14:59:00 Clinical finding Completed 201805/11/2020 Disorder of pigmentat ion, unspecifi ed;Record ed Elsewhere : No Locati on: [facility] So urce: EHR Chron ic: N Practic e ID: [id number] Bill able Time: 01:00:00 PM Becky le, [facility] 14:59:08 Ultrason ography Completed 201205/11/2020 screening for malformat ion using ultrasoni cs;Record ed Elsewhere : No Locati on: [facility] So urce: EHR Chron ic: N Practic e ID: 0001 Bill able Time: 02:00:00 PM Becky le, [facility] 14:59:43 Antenata l screenin g Completed 201205/11/2020 screening for malformat ion using ultrasoni cs;Record ed Elsewhere : No Locati on: [facility] So urce: EHR Chron ic: N Practic e ID: 0001 Bill able Time: 02:00:00 PM Becky le, [facility] 1 14:59:03 Congenit al malforma tion [id number] Completed 201205/11/2020 screening for malformat ion using ultrasoni cs;Record ed Elsewhere : No Locati on: [facility] So urce: EHR Chron ic: N Practic e ID: 0001 Bill able Time: 02:00:00 PM Becky le, [facility] 14:59:12 Obesity 606123950 Completed 201305/11/2020 Obesity;R ecorded Elsewhere : No Locati on: [facility] So urce: EHR Chron ic: N Practic e ID: [id number] Bill able Time: 01:00:00 PM Becky [facility] 14:59:23 Postpart um care Completed 201305/11/2020 Post Followup; Recorded Elsewhere : No Locati on: [facility] So urce: EHR Chron ic: N Practic e ID: [id number] Bill able Time: 02:15:00 PM Becky [facility] 14:59:26 Constipa tion [id number] Completed 201305/11/2020 Constipat ion, unspecifi ed;Record ed Elsewhere : No Locati on: [facility] So urce: EHR Chron ic: N Practic e ID: 0001 Bill able Time: 02:45:00 PM Becky le [facility] 14:59:15 Primigra yamila [id number] Completed 201205/11/2020 Supervisi on of normal first ;Recorded Elsewhere : No Locati on: [facility] So urce: EHR Chron ic: N Practic e ID: [id number] Bill able Time: 10:30:00 AM Becky le, [facility] 14:59:30 Screenin g for malignan t neoplasm of cervix Completed 201305/11/2020 Screening for malignant neoplasms of the cervix;Re corded Elsewhere : No Locati on: [facility] So urce: EHR Chron ic: N Practic e ID: [id number] Bill able Time: 01:00:00 PM Becky [facility] 14:59:32 Delivery normal [id number] Completed 201305/11/2020 Normal delivery; Practice ID: 0001 Celiadavid Kumarle [facility] 14:59:17 Single live from singleto n pregnanc y [id number] Completed 201305/11/2020 Mother with single liveborn; [facility] 14:59:35 Benign neoplasm of skin of trunk [id number] Completed 201805/11/2020 Other benign neoplasm of skin of trunk;Pra ctice ID: 0001 Becky Gray [facility] 14:59:05 Clinical finding Completed 201805/11/2020 Other specified disorders of breast;Pr actice ID: 0001 Becky Gray [facility] 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 treated and + HSV 2- tx Valtrex per SB and aware prophylac tic Valtrex to follow initial tx. Shakila le [facility] 14:24:52 Herpes simplex 51775173 Completed 2 IgG+ - Valtrex btwn 34-36wks Shakila le [facility] 14:24:52 [facility]part [facility] [id number] Active 2020 Daisy Puentes rey [facility] 13:03:53 Problem Notes None recorded. Procedures Surgical History Date Name Laterality Status Provider Name and Address Organization Details Recorded Time 1 TUBAL LIGATION (SURG) completed Aranza Balderrama [facility] 09/25/2020 10:21:59 0 Date of Last Mammogram completed Moon Junior [facility] 06/26/2020 11:50:02 4 Date of Last Pap Smear completed Heena Jackie [facility] 12/31/2019 15:51:33 Imaging Results None recorded. [...] oral route every day 07/15 completed Prescrib ed Elsewher e: No Locat ion: [facility] M odify By: [email or web address] Encount er DateTime : 03/31/20 14 09:34:32 [...] Prescrib ed Elsewher e: Yes Loca tion: [facility] odify By: jill conrad DateTime : 07/06/19 14 03:30:00 PM Not Available Not Available Not Available Vitamin D2 1,250 mcg (50,000 unit) capsule take 1 capsule (05419CC ITS) by oral route every week 07/05 completed Prescrib ed Elsewher e: No Locat ion: [facility] odify By: jill conrad DateTime : [...] Prescrib ed Elsewher e: Yes Loca tion: [facility] odify By: jill conrad DateTime : [...] Prescrib ed Elsewher e: No Locat ion: [facility] odify By: ada conrad DateTime : 01/05/20 14 01:00:00 PM Not Available Not Available Not Available Giovani-D uo DHA 29 mg-1 mg-400 mg oral pack take 2 by Oral route every day for 30 days 01/07 completed Prescrib ed Elsewher e: No Locat ion: [facility] odify By: ada conrad DateTime : 12/10/19 [...] Updated DateTime 1 152.4 cm 32.8 kg/m2 35504.5 2 g 144 mm[Hg] 104 mm[Hg] 146 mm[Hg] 100 mm[Hg] 140 mm[Hg] 100 mm[Hg] Moon Junior [facility] 1 16:35:58 Date Recorded Body height Body mass index (BMI) Body weight Systolic blood pressure Diastolic blood pressure Provider Name and Address Organization Details Last Updated DateTime 05/30/2022 152.4 cm 35.9 kg/m2 52734 g 150 mm[Hg] 87 mm[Hg] Moon [facility] 3 12:04:31 Date Recorded Body height Body mass index (BMI) Body weight Systolic blood pressure Diastolic blood pressure Provider Name and Address Organization Details Last Updated DateTime 06/27/2022 152.4 cm 35.9 kg/m2 88202 g 146 mm[Hg] 88 mm[Hg] Moon [facility] 3 10:34:34 Date Recorded Body height Body mass index (BMI) Body weight Systolic blood pressure Diastolic blood pressure Provider Name and Address Organization Details Last Updated DateTime 12/02/2022 152.4 cm 36.5 kg/m2 20716.77 g 142 mm[Hg] 86 mm[Hg] Moon [facility] 3 12:36:33 Social History Question Answer Notes LastModified by Organizat ion Details LastModified Time Tobacco Smoking Status Never Smoker Moon Junior [facility] 06/26/2020 11:50:07 Do You Have An Advance Directive? No Information not available 06/26/2020 If You Are , What Was Your [...] Or The Highest Degree You Have Received? [id number] Information not available 06/26/2020 How Many Days Of Moderate To Strenuous Exercise, Like A Brisk Walk, Did You Do In The Last 7 Days? 5 Alot Of Walking At Work Information not available 06/26/2020 Are There Any Guns Present In Your Home? No Information not available 06/26/2020 What Was The Date Of Your Most Recent Tobacco Screening? 08/22/2020 [email or web address] Information not available 08/22/2020 Do You Use Protection During Sex? No Information not available 06/26/2020 Do You Use Your Seat Belt Or Car Seat Routinely? Yes Information not available 06/26/2020 Do You Have Smoke And Carbon Monoxide Detectors In Your Home? Yes Information not available 06/26/2020 How Much Tobacco Do You Smoke? No [email or web address] Information not available 03/20/2020 Do You Use Sunscreen Routinely? Yes Information not available 06/26/2020 Has Tobacco Cessation Counseling Been Provided? No Information not available 06/26/2020 Have You Used IV Drugs? No Information not available 06/26/2020 Sex: Unknown Functional Status Question Answer Note LastModified by Organizat ion Details LastModified Time Do you use any illicit or recreational drugs? No Information not available 05/23/2020 Do you or have you ever used any other forms of tobacco or nicotine? No Information not available 06/26/2020 What is your level of alcohol consumption? None Information not available 01/04/2020 Do you or have you ever used smokeless tobacco? Never used smokeless tobacco Information not available 06/26/2020 Are you able to walk? YESWOREST Information not available 06/26/2020 What is your occupation? [employer] Information not available 06/26/2020 What is your exercise level? Occasional Information not available 01/04/2020 Mental Status Question Answer Note LastModified by Organization D etails LastModified Time Do you feel stressed (tense, restless, nervous, or anxious, or unable to sleep at night)? [id number] [email or web address] Information not available 06/26/2020 Family History Relationship Description Onset Age of this Age Resolved Age Notes LastModified by Organization Details LastModified Time Mother Family history of breast cancer phewitt Not available 2020 11:40:56 Father Diabetes mellitus [email or web address] Not available 2019 15:54:03 Paternal Grandfather Diabetes mellitus [email or web address] Not available 2019 15:54:03 Maternal Aunt Family history of breast cancer phewitt Not available 2020 11:40:56 Medical History Condition Response Allergies (Food, seasonal, environmental ) N Other N Drug/Latex Allergies/Reactions N Breast Cancer N Blood Transfusion N Dermatologic Disorders N [...] Neurologic/Epilepsy N Endometriosis N High Cholesterol N Fibromyalgia N Headaches N Kidney Disease N Heart Problems N Thyroid Problems N Kidney or Bladder Problems N GI Problems N Eating Disorder [...] SNOMED-CT Code Diagnosis ICD10 Code Diagnosis Note Sourav Cary MD [facility] [address],[place] [address] 01/04/2020 16:07:26 01/05/2020 11:36:57 Daisyvaishali Puentes [facility] [address],[place] [address] 01/04/2020 16:08:07 01/05/2020 14:57:04 test positive 226116441 Z32.01 Risk factors addressed: Tobacco Cessation, Safe [...] Sequential Screen handout given and discussed with patient.Ch ildbirth classes recommende d.New OB sheet given. Pt refused pap today. Would be willing to do at 12 or 16 week visit. If previous , counseling .Pt verbalizes that she understand s the importance of above instructio ns.All questions were answered. Patient reminded to have annual well woman examinatio n and address [facility] . [id number] Sourav Cary MD [facility] [address],[place] [address] 01/24/2020 15:51:08 01/24/2020 16:48:20 screening 763139028 Z36.82 Z36.0 Z36.89 [id number] Sourav Cary MD [facility] [address],[place] [address] 01/24/2020 15:51:54 01/24/2020 17:15:25 Spasm of back muscles 015027314 M62.830 Routine an tenatal care 493282497 Z34.81 [id number] Sourav Cary MD [facility] [address],[place] [address] 02/21/2020 09:20:55 02/22/2020 08:31:37 [id number] Daisy Puentes [facility] [address],[place] [address] 02/21/2020 09:21:42 02/21/2020 10:29:46 Routine care 597969884 Z34.92 [id number] Sourav Cary MD [facility] [address],[place] [address] 03/20/2020 14:05:51 03/20/2020 17:44:30 screening for malformation 721292429 Z36.3 75889 Daisy Puentes [facility] [address],[place] [address] 03/20/2020 14:07:19 03/20/2020 17:43:44 Routine care 173539471 Z34.92 [id number] Daisy Puentes [facility] [address],[place] [address] 04/17/2020 10:44:24 04/17/2020 11:55:55 Routine care 467521739 Z34.92 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 74551473 Z31.430 [id number] Sourav Cary MD [facility] [address],[place] [address] 04/17/2020 10:44:59 04/17/2020 11:41:53 condition affecting obstetrical care of mother 355832211 O35.8XX0 Z3A.23 80163 Ramya Bates MD [facility] [address],[place] [address] 05/15/2020 10:11:27 05/15/2020 10:47:36 Routine care 484691070 Z34.82 [id number] MD Zbigniew Zamorano [address],[place] [address] 05/23/2020 14:40:37 05/24/2020 11:04:42 Herpes simplex 95558706 B00.9 [id number] Daisy Puentes [facility] [address],[place] [address] 05/29/2020 11:42:24 05/30/2020 10:21:28 Routine care 966708984 Z34.92 Additional precaution demond measures were taken to minimize potential exposure to the Covid-19 virus during this patient s visit, including available hand api developer upon arrive, temperatur e check and being asked a series of screening questions. All staff wore face coverings during this encounter, as well as provided additional cleaning and sanitizing of all surfaces, including countertop s, pens, chairs, door handles, light switches, etc, prior to and following the patient s visit. [id number] Daisy Puentes [facility] [address],[place] [address] 06/12/2020 11:37:41 06/12/2020 12:38:12 Routine care 752018818 Z34.92 Additional precaution demond measures were taken to minimize potential exposure to the Covid-19 virus during this patient s visit, including available hand api developer upon arrive, temperatur e check and being asked a series of screening questions. All staff wore face coverings during this encounter, as well as provided additional cleaning and sanitizing of all surfaces, including countertop s, pens, chairs, door handles, light switches, etc, prior to and following the patient s visit. [id number] Sourav Cary MD [facility] [address],[place] [address] 06/26/2020 11:40:52 06/26/2020 12:06:29 Urinary tract infectious disease 25289488 N39.0 Herpes simplex 83325987 B00.9 [id number] MD Zbigniew Zamorano [address],[place] [address] 07/10/2020 10:00:26 07/10/2020 10:56:43 Routine care 387853069 Z34.81 [id number] Sourav Cary MD [facility] [address],[place] [address] 07/17/2020 09:32:19 07/17/2020 10:39:59 Routine care 094264905 Z34.81 [id number] Sourav Cary MD [facility] [address],[place] [address] 07/24/2020 10:13:56 07/24/2020 10:46:42 Routine care 345768740 Z34.81 [id number] Daisy Puentes [facility] [address],[place] [address] 08/03/2020 14:11:48 08/03/2020 14:52:48 -induced hypertension 5856320379 9100 O13.9 BP still high but not in treatable range. No symptoms. Pt feeling great. PIH precaution s given. Return in 1 week for bp check or sooner if any problems/c oncerns. [id number] Daisy Puentes [facility] [address],[place] [address] 08/09/2020 11:09:30 08/09/2020 11:57:23 -induced hypertension 1607149778 9100 O13.9 BP improving. PIH precaution s given. Return in 1 week for bp check or sooner if any problems/c oncerns. [id number] Daisy Puentes [place] [address],[place] [address] 08/14/2020 09:27:12 08/14/2020 10:04:20 -induced hypertension 5036306028 9100 O13.9 BP stable. PIH precaution s given. Return in 1 week for bp check or sooner if any problems/c oncerns. We have discussed some fpc plans if bp does not normalize. At this point no medication . [id number] Kari Jefferson, [facility] [address],[place] [address] 08/22/2020 11:54:03 08/22/2020 14:30:45 care 184530096 Z39.2 - induced hypertension 84184507 O13.9 77222 Daisyvaishali Puentes CNM [facility] [address] [address] 08/30/2020 12:50:37 08/30/2020 13:19:26 state 84267919 Z39.2 Continue to watch for signs/symp toms [...] of today's plan if desired -induced hypertension 2887661169 9100 O13.9 - induced hypertension 53666749 O13.9 BP improved. Denies h/a, v/d, or e/p. [id number] Sourav Cary MD [facility] [address] [address] 09/14/2020 14:52:53 09/14/2020 16:07:43 Contraception care management 843754473 Z30.9 this patient is a 30-year-ol d female with unwanted fertility who presents for preoperati ve care. We have agreed to perform laparoscop ic bilateral tubal ligation. She understand s the risks, benefits, and alternativ es. She has completed the informed consent process and ready to proceed. [id number] Sourav Cary MD [facility] [address] [address] 09/25/2020 09:30:07 09/25/2020 09:32:48 [id number] Sourav Cary MD [facility] [address] [address] 09/29/2020 15:57:44 09/29/2020 16:48:56 Mixed anxiety and depressive disorder 771132298 F41.8 This patient is a 30-year-ol d [...] 2 months for follow-up on depression . [id number] Sourav Cary MD [facility] [address],[place] [address] 05/30/2022 11:35:31 05/30/2022 12:41:41 Mixed anxiety and depressive disorder 990829313 F41.8 this patient is a 31-year-ol d [...] of work for 3 weeks as well. [id number] Sourav Cary MD [facility] [address],[place] [address] 06/27/2022 10:12:06 06/27/2022 11:13:13 Mixed anxiety and depressive disorder 103205834 F41.8 this patient is a 31-year-ol d female who presents for follow-up on depression anxiety. She was treated with sertraline Xanax. She has much better EPDF score today. We discussed side effects. Side effects very tolerable for her. She would like to continue on current medication s. We agreed to follow-up in 3 months [id number] Sourav Cary MD [facility] [address],[place] [address] 12/02/2022 12:23:58 12/02/2022 14:45:46 Mixed anxiety and depressive disorder 553369786 F41.8 32-year-ol d female presents for follow-up [...] Policy Number Policy Ca Covered Member ID Ac Member ID Guarantor Name 09/22/2020 1 [facility] [id number] Felix Choi [id number] Sabrina Hudson 09/29/2020 1 [facility] [id number] Felix Choi [id number] Sabrina Florezden 05/30/2022 1 [facility] Sabrina Hudson [id number] Sabrina Kal 06/27/2022 1 [facility] Sabrina Hudson [id number] Sabrina Florezden 12/02/2022 1 [facility] Sabrina Florezden [id number] [facility] Notes Date Note Type Note Provider Name [...] depression. Sourav Cary MD [address], [place], [address], [facility] 09/29/2020 16:32:47 05/30/2022 text/html this patient is a 31-year-old female with severe anxiety depression. She of very close friend. It was a traumatic catheterization. Was a painful from cancer. Patient was with her at some very difficult times. She has had some episodes of anxiety in the past. She was treated with sertraline and responded well. We spent over 20 minutes [id number]. More than 50% was counseling. We agreed to treat with sertraline and some p.r.n. Xanax. She will follow-up in 3 weeks. She is going to be out of work for 3 weeks as well. Sourav Cary MD [address], [place], [address], [facility] 05/30/2022 12:35:37 06/27/2022 text/html this patient is a 31-year-old female who presents for follow-up on depression anxiety. She was treated with sertraline Xanax. She has much better EPDF score today. We discussed side effects. Side effects very tolerable for her. She would like to continue on current medications. We agreed to follow-up in 3 months Sourav Cary MD [address], [place], [address], [facility] 06/27/2022 11:09:50 12/02/2022 text/html 32-year-old femty chandler presents for follow-up on anxiety depression. [...] psychiatry consultation. We spent over 20 minutes [id number]-[id number]. More than 50% was counseling. Sourav Cary MD [address], [place], [address], [facility] 12/02/2022 14:40:36 OBGyn Episode Ob Episode Information Episode Created Date Number of Fetuses Patient Bloodtype Patient rh Status Prepregnancy Weight lbs Domestic Partner Domestic Partner Phone Father Name Host/Hostess Ground Status 12/31/19 1 CLOSED Fetus Data First Name Last [...] Domestic Partner Domestic Partner Phone Father Name Host/Hostess Ground Status 01/24/20 1 CLOSED Fetus Data First Name Last [...] Domestic Partner Domestic Partner Phone Father Name Host/Hostess Ground Status 10/05/20 20 1 O Positive 153 CLOSED Fetus Data First Name Last Name Admitted to NICU Weight (g) Sex Living Outcome Pediatric Complications Fetus ID Race Codes Race Delivery Type 2919.99 85 M true Full Term 5059 Vaginal Delivery Problems Problem Notes EIFLV noted Problem Name Start Date End Date Resolution Snomed Code Not e Spasm of back muscles MEDICATION 7125922 00 flexeril Fatigue 32121676 Past history of gestational hypertension MEDICATION 194947248 asa Herpes simplex 72816119 2 IgG + - Valtrex btwn 34-36wks Lesion of vulva 995466497 pain ful cluster of vulvar lesions consistent [...] Weight in lbs Pre/Post Dialysis Refused Weight 159.251347737178 BP Diastolic BP Location Tested BP Systolic [...] Weight in lbs Pre/Post Dialysis Refused Weight 160.353767930445 BP Diastolic BP Location Tested BP Systolic [...] Weight in lbs Pre/Post Dialysis Refused Weight 164.21134271430 BP Diastolic BP Location Tested BP Systolic [...] Weight in lbs Pre/Post Dialysis Refused Weight 170.562480800099 BP Diastolic BP Location Tested BP Systolic [...] Weight in lbs Pre/Post Dialysis Refused Weight 175.946686617787 BP Diastolic BP Location Tested BP Systolic [...] Weight in lbs Pre/Post Dialysis Refused Weight 175.344050218578 BP Diastolic BP Location Tested BP Systolic [...] Weight in lbs Pre/Post Dialysis Refused Weight 174.85903348710 BP Diastolic BP Location Tested BP Systolic BP Type 74 115 Fetus Heart Rate Present A 156 Fetus Movement A Yes Comments Doing well. TDAP done. Decli melanie flu shot. Vulvar lesions improved. Still has some discomfort on right side of vulva and her right leg (history of shingles on that side) dx August of last year. Will schedule with [facility]. Flowsheet Date 06/12/2020 Corcoran Score Blood Edema Fundus Height Fundus Units Glucose Ketones Leukocytes Nitrite Labor Signs Protein Cervic Dilation Cervic Effacement Cervic Station none 32 neg Type Weight in lbs Pre/Post Dialysis Refused Weight 176.982729317248 BP Diastolic BP Location Tested BP Systolic BP Type 81 118 Fetus Heart Rate Present A 141 Fetus Movement A Yes Comments Had u/s with [facility] today and w ill meet with [facility] on Friday. Shingles resolved. Flowsheet Date 06/26/2020 Corcoran Score Blood Edema Fundus Height Fundus Units Glucose Ketones Leukocytes Nitrite Labor Signs Protein Cervic Dilation Cervic Effacement Cervic Station 33 Type Weight in lbs Pre/Post Dialysis Refused Weight 181.437206517112 BP Diastolic BP Location Tested BP Systolic [...] Weight in lbs Pre/Post Dialysis Refused Weight 187.279945354134 BP Diastolic BP Location Tested BP Systolic [...] Weight in lbs Pre/Post Dialysis Refused Weight 189.365091731296 BP Diastolic BP Location Tested BP Systolic [...] Weight in lbs Pre/Post Dialysis Refused Weight 190.711318905998 BP Diastolic BP Location Tested BP Systolic [...] Weight in lbs Pre/Post Dialysis Refused Weight 172.359136860689 BP Diastolic BP Location Tested BP Systolic [...] Estim ated Date of Delivery false Thalassemia (Turkmen, Jordanian, Mediterranean, Or Background): MCV < 80 false Neural Tube Defect (Meningomyelocele, Spina Bifi da, Or Anencephaly) false Congenital Heart Defect false Down Syndrome false Cristian-Sachs (eg, Baptism, Cajun, Argentine-[place]) f alse Patrick Disease false Sickle Cell Disease Or Trait () false Hemophilia Or Other Blood Disorders false Muscular Dystrophy false Cystic Fibrosis false Rex's Chorea false Intellectual Disability/Autism false If Yes, [...] Induce d Regional-Ep idural 37.6 false Daisy Puentes CNM GHT[facility] Gbs+ Discharge Information Feeding Method Contraceptive Method Maternal HG B and HCT Levels
--- OUTSIDE RECORDS SUMMARY | 2024-09-11 17:43 | XMS_ITS | Clinical Summary ---
Author Organization [facility] Compliance Control Address [address] [place] [address] Care Team Providers Care [employer] Name Role Phone Unavailable Primary Care Provider Unavailabl e Source Comments [facility] Compliance Control,non-owned Affiliates and Associated Physician Practices is amultiple site organization consisting of ambulatory clinics and hospital sitesin [place], [place], [place] and [place]. This disclosure is being madepursuant to the Care Everywhere program and may not contain all information available regarding this patient. Last updated 18.[employer] Compliance Control Allergies No known active allergies Medications * Be aware that medications may not be up to date on this document. Alwaysverify current medications with the patient. Vit-Fe Fumarate-FA ( VITAMIN) 28-0.8 MG tabletIndicatio ns: Take 1 tablet by mouth once daily Reasons: Active ferrous sulfate 325 (65 FE) MG tablet Take 325 mg by mouth once daily Active valACYclovir (VALTREX) 1 GM tabletIndicatio ns:Genital Herpes Simplex Take 1,000 mg by mouth every 12 hours Reasons: Genital Herpes Active vitamin D3 (CHOLECALCIFERO L) 25 MCG (1000 UNITS) tabletIndicatio ns:Vitamin D Deficiency Take 1,000 Units by mouth once daily Reasons: Vitamin D Deficiency Active Active Problems Problem Noted Date Diagnosed Date HSV infection 06/07/2020 Overview (06/07/2020): HSV & Shingles in (vulvar lesions) - on Valtrex Assessment & Plan (06/14/2020 10:20 AM BRUSH OR BROOM CUTTER): Sabrina reports that she had her 1st [...] 1st Assessment & Plan (06/14/2020 10:21 AM BRUSH OR BROOM CUTTER): Sabrina remains at risk for gestational hypertension. She never started aspirin for preeclampsia risk reduction. Shingles 08/20/2019 Assessment & Plan (06/14/2020 10:19 AM BRUSH OR BROOM CUTTER): Sabrina does not have a current outbreak [...] drink = 0.6 oz pur e alcohol) Comments No Sex and Gender Information Value Date Recorded Sex Assigned at Not on file Legal Sex Female 3:22 PM BRUSH OR BROOM CUTTER Gender Identity Not on file Sexual Orientation Not on file Last Filed Vital Signs Vital Sign Reading Time Taken Comments Blood Pressure 125/76 06/14/2020 9:15 AM BRUSH OR BROOM CUTTER Pulse 96 06/14/2020 9:15 AM BRUSH OR BROOM CUTTER Temperature 36.6 C (97.8 F) 06/14/2020 9:15 AM BRUSH OR BROOM CUTTER Respiratory Rate - - Oxygen Saturation - - Inhaled Oxygen Concentration - - Weight 80.3 kg (177 lb) 06/14/2020 9:15 AM BRUSH OR BROOM CUTTER Height 152.4 cm (5') 06/14/2020 9:15 AM BRUSH OR BROOM CUTTER Body Mass Index 34.57 06/14/2020 9:15 AM BRUSH OR BROOM CUTTER Plan of Treatment Health Maintenance Due Date Last Done Comments HIV SCREENING 08/28/2007 HEPATITIS C SCREENING 08/23/2010 DTAP/TDAP/TD VACCINES (1 - Tdap) 08/28/2011 HEPATITIS B VACCINE (1 of 3 - 19+ 3-dose series) 08/28/2011 COVID-19 VACCINE ( - 2023-2 5 season) 2023 DEPRESSION SCREENING 04/21/2024 INFLUENZA VACCINE (Season Ended) 2024 ZOSTER VACCINE (1 of 2) 2042 HIB VACCINE Aged Out No longer eligi ble based on patient's age to complete this topic HPV VACCINE Aged Out No longer eligi ble based on patient's age to complete this topic MENINGOCOCCAL (Group B) VACC INE SHARED DECISION-MAKING Aged Out No longer eligibl e based on patient's age to complete this topic MENINGOCOCCAL GROUPS A/C/Y/W VACCINE Aged Out No longer eligible b ased on patient's age to complete this topic PNEUMOCOCCAL VACCINE Aged Out No long er eligible based on patient's age to complete this topic Insurance [employer] [facility]
--- OUTSIDE RECORDS SUMMARY | 2024-09-11 17:43 | XMS_ITS | Encounter Summary ---
Author Organization [facility] Address [address] [place] [address] Care Team Providers Care Medical Management Specialist Name Role Phone Triny Da Silva MD Primary Care Provider [phone] Reason for Visit * Reason Comments Labs Only Encounter Details Date Type Department Care Team (Latest Contact Info) Description 09/10/2024 8:00 AM CDT Clinical Support [facility] [place] [address] [place] [address] Screening for condition (Primary Dx) Social History Tobacco Use Types Packs/Day Years Used Date Smoking Tobacco: Never Smokeless Tobacco: Never Alcohol Use Standard Drinks/Week Comments Yes 0 (1 standard drink = 0.6 oz pur e alcohol) occasionally Comments No Sex and Gender Information Value Date Recorded Sex Assigned at Not on file Legal Sex Female 8:43 AM CDT Gender Identity Not on file Sexual Orientation Not on file documented as of this encounter Last Filed Vital Signs Vital Sign Reading Time Taken Comments Blood Pressure 114/68 09/10/2024 8:24 AM CDT Pulse - - Temperature - - Respiratory Rate - - Oxygen Saturation - - Inhaled Oxygen Concentration - - Weight 88.9 kg (196 lb) 09/10/2024 8:24 AM CDT Height 152.4 cm (5') 09/10/2024 8:24 AM CDT Body Mass Index 38.28 09/10/2024 8:24 AM CDT documented in this encounter Progress Notes * Santiago Baez - 09/10/2024 8:25 AM CDT Patient presents for labs only, drawn from right ac, one stick. Patient tolerated well. documented in this encounter Plan of Treatment Upcoming Encounters Date Type Department Care Team (Late st Contact Info) Description 10/07/2024 10:00 AM CDT Office Visit [facility] Work [facility] [place] [address] [facility] [place] [address] Awilda Saeed, ANP [address] [place] [address] documented as of this encounter Procedures Procedure Name Priority Date/Time Associated Diagnosis Comments CBC WITH DIFFERENTIAL Routine 09/10/2024 7:46 AM CDT Screening for condition TSH Routine 09/10/2024 7:46 AM CDT Screening for condition LIPID PANEL Routine 09/10/2024 7:46 AM CDT Screening for condition COMPREHENSIVE METABOLIC PANEL Routine 09/10/2024 7:46 AM CDT Screening for condition documented in this encounter Results * TSH (09/10/2024 7:46 AM CDT) TSH 3.46 mIU/L [facility] Comment: Reference Range > or = 20 Years 0.40-4.50 Ranges First trimester 0.26-2.66 Second trimester 0.55-2.73 Third trimester 0.43-2.91 Test Performed at: [facility] [place] [address] [place] [address] Nicolasa Chiang Blood 09/10/2024 7:46 AM CDT 09/11/2024 12:20 AM CDT Triny Da Silva MD CHEMISTRY ORDERABLES Final Res ult [facility] [phone] [place] [address] [place] [address] * (ABNORMAL) LIPID PANEL (09/10/2024 7:46 AM CDT) [facility] CHOLESTEROL 246(H) <200 mg/dL [facility] HDL 65 > OR = 50 mg/dL [facility] TRIGLYCERIDE 196(H) <150 mg/dL [facility] LDL CALCULATED 147(H) mg/dL (calc) [facility] Comment: Reference range: <100 Desirable range <100 mg/dL for primary prevention; <70 mg/dL for patients with CHD or diabetic patients with > or = 2 CHD risk factors. LDL-C is now calculated using the Megan calculation, which is a validated novel method providing better accuracy than the Friedewald equation in the estimation of LDL-C. Naresh SS et al. CASEY. 2013;310(19): 5514-5110 (http://education.Zecco/faq/GDA686) CHOL/HDL RATIO 3.8 <5.0 (calc) [facility] Vaugh[facility] NON-HDL CHOLESTEROL 181(H) <130 mg/dL (calc) [facility] Comment: For patients with diabetes plus 1 major ASCVD risk factor, treating to a non-HDL-C goal of <100 mg/dL (LDL-C of <70 mg/dL) is considered a therapeutic option. Test Performed at: [place] [address] [place] [address] Nicolasa Chiang Blood 09/10/2024 7:46 AM CDT 09/11/2024 12:20 AM CDT us Triny Da Silva MD CHEMISTRY ORDERABLES Final Res ult [facility] [phone] [place] [address] [address] [place] [address] * COMPREHENSIVE METABOLIC PANEL (09/10/2024 7:46 AM CDT) [facility] GLUCOSE 79 65 - 99 mg/dL [facility] Vaugh[facility] Comment: Fasting reference interval BUN 12 7 - 25 mg/dL [facility] Vaugh[facility] CREATININE 0.70 0.50 - 0.97 mg/dL [facility] GFR 118 > OR = 60 mL/min/1. 73m2 [facility] andree Vaughan BUN/CREAT RATIO SEE NOTE: 6 - 22 (calc) [facility] Comment: Not Reported: BUN and Creatinine are within reference range. SODIUM 138 135 - 146 mmol/L [facility] POTASSIUM 4.5 3.5 - 5.3 mmol/L [facility] andree Vaughan CHLORIDE 101 98 - 110 mmol/L [facility] andree Vaughan CO2 27 20 - 32 mmol/L [facility] andree Vaughan CALCIUM 9.3 8.6 - 10.2 mg/dL [facility] [employer] andree Vaughan TOTAL PROTEIN 7.5 6.1 - 8.1 g/dL [facility] ALBUMIN 4.2 3.6 - 5.1 g/dL [facility] GLOBULIN 3.3 1.9 - 3.7 g/dL (calc) [facility] Vaughan ALBUMIN/GLOBULIN RATIO 1.3 1.0 - 2.5 (calc) [facility] Vaugh[facility] BILIRUBIN TOTAL 0.3 0.2 - 1.2 mg/dL [facility] andree Vaughan ALKALINE PHOSPHATASE 109 31 - 125 U/L [facility] andree Vaughan AST 21 10 - 30 U/L [facility] andree Vaughan ALT 23 6 - 29 U/L [facility] andree Vauhgan Comment: Test Performed at: [place] [address] [place] [address] Nicolasa Chiang Blood 09/10/2024 7:46 AM CDT 09/11/2024 12:20 AM CDT us Triny Da Silva MD CHEMISTRY ORDERABLES Final Res ult [facility] [phone] [place] [address] [place] [address] * (ABNORMAL) CBC WITH DIFFERENTIAL (09/10/2024 7:46 AM CDT) WBC 8.5 3.8 - 10.8 Thousand/ uL [facility] [employer] andree Vaughan RBC 4.67 3.80 - 5.10 Million/u L [facility] andree Vaughan HEMOGLOBIN 11.1(L) 11.7 - 15.5 g/dL [facility] HEMATOCRIT 37.5 35.0 - 45.0 % [facility] MCV 80.3 80.0 - 100.0 fL [facility] and[facility] Vaughan MCH 23.8(L) 27.0 - 33.0 pg [facility] MCHC 29.6(L) 32.0 - 36.0 g/dL [facility] Comment: For adults, a slight decrease in the calculated MCHC value (in the range of 30 to 32 g/dL) is most likely not clinically significant; however, it should be interpreted with caution in correlation with other red cell parameters and the patient's clinical condition. RDW 15.4(H) 11.0 - 15.0 % [facility] and[facility] Vaughan PLATELETS 535(H) 140 - 400 Thousand/ uL [facility] MPV 9.0 7.5 - 12.5 fL [facility] NEUTROPHIL ABSOLUTE 5,330 1,500 - 7,800 cells/uL [facility] LYMPHOCYTE ABSOLUTE 2,372 850 - 3,900 cells/uL [facility] MONOCYTE ABSOLUTE 553 200 - 950 cells/uL [facility] EOSINOPHIL ABSOLUTE 170 15 - 500 cells/uL [facility] BASOPHILS ABSOLUTE 77 0 - 200 cells/uL [facility] NEUTROPHIL 62.7 % [facility] LYMPHOCYTES 27.9 % [facility] MONOCYTE 6.5 % [facility] EOSINOPHILS 2.0 % [facility] BASOPHILS 0.9 % [facility] Comment: Test Performed at: [place] [address] [place] [address] Nicolasa Chiang Blood 09/10/2024 7:46 AM CDT 09/11/2024 12:20 AM CDT us Triny Da Silva MD HEMATOLOGY ORDERABLES Final Re sult [facility] [phone] [facility] [employer] [facility] [address] [address] [place] [phone] documented in this encounter Visit Diagnoses Diagnosis Screening for condition- Primary Screening for unspecified condition documented in this encounter Additional Health Concerns Assessment Noted Time PHQ-9 Depression Total Score: 2 04/06/20 24 10:00 AM [employer] documented as of this encounter Care Teams Medical Management Specialist Relationship Specialty Start Date End Date Triny Da Silva MD [address] [place] [address] PCP - General Internal Medicine 03/25/24 documented as of this encounter
--- OUTSIDE RECORDS SUMMARY | 2024-09-11 17:43 | XMS_ITS | Referral Summary ---
Author Organization [facility] Address [address] [place] [address] Care Team Providers Care Sub Master Name Role Phone Sourav Cary MD Unavailable [phone] No, Physician Primary Care Provider [phone] Allergies No known active allergies Medications acyclovir (ZOVIRAX) 800 mg tablet TAKE 1 TABLET BY MOUTH FIVE TIMES DAILY NEEDED 08/31/2019 Active ibuprofen (ADVIL,MOTRIN) 800 mg tablet TAKE 1 TABLET BY MOUTH EVERY 6 HOURS WITH FOOD 08/31/2019 Active lidocaine (XYLOCAINE) 5 % ointment APPLY ON THE SKIN RASH TWICE A DAY 08/31/2019 Active ALPRAZolam (XANAX) 0.5 mg tablet Take 1 tablet (0.5 mg total) by mouth nightly as needed Active Abilify 2 mg tablet 04/07/2023 Active cyclobenzaprine (FLEXERIL) 5 mg tablet Take 1 tablet (5 mg total) by mouth every 8 (eight) hours Active hydrOXYzine (ATARAX) 10 mg tablet 04/07/2023 Active sertraline (ZOLOFT) 100 mg tablet Take 1 tablet (100 mg total) by mouth daily 06/18/2022 Active sertraline (ZOLOFT) 50 mg tablet Take 1 tablet (50 mg total) by mouth daily 08/26/2022 Active traMADoL (ULTRAM) 50 mg tablet TAKE 1/2 TABLET BY MOUTH EVERY 8 HOURS NEEDED Active FLUoxetine (PROzac) 20 mg capsule 1 capsule (20 mg total) 02/19/2024 Active Active Problems Problem Noted Date Diagnosed Date Family history of breast cancer 11/13/2022 Encounter for screening mammogram for breast can cer 11/13/2022 Resolved Problems Problem Noted Date Diagnosed Date Resolved Date Breast cancer screening, high risk patient 11/13/2022 06/01/2024 Social History Tobacco Use Types Packs/Day Years Used Date Smoking Tobacco: Former Comments No Sex and Gender Information Value Date Recorded Sex Assigned at Not on file Legal Sex Female 11:08 AM FUDGE CANDY MAKER Gender Identity Female 09/22/2019 2:29 PM CDT Sexual Orientation Straight 09/22/2019 2: 29 PM CDT Last Filed Vital Signs Vital Sign Reading Time Taken Comments Blood Pressure 133/98 06/01/2024 11:12 AM FUDGE CANDY MAKER Pulse 116 06/01/2024 11:12 AM FUDGE CANDY MAKER Temperature 36.7 C (98.1 F) 06/01/2024 11:12 AM FUDGE CANDY MAKER Respiratory Rate 18 06/01/2024 11:12 AM FUDGE CANDY MAKER Oxygen Saturation 99% 06/01/2024 11:12 AM FUDGE CANDY MAKER Inhaled Oxygen Concentration - - Weight 86 kg (189 lb 9.6 oz) 06/01/2024 11:12 AM FUDGE CANDY MAKER Height 152.4 cm (5') 05/20/2023 9:07 AM FUDGE CANDY MAKER Body Mass Index 37.03 05/20/2023 9:07 AM FUDGE CANDY MAKER Plan of Treatment Not on file Procedures Procedure Name Priority Date/Time Associated Diagnosis Comments SCREENING MAMMOGRAM BILATERAL W MELLO Schedule Routine, Read Routine (OP Routine) 06/01/2024 10:58 AM FUDGE CANDY MAKER Breast cancer screening by mammogram from Last 3 Months or Most Recently Relevant to Health Maintenance Results * Screening Mammogram Bilateral W Mello (06/01/2024 10:58 AM FUDGE CANDY MAKER) Anatomical Region Laterality Modality Breast Bilateral Mammography 06/01/2024 11:0 8 AM FUDGE CANDY MAKER Impressions 06/01/2024 11:08 AM FUDGE CANDY MAKER No evidence of malignancy in either breast. FINAL ASSESSMENT: BI-RADS Category 1: Negative. RECOMMENDATION: 1. Annual screening mammography is recommended. 2. Consider breast MRI for supplemental screening given reported strong family history of breast cancer. Electronically signed by: GERDA EMERSON MD Narrative 06/01/2024 11:08 AM FUDGE CANDY MAKER EXAMINATION: BILATERAL SCREENING MAMMOGRAM COMPARISON: All prior mammograms dating back to 2019. TECHNIQUE: Full-field 2D and digital breast tomosynthesis (DBT) images were obtained. CAD was utilized. BREAST PARENCHYMAL COMPOSITION: There are scattered areas of fibroglandular density. FINDINGS: There is no suspicious mass, calcification, or distortion in either breast. Ramya Kelly MD IMG MAMMO PROCEDURES Final Result from Last 3 Months or Most Recently Relevant to Health Maintenance Insurance [employer] Care Teams Sub Master Relationship Specialty Start Date End Date No, Physician PCP - General 03/04/19 Sourav Cary MD [address] [place] [address] Referring Physician Obstetrics and Gynecology 02/25/19
--- OUTSIDE RECORDS SUMMARY | 2024-09-11 17:43 | XMS_ITS | Continuity of Care Document ---
Author Organization [facility] Address [address] [place] [address] Phone Care Team Providers Care Health Information Systems Technician Name Role Phone Rad Fontenot DO Unavailable Unavailable Advance Directives Directive Yes / No Effective Date File Name No Information Encounters Encounter Description Practice Location Reason(s) For Visit Diagnoses Date Provider Providers Copied on Encounter [facility], [address], [place], [place], [id number], [phone] [facility] No Information Corie Mayfield. [address] [place], [address], . tel: [phone] Family History Family Member Type Diagnosis Age At Onset No Information Payers Payer name Insurance type Covered republican ID Authoriza tion(s) Medicaid [facility] [id number] Social History Type Description Quantity Date Captured [...]
--- OUTSIDE RECORDS SUMMARY | 2024-09-11 17:43 | XMS_ITS | Clinical Summary ---
Author Organization [facility] Address [address] [address] [place] [address] Phone Care Team Providers Care Staff Internist Office Based Only Name Role Phone Triny Da Silva MD Primary Care Provider [phone] Allergies No known active allergies Medications ALPRAZolam (XANAX) 0.5 mg tablet Take 0.5 mg by mouth nightly as needed. Active FLUoxetine (PROzac) 20 mg capsule TAKE 1 CAPSULE BY MOUTH EVERY DAY IN THE MORNING FOR DEPRESSION/A NXIETY FOR 30 DAYS 02/19/2024 Active ARIPiprazole (ABILIFY) 15 mg tablet TAKE 0.5 TABLETS EVERY DAY BY ORAL ROUTE IN THE MORNING FOR 30 DAYS. Active hydrOXYzine HCL (ATARAX) 25 mg tablet 03/17/2024 Active cyclobenzaprine (FLEXERIL) 5 mg Tablet Take 5 mg by mouth every 8 hours. Active Active Problems Problem Noted Date Diagnosed Date Family history of breast cancer in mother- age 4 0 04/06/2024 Family history of early CAD 04/06/2024 Overview (04/06/2024): Fatal [place], mother, age 60. Heavy alcohol and tobacco user. Skin lesion of right lower extremity 03/25/2024 Positive screening for depre ssion on 9-item Patient Health Questionnaire (PHQ-9) 03/25/2024 Obesity (BMI 35.0-39.9 without comorbidity) 02/19 Candidiasis, intertriginous 02/28/2023 Encounters Date Type Department Care Team Description 09/10/2024 8:00 AM CDT Clinical Support [facility] [address] [place] [address] Screening for condition (Primary Dx) 07/20/2024 External Device Data STL ABSTRACTION Provider, Abstract 06/26/2024 External Device Data STL ABSTRACTION Provider, Abstract 06/25/2024 External Device Data STL ABSTRACTION Provider, Abstract 06/22/2024 External Device Data STL ABSTRACTION Provider, Abstract from Last 3 Months Family History Medical History Relation Name Comments No Known Problems Daughter Diabetes Father Heart Attack Maternal Grandfather No Known Problems Maternal Grandmother Breast Cancer Mother Heart Disease Mother fatal [place] Other Paternal Grandfather heart a nd kidney [...] Pressure 114/68 09/10/2024 8:24 AM CDT Pulse 80 04/06/2024 9:32 AM SOFTWARE BUSINESS ANALYST Temperature 36.8 C (98.3 F) 04/06/2024 9:32 AM SOFTWARE BUSINESS ANALYST Respiratory Rate 18 04/06/2024 9:32 AM SOFTWARE BUSINESS ANALYST Oxygen Saturation 98% 04/06/2024 9:32 AM SOFTWARE BUSINESS ANALYST Inhaled Oxygen Concentration - - Weight 88.9 kg (196 lb) 09/10/2024 8:24 AM CDT Height 152.4 cm (5') 09/10/2024 8:24 AM CDT Body Mass Index 38.28 09/10/2024 8:24 AM CDT Plan of Treatment Upcoming Encounters Date Type Department Care Team (Late st Contact Info) Description 10/07/2024 10:00 AM CDT Office Visit [facility] at Work [facility] [address] [place] [address] Awilda Saeed, ANP [address] [place] [address] Health Maintenance Due Date Last Done Comments HEPATITIS B VACCINES (1 of 3 - 19+ 3-dose series) 08/28/2011 HPV/Cotest (21-29) 2013 CERVICAL CANCER SCREENING 2022 HPV/Cotest (30-65) 2022 PAP SMEAR 2022 DTAP/TDAP/TD VACCINES (2 - T d [...] 09/10/2024 7:46 AM CDT Screening for condition from Last 3 Months Results * (ABNORMAL) CBC WITH DIFFERENTIAL (09/10/2024 7:46 AM CDT) WBC 8.5 3.8 - 10.8 Thousand/ uL [facility] RBC 4.67 3.80 - 5.10 Million/u L [facility] HEMOGLOBIN 11.1(L) 11.7 - 15.5 g/dL [facility] HEMATOCRIT 37.5 35.0 - 45.0 % [facility] MCV 80.3 80.0 - 100.0 fL [facility] MCH 23.8(L) 27.0 - 33.0 pg [facility] [...] 15.4(H) 11.0 - 15.0 % [facility] PLATELETS 535(H) 140 - 400 Thousand/ uL [...] [facility] t Clement Comment: Test Performed at: [place] [address] [place] [address] [facility] Romo Vo Blood 09/10/2024 7:46 AM CDT 09/11/2024 12:20 AM CDT us Triny Da Silva MD HEMATOLOGY ORDERABLES Final Re sult [facility] [phone] [place] [address] [place] [address] * TSH (09/10/2024 7:46 AM CDT) TSH 3.46 mIU/L [facility] andree Vaughan Comment: Reference Range > or = 20 Years 0.40-4.50 Ranges First trimester 0.26-2.66 Second trimester 0.55-2.73 Third trimester 0.43-2.91 Test Performed at: [place] [address] [address] [place] [address] [facility] Romo Vo Blood 09/10/2024 7:46 AM CDT 09/11/2024 12:20 AM CDT Triny Da Silva MD CHEMISTRY ORDERABLES Final Res ult Performing Organization Address City/[facility]/RUST Code Phone Number [facility] [phone] [place] [address] [place] [address] * (ABNORMAL) LIPID PANEL (09/10/2024 7:46 AM CDT) CHOLESTEROL 246(H) <200 mg/dL [employer] andree Vaughan HDL 65 > OR = 50 mg/dL [facility] andree Vaughan TRIGLYCERIDE 196(H) <150 mg/dL [facility] Vaughan LDL CALCULATED 147(H) mg/dL (calc) [facility] Vaughan Comment: Reference range: <100 Desirable range <100 mg/dL for primary prevention; <70 mg/dL for patients with CHD or diabetic patients with > or = 2 CHD risk factors. LDL-C is now calculated using the Megan calculation, which is a validated novel method providing better accuracy than the Friedewald equation in the estimation of LDL-C. Naresh MAN et al. CASEY. 2013;310(19): 7144-9905 (http://education.Argyle Social/faq/MXS812) CHOL/HDL RATIO 3.8 <5.0 (calc) [facility] Vaughan NON-HDL CHOLESTEROL 181(H) <130 mg/dL (calc) [facility] Vaughan Comment: For patients with diabetes plus 1 major ASCVD risk factor, treating to a non-HDL-C goal of <100 mg/dL (LDL-C of <70 mg/dL) is considered a therapeutic option. Test Performed at: [place] [address] [place] [address] Nicolasa Chiang Blood 09/10/2024 7:46 AM CDT 09/11/2024 12:20 AM CDT Triny Da Silva MD CHEMISTRY ORDERABLES Final Res ult Performing Organization Address City/[facility]/ZIP Code Phone Number [facility] [phone] [place] [address] [address] [place] [phone] * COMPREHENSIVE METABOLIC PANEL (09/10/2024 7:46 AM CDT) GLUCOSE 79 65 - 99 mg/dL [facility] JessicaAmy Vaughan Comment: Fasting reference interval BUN 12 7 - 25 mg/dL [facility] andree Vaughan CREATININE 0.70 0.50 - 0.97 mg/dL [facility] UI RobotAmy Vaughan GFR 118 > OR = 60 mL/min/1. 73m2 [facility] BUN/CREAT RATIO SEE NOTE: (calc) [facility] UI RobotAmy Vaughan Comment: Not Reported: BUN and Creatinine are within reference range. SODIUM 138 135 - 146 mmol/L [facility] andree Vaughan POTASSIUM 4.5 3.5 - 5.3 mmol/L [facility] andree Vaughan CHLORIDE 101 98 - 110 mmol/L [facility] CO2 27 20 - 32 mmol/L [facility] CALCIUM 9.3 8.6 - 10.2 mg/dL [facility] TOTAL PROTEIN 7.5 6.1 - 8.1 g/dL [facility] ALBUMIN 4.2 3.6 - 5.1 g/dL [facility] GLOBULIN 3.3 1.9 - 3.7 g/dL (calc) [facility] JessicaAmy Vaughan ALBUMIN/GLOBULIN RATIO 1.3 1.0 - 2.5 (calc) [facility] [employer] andree Vaughan BILIRUBIN TOTAL 0.3 0.2 - 1.2 mg/dL [facility] andree Vaughan ALKALINE PHOSPHATASE 109 31 - 125 U/L [facility] AST 21 10 - 30 U/L [facility] ALT 23 6 - 29 U/L [facility] andree Vaughan Comment: Test Performed at: [facility] [address] [place] [address] Nicolasa Chiang Blood 09/10/2024 7:46 AM CDT 09/11/2024 12:20 AM CDT us Triny Da Silva MD CHEMISTRY ORDERABLES Final Res ult [facility] [phone] [facility] [address] [place] [address] from Last 3 Months Insurance * Guarantor: [employer] (C) Account Type Relation to Patient Date of Phone Billing Address Corporate Employer ATTN: CASSANDRA ERICKSON [address] [address] [employer]LEGIANCE OPEN ACCESS Care Teams Staff Internist Office Based Only Relationship Specialty Start Date End Date Triny Da Silva MD [address] [place] [address] PCP - General Internal Medicine 03/25/24
--- OUTSIDE RECORDS SUMMARY | 2024-09-11 17:43 | XMS_ITS | Clinical Summary ---
Author Organization [facility] Address [address] [place] [address] Care Team Providers Care Cardiac Rehabilitation Specialist Name Role Phone Sourav Cary MD Unavailable [phone] No, Physician Primary Care Provider [phone] Allergies No known active allergies Medications acyclovir [...] cancer screening, high risk patient 11/13/2022 06/01/2024 Surgical History Surgery Date Site/Laterality Comments BREAST BIOPSY 04/21/2018 - 04/20/2019 Right benign, punch biopsy TUBAL LIGATION 10/18/2020 Medical History Medical History Date Comments Hypertension Depression Family History Medical History Relation Name Comments Breast cancer Mother Breast cancer Mother's Sister Endometrial cancer Neg Hx Ovarian cancer Neg Hx Thyroid cancer Neg Hx Relation Name Status Comments Mother Mother's Sister Social History Tobacco Use Types Packs/Day Years Used Date Smoking Tobacco: Former Comments No Sex and Gender Information Value Date Recorded Sex Assigned at Not on file Legal Sex Female 11:08 AM HOST/HOSTESS RESTAURANT Gender Identity Female 09/22/2019 2:29 PM CDT Sexual Orientation Straight 09/22/2019 2: 29 PM CDT Obstetrics History Para Term AB IAB SAB Ectopic Multiple Livin g Live Births 2 2 2 Date Outcome GA Total Labor Labor/2nd/3rd Weight Sex Type Anes PTL Nyasia A1 A5 Name Clin Term Term Last Filed Vital Signs Vital Sign Reading Time Taken Comments Blood Pressure 133/98 06/01/2024 11:12 AM HOST/HOSTESS RESTAURANT Pulse 116 06/01/2024 11:12 AM HOST/HOSTESS RESTAURANT Temperature 36.7 C (98.1 F) 06/01/2024 11:12 AM HOST/HOSTESS RESTAURANT Respiratory Rate 18 06/01/2024 11:12 AM HOST/HOSTESS RESTAURANT Oxygen Saturation 99% 06/01/2024 11:12 AM HOST/HOSTESS RESTAURANT Inhaled Oxygen Concentration - - Weight 86 kg (189 lb 9.6 oz) 06/01/2024 11:12 AM HOST/HOSTESS RESTAURANT Height 152.4 cm (5') 05/20/2023 9:07 AM HOST/HOSTESS RESTAURANT Body Mass Index 37.03 05/20/2023 9:07 AM HOST/HOSTESS RESTAURANT Plan of Treatment Health Maintenance Due Date Last Done Comments Cervical Cancer Screening 1992 Depression Screening 1992 Hepatitis C Screening 1992 Varicella Vaccines (1 of 2 - 13+ 2-dose series) 2005 Regular Well Visit/Exam 18-64 2010 DTaP/Tdap/Td Vaccine (8 - Td or Tdap) 05/24/2023 05/24/2013, 10/24/2006, 10/01/2002, Additional history exists Covid-19 Vaccine ( season) 2023 03/09/2021, 02/16/2021 Influenza Vaccine (Season Ended) 2024 05/24/2013, 03/09/2010 Breast Cancer Screening-Mammogram 06/01/2025 06/01/2024, 06/03/2023, 04/01/2019 Hepatitis B Screening Completed 02/27/1993 , 1992, 1992 HPV Vaccines Completed 07/01/2007, 12/20, 10/24/2006 Pneumococcal vaccine <65 Aged Out No longer eligible based on patient's age to complete this topic Procedures Procedure Name Priority Date/Time Associated Diagnosis Comments SCREENING MAMMOGRAM BILATERAL W MELLO Schedule Routine, Read Routine (OP Routine) 06/01/2024 10:58 AM HOST/HOSTESS RESTAURANT Breast cancer screening by mammogram from Last 3 Months or Most Recently Relevant to Health Maintenance Results * Screening Mammogram Bilateral W Mello (06/01/2024 10:58 AM HOST/HOSTESS RESTAURANT) Anatomical Region Laterality Modality Breast Bilateral Mammography 06/01/2024 11:0 8 AM HOST/HOSTESS RESTAURANT Impressions 06/01/2024 11:08 AM HOST/HOSTESS RESTAURANT No evidence of malignancy in either breast. FINAL ASSESSMENT: BI-RADS Category 1: Negative. RECOMMENDATION: 1. Annual screening mammography is recommended. 2. Consider breast MRI for supplemental screening given reported strong family history of breast cancer. Electronically signed by: GERDA EMERSON MD Narrative 06/01/2024 11:08 AM HOST/HOSTESS RESTAURANT EXAMINATION: BILATERAL SCREENING MAMMOGRAM COMPARISON: All prior [...] Most Recently Relevant to Health Maintenance Insurance [employer] AL[employer]GIANCE C[employer] ALLEGIANCE Care Teams Cardiac Rehabilitation Specialist Relationship Specialty Start Date End Date No, Physician PCP - General 03/04/19 Sourav Cary MD [address] [place] [address] Referring Physician Obstetrics and Gynecology 02/25/19
--- NOTE | 2024-09-11 20:07 | ECG_ITS ---
Test Date: 2024-09-11 20:24:05 Measurements Intervals Hewitt Rate: 93 P: 50 MD: 137 QRS: 15 QRSD: 76 T: 18 QT: 346 QTc: 432 Interpretive Statements SINUS RHYTHM No previous ECG available for comparison Electronically Signed On 09-12-2024 10:08:46 CDT by Armen Dorado M.D.
[2024-09-11 20:17] VITALS: BP 141/97; PULSE 104; PULSE 96; RESP 15; O2SAT 100
--- OUTSIDE RECORDS SUMMARY | 2024-09-11 20:17 | XMS_ITS | Clinical Summary ---
Author Organization [facility] Address [address] [address] [place] [address] Phone Care Team Providers Care Research Agricultural Engineer Name Role Phone Triny Da Silva MD Primary Care Provider [phone] Allergies No known active allergies Medications ALPRAZolam [...] of early CAD 04/06/2024 Overview (04/06/2024): Fatal CA, mother, age 60. Heavy alcohol and tobacco user. Skin lesion of right lower extremity 03/25/2024 Positive screening for depre ssion on 9-item Patient Health Questionnaire (PHQ-9) 03/25/2024 Obesity (BMI 35.0-39.9 without comorbidity) 02/19 Candidiasis, intertriginous 02/28/2023 Encounters Date Type Department Care Team Description 09/10/2024 8:00 AM CDT Clinical Support [facility] at [facility] [employer] [address] [place] [address] Screening for condition (Primary Dx) [...] Breast Cancer Mother Heart Disease Mother fatal CA Other Paternal Grandfather heart a nd kidney [...] AM CDT Pulse 80 04/06/2024 9:32 AM SURGICAL INSTRUMENTS INSPECTOR Temperature 36.8 C (98.3 F) 04/06/2024 9:32 AM SURGICAL INSTRUMENTS INSPECTOR Respiratory Rate 18 04/06/2024 9:32 AM SURGICAL INSTRUMENTS INSPECTOR Oxygen Saturation 98% 04/06/2024 9:32 AM SURGICAL INSTRUMENTS INSPECTOR Inhaled Oxygen Concentration - - Weight 88.9 kg (196 lb) 09/10/2024 8:24 AM CDT Height 152.4 cm (5') 09/10/2024 8:24 AM CDT Body Mass Index 38.28 09/10/2024 8:24 AM CDT Plan of Treatment Upcoming Encounters Date Type Department Care Team (Late st Contact Info) Description 10/07/2024 10:00 AM CDT Office Visit [facility] at Work [employer] [address] [place] [address] Awilda Saeed, ANP [address] [place] [address] Health Maintenance Due Date Last [...] Diagnostics-S t Clement Comment: Test Performed at: [facility] [place] [address] [place] [address] [facility] Rom[facility] Vo Blood 09/10/2024 7:46 AM CDT 09/11/2024 12:20 AM CDT us Triny Da Silva MD HEMATOLOGY ORDERABLES Final Re sult [facility] [phone] [facility] [address] [place] [address] * TSH (09/10/2024 7:46 AM CDT) TSH 3.46 mIU/L [facility] andree Vaughan Comment: Reference Range > or = 20 Years 0.40-4.50 Ranges First trimester 0.26-2.66 Second trimester 0.55-2.73 Third trimester 0.43-2.91 Test Performed at: [facility] [address] [place] [address] [facility] Romo Vo Blood 09/10/2024 7:46 AM CDT 09/11/2024 12:20 AM CDT Triny Da Silva MD CHEMISTRY ORDERABLES Final Res ult Performing Organization Address [facility] Code Phone Number [facility] [phone] [facility] [address] [place] [address] * (ABNORMAL) LIPID PANEL (09/10/2024 7:46 AM CDT) CHOLESTEROL 246(H) <200 mg/dL [facility] andree Vaughan HDL 65 > OR = 50 mg/dL [facility] andree Vaughan TRIGLYCERIDE 196(H) <150 mg/dL [facility] Vaughan LDL CALCULATED 147(H) mg/dL (calc) [facility] Vaughan Comment: Reference range: <100 Desirable range <100 mg/dL for primary prevention; <70 mg/dL for patients with CHD or diabetic patients with > or = 2 CHD risk factors. LDL-C is now calculated using the Megan calculation, which is a validated novel method providing better accuracy than the Friedewald equation in the estimation of LDL-C. Naresh MAN et al. CASEY. 2013;310(19): 1242-9410 (http://education.Vicci Mobile Merch/faq/UHF487) CHOL/HDL RATIO 3.8 <5.0 (calc) [facility] Vaughan NON-HDL CHOLESTEROL 181(H) <130 mg/dL (calc) [facility] Vaughan Comment: For patients with diabetes plus 1 major ASCVD risk factor, treating to a non-HDL-C goal of <100 mg/dL (LDL-C of <70 mg/dL) is considered a therapeutic option. Test Performed at: [facility] [address] [place] [address] Nicolasa Chiang Blood 09/10/2024 7:46 AM CDT 09/11/2024 12:20 AM CDT Triny Da Silva MD CHEMISTRY ORDERABLES Final Res ult Performing Organization Address City[facility]/ZIP Code Phone Number [facility] [phone] [address] [address] [address] [place] [phone] * COMPREHENSIVE METABOLIC PANEL (09/10/2024 7:46 AM CDT) GLUCOSE 79 65 - 99 mg/dL [facility] JessicaAmy Vaughan Comment: Fasting reference interval BUN 12 7 - 25 mg/dL [facility] andree aVughan CREATININE 0.70 0.50 - 0.97 mg/dL [facility]Amy Vaughan GFR 118 > OR = 60 mL/min/1. 73m2 [facility] Corporation[facility] Vaughan BUN/CREAT RATIO SEE NOTE: (calc) [facility]ra[facility]Amy Vaughan Comment: Not Reported: BUN and Creatinine are within reference range. SODIUM 138 135 - 146 mmol/L [facility] andree Vaughan POTASSIUM 4.5 3.5 - 5.3 mmol/L [facility] andree Vaughan CHLORIDE 101 98 - 110 mmol/L [facility] Clement CO2 27 20 - 32 mmol/L [facility] Clement CALCIUM 9.3 8.6 - 10.2 mg/dL [facility] Clement TOTAL PROTEIN 7.5 6.1 - 8.1 g/dL [facility] [place] [facility] ALBUMIN 4.2 3.6 - 5.1 g/dL [facility] Clement GLOBULIN 3.3 1.9 - 3.7 g/dL (calc) [facility] JessicaAmy Vaughan ALBUMIN/GLOBULIN RATIO 1.3 1.0 - 2.5 (calc) [facility] andree Vaughan BILIRUBIN TOTAL 0.3 0.2 - 1.2 mg/dL [facility] andree Vaughan ALKALINE PHOSPHATASE 109 31 - 125 U/L [facility] Clement AST 21 10 - 30 U/L [facility] Clement ALT 23 6 - 29 U/L [facility] andree Vaughan Comment: Test Performed at: [facility] [address] [address] [place] [address] Nicolasa Chiang Blood 09/10/2024 7:46 AM CDT 09/11/2024 12:20 AM CDT us Triny Da Silva MD CHEMISTRY ORDERABLES Final Res ult [facility] [phone] [facility] [address] [place] [address] from Last 3 Months Insurance * Guarantor: [employer] Horner (C) Account Type Relation to Patient Date of Phone Billing Address Corporate Employer ATTN: CASSANDRA ERICKSON [address] [address] ALLEGIANCE OPEN ACCESS Care Teams Research Agricultural Engineer Relationship Specialty Start Date End Date Triny Da Silva MD [address] [place] [address] PCP - General Internal Medicine 03/25/24
--- OUTSIDE RECORDS SUMMARY | 2024-09-11 20:17 | XMS_ITS | Continuity of Care Document ---
Author Organization [facility] Address [address] [place] [address] Phone Care Team Providers Care Rate Reviewer Name Role Phone Rad Fontenot DO Unavailable Unavailable Advance Directives Directive Yes / No Effective Date File Name No Information Encounters Encounter Description Practice Location Reason(s) For Visit Diagnoses Date Provider Providers Copied on Encounter [facility], [address], [place], [place], [id number], [phone] [facility] [place] No Information Corie Mayfield. [address] [place], [address], . tel: [phone] Family History Family Member Type Diagnosis Age At Onset No Information Payers Payer name Insurance type Covered green party ID Authoriza tion(s) Medicaid [facility] [id number] Social History Type Description Quantity Date Captured [...]
--- OUTSIDE RECORDS SUMMARY | 2024-09-11 20:17 | XMS_ITS | Encounter Summary ---
Author Organization [facility] Address [address] [place] [address] Care Team Providers Care Mechanic Sound Technician Name Role Phone Triny Da Silva MD Primary Care Provider [phone] Reason for Visit * Reason Comments Labs Only Encounter Details Date Type Department Care Team (Latest Contact Info) Description 09/10/2024 8:00 AM CDT Clinical Support [facility] [employer] [address] [place] [address] Screening for condition (Primary Dx) [...] CDT Office Visit [facility] at [facility] [employer] [address] [address] [place] [address] Awilda Saeed, ANP [address] [place] [address] documented as of this encounter [...] (09/10/2024 7:46 AM CDT) TSH 3.46 mIU/L [facility] Comment: Reference Range > or = 20 Years 0.40-4.50 Ranges First trimester 0.26-2.66 Second trimester 0.55-2.73 Third trimester 0.43-2.91 Test Performed at: [facility] [place] [address] [place] [address] Nicolasa Chiang Blood 09/10/2024 7:46 AM CDT 09/11/2024 12:20 AM CDT Triny Da Silva MD CHEMISTRY ORDERABLES Final Res ult [facility] [phone] [place] [place] [address] * (ABNORMAL) LIPID PANEL (09/10/2024 7:46 AM CDT) [facility] CHOLESTEROL 246(H) <200 mg/dL [facility] HDL 65 > OR = 50 mg/dL [facility] TRIGLYCERIDE 196(H) <150 mg/dL [facility] LDL CALCULATED 147(H) mg/dL (calc) [facility]Leanne Vaughan Comment: Reference range: <100 Desirable range <100 mg/dL for primary prevention; <70 mg/dL for patients with CHD or diabetic patients with > or = 2 CHD risk factors. LDL-C is now calculated using the Megan calculation, which is a validated novel method providing better accuracy than the Friedewald equation in the estimation of LDL-C. Naresh SS et al. CASEY. 2013;310(19): 1294-5093 (http://education.Snoball/faq/EDV008) CHOL/HDL RATIO 3.8 <5.0 (calc) [facility] LopezAmy Vaughan NON-HDL CHOLESTEROL 181(H) <130 mg/dL (calc) [facility] Comment: For patients with diabetes plus 1 major ASCVD risk factor, treating to a non-HDL-C goal of <100 mg/dL (LDL-C of <70 mg/dL) is considered a therapeutic option. Test Performed at: [facility] [place] [address] [place] [address] Nicolasa Chiang Blood 09/10/2024 7:46 AM CDT 09/11/2024 12:20 AM CDT us Triny Da Silva MD CHEMISTRY ORDERABLES Final Res ult [facility] [phone] [address] [address] [place] [address] * COMPREHENSIVE METABOLIC PANEL (09/10/2024 7:46 AM CDT) [facility] GLUCOSE 79 65 - 99 mg/dL S[facility] LopezAmy Vaughan Comment: Fasting reference interval BUN 12 7 - 25 mg/dL [facility] Vaughan CREATININE 0.70 0.50 - 0.97 mg/dL [facility] Vaughan GFR 118 > OR = 60 mL/min/1. 73m2 [facility] andree Vaughan BUN/CREAT RATIO SEE NOTE: 6 - 22 (calc) [facility] Vaughan Comment: Not Reported: BUN and Creatinine are within reference range. SODIUM 138 135 - 146 mmol/L [facility] Vaughan POTASSIUM 4.5 3.5 - 5.3 mmol/L [facility] andree Vaughan CHLORIDE 101 98 - 110 mmol/L [facility] andree Vaughan CO2 27 20 - 32 mmol/L [facility] andree Vaughan CALCIUM 9.3 8.6 - 10.2 mg/dL [facility] andree Vaughan TOTAL PROTEIN 7.5 6.1 - 8.1 g/dL [facility] ALBUMIN 4.2 3.6 - 5.1 g/dL [facility] Clement GLOBULIN 3.3 1.9 - 3.7 g/dL (calc) [facility] Vaughan ALBUMIN/GLOBULIN RATIO 1.3 1.0 - 2.5 (calc) [facility] Vaugh[facility] BILIRUBIN TOTAL 0.3 0.2 - 1.2 mg/dL [facility] andree Vaughan ALKALINE PHOSPHATASE 109 31 - 125 U/L [facility] andree Vaughan AST 21 10 - 30 U/L [facility] andree Vaughan ALT 23 6 - 29 U/L [facility] andree Vaughan Comment: Test Performed at: [facility] [place] [address] [place] [address] Nicolasa Chiang Blood 09/10/2024 7:46 AM CDT 09/11/2024 12:20 AM CDT us Triny Da Silva MD CHEMISTRY ORDERABLES Final Res ult [facility] [phone] [address] [place] [address] * (ABNORMAL) CBC WITH DIFFERENTIAL (09/10/2024 7:46 AM CDT) WBC 8.5 3.8 - 10.8 Thousand/ uL [facility] andree Vaughan RBC 4.67 3.80 - 5.10 Million/u L [facility] andree Vaughan HEMOGLOBIN 11.1(L) 11.7 - 15.5 g/dL [facility] HEMATOCRIT 37.5 35.0 - 45.0 [...] Diagnostics-S t Clement Comment: Test Performed at: [facility] [place] [address] [place] [address] Nicolasa Chiang Blood 09/10/2024 7:46 AM CDT 09/11/2024 12:20 AM CDT us Triny Da Silva MD HEMATOLOGY ORDERABLES Final Re sult [facility] [phone] [facility] [place] [address] [address] [place] [address] documented in this encounter Visit Diagnoses Diagnosis Screening for condition- Primary Screening for unspecified condition documented in this encounter Additional Health Concerns Assessment Noted Time PHQ-9 Depression Total Score: 2 04/06/20 24 10:00 AM ROUND KILN DRAWER documented as of this encounter Care Teams Mechanic Sound Technician Relationship Specialty Start Date End Date Triny Da Silva MD [address] [place] [address] PCP - General Internal Medicine 03/25/24 documented as of this encounter
--- OUTSIDE RECORDS SUMMARY | 2024-09-11 20:17 | XMS_ITS | Referral Summary ---
Author Organization [facility] Address [address] [place] [address] Care Team Providers Care Violin Repairer Name Role Phone Sourav Cary MD Unavailable [phone] No, Physician Primary Care Provider [phone] Allergies No known active allergies Medications acyclovir [...] on file Legal Sex Female 11:08 AM MASTER DYER Gender Identity Female 09/22/2019 2:29 PM CDT Sexual Orientation Straight 09/22/2019 2: 29 PM CDT Last Filed Vital Signs Vital Sign Reading Time Taken Comments Blood Pressure 133/98 06/01/2024 11:12 AM MASTER DYER Pulse 116 06/01/2024 11:12 AM MASTER DYER Temperature 36.7 C (98.1 F) 06/01/2024 11:12 AM MASTER DYER Respiratory Rate 18 06/01/2024 11:12 AM MASTER DYER Oxygen Saturation 99% 06/01/2024 11:12 AM MASTER DYER Inhaled Oxygen Concentration - - Weight 86 kg (189 lb 9.6 oz) 06/01/2024 11:12 AM MASTER DYER Height 152.4 cm (5') 05/20/2023 9:07 AM MASTER DYER Body Mass Index 37.03 05/20/2023 9:07 AM MASTER DYER Plan of Treatment Not on file Procedures Procedure Name Priority Date/Time Associated Diagnosis Comments SCREENING MAMMOGRAM BILATERAL W MELLO Schedule Routine, Read Routine (OP Routine) 06/01/2024 10:58 AM MASTER DYER Breast cancer screening by mammogram from Last 3 Months or Most Recently Relevant to Health Maintenance Results * Screening Mammogram Bilateral W Mello (06/01/2024 10:58 AM MASTER DYER) Anatomical Region Laterality Modality Breast Bilateral Mammography 06/01/2024 11:0 8 AM MASTER DYER Impressions 06/01/2024 11:08 AM MASTER DYER No evidence of malignancy in either breast. FINAL ASSESSMENT: BI-RADS Category 1: Negative. RECOMMENDATION: 1. Annual screening mammography is recommended. 2. Consider breast MRI for supplemental screening given reported strong family history of breast cancer. Electronically signed by: GERDA EMERSON MD Narrative 06/01/2024 11:08 AM MASTER DYER EXAMINATION: BILATERAL SCREENING MAMMOGRAM COMPARISON: All prior [...] Most Recently Relevant to Health Maintenance Insurance [employer] ALLEGIANCE CIG[employer] ALLEGIANCE Care Teams Violin Repairer Relationship Specialty Start Date End Date No, Physician PCP - General 03/04/19 Sourav Cary MD [address] [place] [address] Referring Physician Obstetrics and Gynecology 02/25/19
--- OUTSIDE RECORDS SUMMARY | 2024-09-11 20:17 | XMS_ITS | Clinical Summary ---
Author Organization [facility] Address [address] [place] [address] Care Team Providers Care Appraiser Name Role Phone Sourav Cary MD Unavailable [phone], Physician Primary Care Provider [phone] Allergies No known active allergies Medications acyclovir [...] on file Legal Sex Female 11:08 AM DIET TECHNICIAN REGISTERED Gender Identity Female 09/22/2019 2:29 PM CDT [...] Comments Blood Pressure 133/98 06/01/2024 11:12 AM DIET TECHNICIAN REGISTERED Pulse 116 06/01/2024 11:12 AM DIET TECHNICIAN REGISTERED Temperature 36.7 C (98.1 F) 06/01/2024 11:12 AM DIET TECHNICIAN REGISTERED Respiratory Rate 18 06/01/2024 11:12 AM DIET TECHNICIAN REGISTERED Oxygen Saturation 99% 06/01/2024 11:12 AM DIET TECHNICIAN REGISTERED Inhaled Oxygen Concentration - - Weight 86 kg (189 lb 9.6 oz) 06/01/2024 11:12 AM DIET TECHNICIAN REGISTERED Height 152.4 cm (5') 05/20/2023 9:07 AM DIET TECHNICIAN REGISTERED Body Mass Index 37.03 05/20/2023 9:07 AM DIET TECHNICIAN REGISTERED Plan of Treatment Health Maintenance Due Date [...] Read Routine (OP Routine) 06/01/2024 10:58 AM DIET TECHNICIAN REGISTERED Breast cancer screening by mammogram from Last 3 Months or Most Recently Relevant to Health Maintenance Results * Screening Mammogram Bilateral W Mello (06/01/2024 10:58 AM DIET TECHNICIAN REGISTERED) Anatomical Region Laterality Modality Breast Bilateral Mammography 06/01/2024 11:0 8 AM DIET TECHNICIAN REGISTERED Impressions 06/01/2024 11:08 AM DIET TECHNICIAN REGISTERED No evidence of malignancy in either breast. FINAL ASSESSMENT: BI-RADS Category 1: Negative. RECOMMENDATION: 1. Annual screening mammography is recommended. 2. Consider breast MRI for supplemental screening given reported strong family history of breast cancer. Electronically signed by: GERDA EMERSON MD Narrative 06/01/2024 11:08 AM DIET TECHNICIAN REGISTERED EXAMINATION: BILATERAL SCREENING MAMMOGRAM COMPARISON: All prior [...] Insurance [employer] ALLEGIANCE CIG[employer] ALLEGIANCE Care Teams Appraiser Relationship Specialty Start Date End Date No, Physician PCP - General 03/04/19 Sourav Cary MD [address] [place] [address] Referring Physician Obstetrics and Gynecology 02/25/19
--- OUTSIDE RECORDS SUMMARY | 2024-09-11 20:17 | XMS_ITS | Clinical Summary ---
Author Organization [facility] Address [address] [place] [address] Care Team Providers Care Door Fitter Name Role Phone Unavailable Primary Care Provider Unavailabl e Source Comments [facility],non-owned Affiliates and Associated Physician Practices is amultiple site organization consisting of ambulatory clinics and hospital sitesin [place], [place], [place] and [place]. This disclosure is being madepursuant to the Care Everywhere program and may not contain all information available regarding this patient. Last updated 18.[facility] [facility] Allergies No known active allergies Medications * [...] Valtrex Assessment & Plan (06/14/2020 10:20 AM QUALITY SYSTEM MANAGER): Sabrina reports that she had her 1st [...] 1st Assessment & Plan (06/14/2020 10:21 AM QUALITY SYSTEM MANAGER): Sabrina remains at risk for gestational hypertension. She never started aspirin for preeclampsia risk reduction. Shingles 08/20/2019 Assessment & Plan (06/14/2020 10:19 AM QUALITY SYSTEM MANAGER): Sabrina does not have a current outbreak [...] on file Legal Sex Female 3:22 PM QUALITY SYSTEM MANAGER Gender Identity Not on file Sexual Orientation Not on file Last Filed Vital Signs Vital Sign Reading Time Taken Comments Blood Pressure 125/76 06/14/2020 9:15 AM QUALITY SYSTEM MANAGER Pulse 96 06/14/2020 9:15 AM QUALITY SYSTEM MANAGER Temperature 36.6 C (97.8 F) 06/14/2020 9:15 AM QUALITY SYSTEM MANAGER Respiratory Rate - - Oxygen Saturation - - Inhaled Oxygen Concentration - - Weight 80.3 kg (177 lb) 06/14/2020 9:15 AM QUALITY SYSTEM MANAGER Height 152.4 cm (5') 06/14/2020 9:15 AM QUALITY SYSTEM MANAGER Body Mass Index 34.57 06/14/2020 9:15 AM QUALITY SYSTEM MANAGER Plan of Treatment Health Maintenance Due Date [...]
--- NOTE | 2024-09-11 20:40 | ED_ITS ---
HPI - Chest Pain General Chief Complaint: Chest Pain Stated Complaint: chest pain rt side chest x 1 week Time Seen by Provider: 09/11/24 20:09 History of Present Illness HPI narrative: Patient is a 34-year-old female who presents to the ER with right- sided chest pain. She reports she has had chest pain intermittently for over a month but over the last week it has become more frequent. Today patient was having many episodes of chest pain so she decided to come in for evaluation. Patient endorses mild shortness of breath, mild congestion, and lightheadedness. She denies any wheezing, lower extremity edema, or recent fevers. Patient reports she drinks a monster drink every day that she works, but denies frequent alcohol use. She reports she had a history of -induced hypertension and hyperlipidemia. Patient denies any chance of reporting I have had a tubal ligation. Related Data Home Medications ?Medication ?Instructions ?Recorded ?Confirmed ?Last Taken ?Type sertraline 50 mg tablet 50 mg PO DAILY 09/11/20 12/04/20 09/21/20 History Allergies Allergy/AdvReac Type Severity Reaction Status Date / Time No Known Allergies Allergy Verified 05/18/24 09:18 Review of Systems 2 Review of Systems: All systems reviewed & are unremarkable except as noted in HPI and below PMFSH Past Medical History Medical History Anxiety Herpes Shingles Obesity Surgical History Surgical History History of tubal ligation Family History Family History Father Diabetes mellitus Mother Breast cancer Social History Social History Smoking status: Never smoker Alcohol intake: current Alcohol use details: 3/MONTH Substance use: never Substance use type: does not use Living arrangements: with family Gender identity (if verbalized by the patient): Female Sexual Orientation (if Verbalized by the Patient): Straight or Heterosexual Spiritual care concerns: No Exam 2 Narrative: GENERAL: Well appearing, well-nourished, non-toxic, in no acute distress. HEAD: Normocephalic, atraumatic. NECK: Supple. No adenopathy, no masses. RESPIRATORY: Airway patent, respirations nonlabored. Clear to auscultation bilaterally, no rales, rhonchi, wheezing. CARDIOVASCULAR: Mild tachycardia without murmurs, rubs, or gallops. Peripheral pulses 2+ and equal bilaterally. ABDOMINAL: Soft, nontender, nondistended, no hepatosplenomegaly. Normoactive BS. MUSCULOSKELETAL: Moves all extremities. Strength/ROM intact without gross deformities. SKIN: Warm, dry, normal color. No rashes. NEURO: A&O X3. Speech clear. Cranial nerves II-XII intact. No ataxic movements. PSYCHIATRIC: Appropriate mood and affect. Normal interaction. Course Vital Signs Vital signs: Vital Signs Temperature 36.6 C 09/11/24 17:41 Pulse Rate 98 09/11/24 17:41 Respiratory Rate 16 09/11/24 17:41 Blood Pressure 139/96 H 09/11/24 17:41 Pulse Oximetry 100 09/11/24 17:41 Oxygen Delivery Room Air 09/11/24 17:41 Temperature 36.6 C 09/11/24 17:41 Pulse Rate 96 09/11/24 20:17 Respiratory Rate 15 09/11/24 20:17 Blood Pressure 141/97 H 09/11/24 20:17 Pulse Oximetry 100 09/11/24 20:17 Oxygen Delivery Room Air 09/11/24 20:17 MDM - Chest Pain MDM Narrative Medical decision making narrative: Patient is a 34-year-old female who presents to the ER with right- sided chest pain. She reports she has had chest pain intermittently for over a month but over the last week it has become more frequent. Today patient was having many episodes of chest pain so she decided to come in for evaluation. Patient endorses mild shortness of breath, mild congestion, and lightheadedness. She denies any wheezing, lower extremity edema, or recent fevers. Patient reports she drinks a monster drink every day that she works, but denies frequent alcohol use. She reports she had a history of -induced hypertension and hyperlipidemia. Patient denies any chance of reporting I have had a tubal ligation. Labs Ordered: CBC, CMP, lipase, D-dimer, troponin, INR, PTT, TSH, UA, UDS, COVID/flu/RSV Imaging Ordered: Chest x-ray Medications Ordered: Toradol 60 mg IM, Macrobid PO Results: Pts chest x-ray indicates No acute cardiopulmonary pathology. Diagnosis: Atypical chest pain, urinary tract infection Risks: HEART score: low risk HEART Score for Major Cardiac Events from [email or web address] on 09/11/2024 All calculations should be rechecked by clinician prior to use RESULT SUMMARY: 0 points Low Score (0-3 points) Risk of MACE of 0.9-1.7%. INPUTS: History ?> 0 = Slightly suspicious EKG ?> 0 = Normal Age ?> 0 = <45 Risk factors ?> 0 = No known risk factors Initial troponin ?> 0 = <=Normal limit Patient Education/Shared MDM: Results of lab work and imaging shared with patient. She reports she has not had any episodes of chest pain since she has been in the ER. Patient strongly advised to maintain hydration status upon discharge and follow-up with her PCP as soon as possible for further workup. They will be discharged home with a prescription for Macrobid. Strict return precautions provided. Patient verbalized understanding and is in agreement with plan. Vital signs stable at time of discharge. All questions answered. Differential Diagnosis Differential diagnosis: Likely fracture of rib, atypical chest pain, st elevation myocardial infarction and costochondritis Lab Data Attestation: I reviewed the patient's lab results. 09/11/24 21:37 09/11/24 21:04 Labs: Lab Results 09/11/24 09/11/24 09/11/24 Range/Units 21:04 21:07 21:08 WBC (4.5-10.0) K/mm3 RBC (4.2-5.4) M/mm3 Hgb (12.0-15.0) g/dL Hct (37.0-47.0) % MCV (80-100) fl MCH (26-34) pg MCHC (32-36) g/dl RDW (11.5-14.5) % Plt Count (150-375) k/mm3 MPV (7.4-10.4) fl Immature Gran % (Auto) (0-0.5) % Neut % (Auto) (45.5-73.1) % Lymph % (Auto) (18.3-44.2) % [place] % (Auto) (2.6-8.5) % Eos % (Auto) (0-4.4) % Baso % (Auto) (0.2-1.2) % Lymph # (Auto) (0.9-3.2) K/mm3 [place] # (Auto) (0.1-0.6) K/mm3 Eos # (Auto) (0-0.3) K/mm3 Baso # (Auto) (0.0-0.1) K/mm3 Abs Immat Gran (auto) (0.00-0.031) K/mm3 Absolute Neuts (auto) (1.3-6.7) K/mm3 Absolute Nucleated RBC (0.0-0.012) K/mm3 Nucleated RBC % (0.0-0.2) % PT (11.1-14.7) Seconds INR APTT (22.3-36.8) Seconds D-Dimer (<0.48) ug/mL Sodium 138 (137-145) mmol/L Potassium 4.4 (3.4-5.0) mmol/L Chloride 101 (98-107) mmol/L Carbon Dioxide 23 (22-30) mmol/L Anion Gap 14 H (4-12) mmol/L BUN 9 (7-17) mg/dL Creatinine 0.65 L (0.7-1.0) mg/dL Estim Creat Clear Calc 105 ml/min Estimated GFR > 60 (59 - ) Glucose 90 (65-110) mg/dL Calcium 9.8 (8.4-10.2) mg/dL Total Bilirubin 0.5 (0.2-1.3) mg/dL AST 39 H (14-36) U/L ALT 31 (6-35) U/L Alkaline Phosphatase 141 H (38-126) U/L Troponin I < 0.012 (0.000-0.034) ng/mL Total Protein 9.0 H (6.3-8.2) g/dL Albumin 4.7 (3.5-5.1) g/dL Lipase 112 (23-300) U/L TSH (Reflex) 2.990 (0.465-4.68) uIU/mL Urine Color [place] H (Yellow) Urine Appearance Cloudy H (Clear) Urine pH 7.5 (5.0-9.0) Ur Specific [place] 1.017 (1.001-1.035) Urine Protein Trace (Negative) mg/dL Urine Glucose (UA) Negative (Negative) mg/dL Urine Ketones Negative (Negative) mg/dL Ur Blood (Man) 3+ H (Negative) Urine Nitrate Negative (Negative) Urine Bilirubin Negative (Negative) Urine Urobilinogen 1.0 (<2.0) mg/dL Leukocyte Esterase Rfl 2+ H (Negative) ISAURA/UL Urine RBC >100 H (0-2) /hpf Urine WBC 21-50 H (0-3) /hpf Ur Squamous Epith Cells None seen (Few) /hpf Urine Bacteria None seen /hpf Urine Casts 0-2 Urine Opiates Screen Negative (Negative) Urine Methadone Screen Negative (Negative) Ur Barbiturates Screen Negative (Negative) Ur Phencyclidine Scrn Negative (Negative) Ur Amphetamine Screen Negative (Negative) U Benzodiazepines Scrn Negative (Negative) Urine Cocaine Screen Negative (Negative) U Cannabinoids Screen Negative (Negative) Influenza A (RT-PCR) Negative (Negative) Influenza B (RT-PCR) Negative (Negative) RSV (RT-PCR) Negative (Negative) SARS-CoV-2 RNA (RT-PCR) Negative (Negative) 09/11/24 Range/Units 21:37 WBC 10.1 H (4.5-10.0) K/mm3 RBC 4.85 (4.2-5.4) M/mm3 Hgb 11.3 L (12.0-15.0) g/dL Hct 37.1 (37.0-47.0) % MCV 76.5 L (80-100) fl MCH 23.3 L (26-34) pg MCHC 30.5 L (32-36) g/dl RDW 16.1 H (11.5-14.5) % Plt Count 511 H (150-375) k/mm3 MPV 8.4 (7.4-10.4) fl Immature Gran % (Auto) 0.2 (0-0.5) % Neut % (Auto) 57.5 (45.5-73.1) % Lymph % (Auto) 33.1 (18.3-44.2) % [place] % (Auto) 6.7 (2.6-8.5) % Eos % (Auto) 1.7 (0-4.4) % Baso % (Auto) 0.8 (0.2-1.2) % Lymph # (Auto) 3.34 H (0.9-3.2) K/mm3 [place] # (Auto) 0.7 H (0.1-0.6) K/mm3 Eos # (Auto) 0.2 (0-0.3) K/mm3 Baso # (Auto) 0.1 (0.0-0.1) K/mm3 Abs Immat Gran (auto) 0.02 (0.00-0.031) K/mm3 Absolute Neuts (auto) 5.8 (1.3-6.7) K/mm3 Absolute Nucleated RBC 0.000 (0.0-0.012) K/mm3 Nucleated RBC % 0.0 (0.0-0.2) % PT 13.6 (11.1-14.7) Seconds INR 1.0 APTT 28.2 (22.3-36.8) Seconds D-Dimer 0.40 (<0.48) ug/mL Sodium (137-145) mmol/L Potassium (3.4-5.0) mmol/L Chloride (98-107) mmol/L Carbon Dioxide (22-30) mmol/L Anion Gap (4-12) mmol/L BUN (7-17) mg/dL Creatinine (0.7-1.0) mg/dL Estim Creat Clear Calc ml/min Estimated GFR (59 - ) Glucose (65-110) mg/dL Calcium (8.4-10.2) mg/dL Total Bilirubin (0.2-1.3) mg/dL AST (14-36) U/L ALT (6-35) U/L Alkaline Phosphatase (38-126) U/L Troponin I (0.000-0.034) ng/mL Total Protein (6.3-8.2) g/dL Albumin (3.5-5.1) g/dL Lipase (23-300) U/L TSH (Reflex) (0.465-4.68) uIU/mL Urine Color (Yellow) Urine Appearance (Clear) Urine pH (5.0-9.0) Ur Specific [place] (1.001-1.035) Urine Protein (Negative) mg/dL Urine Glucose (UA) (Negative) mg/dL Urine Ketones (Negative) mg/dL Ur Blood (Man) (Negative) Urine Nitrate (Negative) Urine Bilirubin (Negative) Urine Urobilinogen (<2.0) mg/dL Leukocyte Esterase Rfl (Negative) ISAURA/UL Urine RBC (0-2) /hpf Urine WBC (0-3) /hpf Ur Squamous Epith Cells (Few) /hpf Urine Bacteria /hpf Urine Casts Urine Opiates Screen (Negative) Urine Methadone Screen (Negative) Ur Barbiturates Screen (Negative) Ur Phencyclidine Scrn (Negative) Ur Amphetamine Screen (Negative) U Benzodiazepines Scrn (Negative) Urine Cocaine Screen (Negative) U Cannabinoids Screen (Negative) Influenza A (RT-PCR) (Negative) Influenza B (RT-PCR) (Negative) RSV (RT-PCR) (Negative) SARS-CoV-2 RNA (RT-PCR) (Negative) Imaging Data Attestation: I personally reviewed and interpreted this imaging study as follows: Radiologist's impression: Impressions Chest X-Ray 09/11/24 21:21 IMPRESSION: No acute cardiopulmonary pathology. Discharge Plan Discharge Clinical Impression: Atypical chest pain, Urinary tract infection Patient Disposition: Home Condition: Stable Instructions: Antibiotic Form, Noncardiac Chest Pain (ED) Additional Instructions: Please return to the ER with any worsening symptoms. Follow-up with primary care provider as soon as possible. Take all medications as prescribed. Complete your full dose of antibiotics. You may use Tylenol and or ibuprofen for pain control. Patient Language: Nicaraguan Prescriptions: New nitrofurantoin monohyd/m-cryst [Macrobid] 100 mg capsule 100 mg PO Q12H 5 Days Qty: 10 0RF Rx Instructions: must administer with a meal/food No Action sertraline 50 mg Tablet 50 mg PO DAILY cephalexin 500 mg capsule 500 mg PO Q8H 7 Days Qty: 21 0RF ibuprofen 800 mg tablet 800 mg PO TID PRN (Reason: pain) 7 Days Qty: 21 0RF acetaminophen 500 mg tablet 1,000 mg PO TID PRN (Reason: vivek) 7 Days Qty: 42 0RF methocarbamol 750 mg tablet 1,500 mg PO TID Qty: 35 0RF cyclobenzaprine 10 mg tablet 10 mg PO TID PRN (Reason: muscle spasm) Qty: 30 0RF naproxen 500 mg tablet 500 mg PO BID PRN (Reason: pain) Qty: 20 0RF Follow-up/Referrals: Kirk Hutchins MD [Physician] - (primary care) UNKNOWN,DOCTOR [Primary Care Provider] - Time of Disposition: 23:41
[2024-09-11 21:20] LABS: Bacteria Urine None Seen /hpf; Non Pathogenic Casts 0-2; RBC Urine >100 /hpf (0-2); Squamous Epithelial Cell Urine None Seen /hpf (Few); WBC Urine 21-50 /hpf (0-3)
[2024-09-11 21:21] LABS: Add Urine Microscopic? YES; Appearance Urine Cloudy (Clear); Bilirubin Urine Negative (Negative); Blood Urine 3+ (Negative); Color Urine Orange (Yellow); Glucose Urine UA Negative (Negative); Ketones Urine Negative (Negative); Leukocyte Esterase Ur 2+ LEU/UL (Negative); Nitrate Urine Negative (Negative); Protein Urine Trace mg/dL (Negative); Specific Grav Ur 1.017 (1.001-1.035); pH Urine 7.5 (5.0-9.0)
[2024-09-11 21:22] LABS: Alanine Aminotransferase 31 U/L (6-35); Albumin Level 4.7 g/dL (3.5-5.1); Alkaline Phosphatase 141 U/L (38-126); Anion Gap 14 mmol/L (4-12); Aspartate Amino Transferase 39 U/L (14-36); Bilirubin,Total 0.5 mg/dL (0.2-1.3); Blood Urea Nitrogen 9 mg/dL (7-17); Calcium 9.8 mg/dL (8.4-10.2); Carbon Dioxide 23 mmol/L (22-30); Chloride 101 mmol/L (98-107); Estimated CRCL calculation 105 ml/min; Estimated Glomerular Filt Rate > 60; Glucose 90 mg/dL (65-110); Lipase 112 U/L (23-300); Potassium 4.4 mmol/L (3.4-5.0); Sodium 138 mmol/L (137-145)
[2024-09-11 21:33] LABS: Amphetamine Screen Urine Negative (Negative); Barbiturate Screen Urine Negative (Negative); Benzodiazepines Screen Urine Negative (Negative); Cannabinoid Screen Urine Negative (Negative); Cocaine Screen Urine Negative (Negative); Methadone Screen Urine Negative (Negative); Opiate Screen Urine Negative (Negative); Phencyclidine Screen Urine Negative (Negative)
[2024-09-11 21:40] LABS: Troponin I < 0.012 ng/mL (0.000-0.034)
[2024-09-11 21:44] LABS: Basophils Absolute Auto 0.1 K/mm3 (0.0-0.1); Basophils Percent Auto 0.8 % (0.2-1.2); Eosinophils Absolute Auto 0.2 K/mm3 (0-0.3); Eosinophils Percent Auto 1.7 % (0-4.4); Hematocrit 37.1 % (37.0-47.0); Hemoglobin 11.3 g/dL (12.0-15.0); Immature Granulocyte Absolute 0.02 K/mm3 (0.00-0.031); Immature Granulocyte Percent A 0.2 % (0-0.5); Lymphocytes Absolute Auto 3.34 K/mm3 (0.9-3.2); Lymphocytes Percent Auto 33.1 % (18.3-44.2); Mean Corpuscular HGB Conc 30.5 g/dl (32-36); Mean Corpuscular Hemoglobin 23.3 pg (26-34); Mean Corpuscular Volume 76.5 fl (80-100); Mean Platelet Volume 8.4 fl (7.4-10.4); Monocytes Absolute Auto 0.7 K/mm3 (0.1-0.6); Monocytes Percent Auto 6.7 % (2.6-8.5); Neutrophils Absolute Auto 5.8 K/mm3 (1.3-6.7); Neutrophils Percent Auto 57.5 % (45.5-73.1); Platelet Count Result 511 k/mm3 (150-375); Red Blood Count 4.85 M/mm3 (4.2-5.4); Red Cell Distribution Width 16.1 % (11.5-14.5); White Blood Count 10.1 K/mm3 (4.5-10.0)
[2024-09-11 21:45] LABS: Influenza A QL RT-PCR Negative (Negative); Influenza B QL RT-PCR Negative (Negative); RSV RNA, RT-PCR Negative (Negative); SARS-CoV-2 RNA PCR Negative (Negative)
[2024-09-11 21:56] LABS: Prothrombin Time 13.6 Seconds (11.1-14.7)
[2024-09-11 21:57] LABS: Partial Thromboplastin Time 28.2 Seconds (22.3-36.8)
[2024-09-12 00:10] VITALS: BP 134/89; PULSE 110; RESP 25; O2SAT 97
[2024-09-12] MEDS: NITROFURANTOIN MONOHYD MACROCR 100 MG CAP PO (00:12)
[2024-09-12] MEDS: KETOROLAC (*BKC) 60 MG/2 ML VIAL IM (00:12)
== END 2024-09-12 00:30 | disposition home or self-care (01) ==
PROVIDERS: Emergency Provider Registered Nurse
DX: R07.89 Other chest pain (principal); N39.0 Urinary tract infection, site not specified; E66.9 Obesity, unspecified; Z68.38 Body mass index [BMI] 38.0-38.9, adult; Z11.59 Encounter for screening for other viral diseases
CPT/HCPCS: 36415; 71046; 80053; 80307; 81001; 83690; 84443; 84484; 85025; 85380; 85610; 85730; 87086; 87637; 93005; 96372; 99284; A9270; J1885

== ENCOUNTER 2025-02-14 12:51 | Outpatient (CLI) | payer OTHER, SELFPAY ==
--- OUTSIDE RECORDS SUMMARY | 2025-02-14 14:23 | XMS_ITS | Clinical Summary ---
Author Organization [facility] [employer] Address [address] [place] [address] Care Team Providers Care Field Return Repairer Name Role Phone Unavailable Primary Care Provider Unavailabl e Source Comments [facility] [employer],non-owned Affiliates and Associated Physician Practices is amultiple site organization consisting of ambulatory clinics and hospital sitesin [place], [place], [place] and [place]. This disclosure is being madepursuant to the Care Everywhere program and may not contain all information available regarding this patient. Last updated 18.[employer] Allergies No known active allergies Medications * [...] Valtrex Assessment & Plan (06/14/2020 10:20 AM MONOTYPER): Sabrina reports that she had her 1st [...] 1st Assessment & Plan (06/14/2020 10:21 AM MONOTYPER): Sabrina remains at risk for gestational hypertension. She never started aspirin for preeclampsia risk reduction. Shingles 08/20/2019 Assessment & Plan (06/14/2020 10:19 AM MONOTYPER): Sabrina does not have a current outbreak [...] on file Legal Sex Female 3:22 PM MONOTYPER Gender Identity Not on file Sexual Orientation Not on file Last Filed Vital Signs Vital Sign Reading Time Taken Comments Blood Pressure 125/76 06/14/2020 9:15 AM MONOTYPER Pulse 96 06/14/2020 9:15 AM MONOTYPER Temperature 36.6 C (97.8 F) 06/14/2020 9:15 AM MONOTYPER Respiratory Rate - - Oxygen Saturation - - Inhaled Oxygen Concentration - - Weight 80.3 kg (177 lb) 06/14/2020 9:15 AM MONOTYPER Height 152.4 cm (5') 06/14/2020 9:15 AM MONOTYPER Body Mass Index 34.57 06/14/2020 9:15 AM MONOTYPER Plan of Treatment Health Maintenance Due Date Last Done Comments HIV SCREENING 08/28/2007 HEPATITIS C SCREENING 08/23/2010 DTAP/TDAP/TD VACCINES (1 - Tdap) 08/28/2011 HEPATITIS B VACCINE (1 of 3 - 19+ 3-dose series) 08/28/2011 HPV VACCINE (1 - 3-dose SCDM series) 08/28/2019 DEPRESSION SCREENING 04/21/2024 COVID-19 VACCINE (1 - 2023-2 5 season) 2024 INFLUENZA VACCINE (#1) 2024 ZOSTER VACCINE (1 of 2) 2042 [...]
--- OUTSIDE RECORDS SUMMARY | 2025-02-14 14:23 | XMS_ITS | Clinical Summary ---
Author Organization [facility] Address [address] [place] [address] Care Team Providers Care Dress Operator Name Role Phone Sourav Cary MD Unavailable [phone] No, Physician Primary Care Provider [phone] Allergies No known active allergies Medications acyclovir [...] on file Legal Sex Female 11:08 AM MOBILE HOMES REPAIRER Gender Identity Female 09/22/2019 2:29 PM CDT [...] Comments Blood Pressure 133/98 06/01/2024 11:12 AM MOBILE HOMES REPAIRER Pulse 116 06/01/2024 11:12 AM MOBILE HOMES REPAIRER Temperature 36.7 C (98.1 F) 06/01/2024 11:12 AM MOBILE HOMES REPAIRER Respiratory Rate 18 06/01/2024 11:12 AM MOBILE HOMES REPAIRER Oxygen Saturation 99% 06/01/2024 11:12 AM MOBILE HOMES REPAIRER Inhaled Oxygen Concentration - - Weight 86 kg (189 lb 9.6 oz) 06/01/2024 11:12 AM MOBILE HOMES REPAIRER Height 152.4 cm (5') 05/20/2023 9:07 AM MOBILE HOMES REPAIRER Body Mass Index 37.03 05/20/2023 9:07 AM MOBILE HOMES REPAIRER Plan of Treatment Health Maintenance Due Date Last Done Comments Cervical Cancer Screening 1992 Depression Screening 1992 Hepatitis C Screening 1992 Varicella Vaccines (1 of 2 - 13+ 2-dose series) 2005 Regular Well Visit/Exam 18-64 2010 DTaP/Tdap/Td Vaccine (8 - Td or Tdap) 05/24/2023 05/24/2013, 10/24/2006, 10/01/2002, Additional history exists Covid-19 Vaccine ( season) 2024 03/09/2021, 02/16/2021 Influenza Vaccine (#1) 2024 05/24/2013, 2009 Breast Cancer Screening-Mammogram 06/01/2025 06/01/2024, 06/03/2023, 04/01/2019 Hepatitis B Screening Completed 02/27/1993 , 1992, 1992 HPV Vaccines Completed 07/01/2007, 12/20, 10/24/2006 Pneumococcal vaccine <65 Aged Out No longer eligible based on patient's age to complete this topic Procedures Procedure Name Priority Date/Time Associated Diagnosis Comments SCREENING MAMMOGRAM BILATERAL W MELLO Schedule Routine, Read Routine (OP Routine) 06/01/2024 10:58 AM MOBILE HOMES REPAIRER Breast cancer screening by mammogram from Last 3 Months or Most Recently Relevant to Health Maintenance Results * Screening Mammogram Bilateral W Mello (06/01/2024 10:58 AM MOBILE HOMES REPAIRER) Anatomical Region Laterality Modality Breast Bilateral Mammography 06/01/2024 11:0 8 AM MOBILE HOMES REPAIRER Impressions 06/01/2024 11:08 AM MOBILE HOMES REPAIRER No evidence of malignancy in either breast. FINAL ASSESSMENT: BI-RADS Category 1: Negative. RECOMMENDATION: 1. Annual screening mammography is recommended. 2. Consider breast MRI for supplemental screening given reported strong family history of breast cancer. Electronically signed by: GERDA EMERSON MD Narrative 06/01/2024 11:08 AM MOBILE HOMES REPAIRER EXAMINATION: BILATERAL SCREENING MAMMOGRAM COMPARISON: All prior [...] Insurance [employer] C[employer] Care Teams Dress Operator Relationship Specialty Start Date End Date No, Physician PCP - General 03/04/19 Sourav Cary MD [address] [place] [address] Referring Physician Obstetrics and Gynecology 02/25/19
--- OUTSIDE RECORDS SUMMARY | 2025-02-14 14:23 | XMS_ITS | Clinical Summary ---
Author Organization [facility] Address [address] [facility] [address] [address] Phone Care Team Providers Care E Business Manager Name Role Phone Triny Da Silva MD Primary Care Provider [phone] Allergies Active Allergy Reactions Criticality Noted Date Comments Hydroxyzine Hcl Delirium Medium 10/07/2024 Bad dreams Medications ALPRAZolam (XANAX) 0.5 mg tablet Take 0.5 mg by mouth nightly as needed. Active ARIPiprazole (ABILIFY) 15 mg tablet TAKE 0.5 TABLETS EVERY DAY BY ORAL ROUTE IN THE MORNING FOR 30 DAYS. Active cyclobenzaprin e (FLEXERIL) 5 mg Tablet Take 5 mg by mouth every 8 hours. Active traZODone (DESYREL) 50 mg tablet take 1 tablet by mouth every day at bedtime for 30 days 5 Active FLUoxetine (PROzac) 20 mg capsule 20 mg. 4 Active multivitamin,t d-uqbc-bu-min (THERA-M) 27-0.4 mg TabletIndicati ons:Mild anemia Take 1 Tablet by mouth daily. 5 Active valACYclovir (VALTREX) 500 mg tablet Take 1 Tablet (500 mg) by mouth daily. Per dermatology. Herpes zoster prevention. 5 Active semaglutide, weight loss, (WEGOVY) 0.25 mg/0.5 mL Pen InjectorIndica tions:Obesity (BMI 35.0-39.9 without comorbidity) Inject 0.5 mL (0.25 mg) by subcutaneous injection every 7 days. 6 mL 5 Active ondansetron (ZOFRAN ODT) 4 mg Tablet, Rapid DissolveIndica tions:Obesity (BMI 35.0-39.9 without comorbidity) Take 1 Tablet (4 mg) by mouth every 8 hours as needed for Nausea/Emesis. Dissolve tablet on top of tongue, then swallow with saliva. 10 Tablet 5 Active semaglutide, weight loss, (WEGOVY) 0.25 mg/0.5 mL Pen InjectorIndica tions:Obesity (BMI 35.0-39.9 without comorbidity) Inject 0.5 mL (0.25 mg) by subcutaneous injection every 7 days. 2 mL 1 5 025 Discontin ued(Reord er) Active Problems Problem Noted Date Diagnosed Date History of herpes zoster - recurrent R leg. 09/19 Overview (10/07/2024): stable on preventive valtrex. Mixed hyperlipidemia 10/07/2024 Eczema 10/07/2024 Overview (10/07/2024): Treated her derm. Family history of breast cancer in mother- age 4 0 04/06/2024 Family history of early CAD 04/06/2024 Overview (10/07/2024): Fatal [place], mother, age 59. Heavy alcohol and tobacco user. Obesity (BMI 35.0-39.9 without comorbidity) 02/19 Resolved Problems Problem Noted Date Diagnosed Date Resolved Date Skin lesion of right lower extremity 03/25/2024 10/07/2024 Positive screening for depre ssion on 9-item Patient Health Questionnaire (PHQ-9) 03/25/2024 Candidiasis, intertriginous 02/28/2023 10/07/2024 Overview (10/07/2024): Per derm care. Vs Eczema. Encounters Date Type Department Care Team Description 02/01/2025 2:00 PM CDT Office Visit [facility] [place] at [facility] [employer] [place] [address] [place] [address] Awilda Saeed ANP Obesity (BMI 35.0-39.9 without comorbidity) (Primary Dx); Uterine disorder 01/18/2025 External Device Data STL ABSTRACTION Provider, Abstract 11/30/2024 10:00 AM CDT Office Visit [facility] [place] [facility] [employer] [place] [address] [place] [address] Awilda Saeed ANP Obesity (BMI 35.0-39.9 without comorbidity) (Primary Dx); Family history of early CAD; Mixed hyperlipidemia 11/24/2024 External Device Data STL ABSTRACTION Provider, Abstract 11/23/2024 External Device Data STL ABSTRACTION Provider, Abstract from Last 3 Months Family History Medical History Relation Name Comments No Known Problems Brother 1 No Known Problems Brother 2 No Known Problems Brother 3 High Cholesterol Daughter Diabetes Father Heart Attack Maternal Grandfather No Known Problems Maternal Grandmother Breast Cancer Mother Heart Disease Mother fatal [place] Other Paternal Grandfather heart a nd kidney [...] Sign Reading Time Taken Comments Blood Pressure 124/76 02/01/2025 1:43 PM CDT Pulse 118 02/01/2025 1:43 PM CDT Temperature 37.7 C (99.8 F) 02/01/2025 1:43 PM CDT Respiratory Rate 18 02/01/2025 1:43 PM CDT Oxygen Saturation 99% 02/01/2025 1:43 PM CDT Inhaled Oxygen Concentration - - Weight 84.4 kg (186 lb) 02/01/2025 1:43 PM CDT Height 152.4 cm (5') 02/01/2025 1:43 PM CDT Body Mass Index 36.33 02/01/2025 1:43 PM CDT Plan of Treatment Upcoming Encounters Date Type Department Care Team (Late st Contact Info) Description 05/03/2025 1:00 PM SOW MANAGER Office Visit [facility] [place] [facility] [employer] [place] [address] [place] [address] Awilda Saeed, ANP [address] [address] [facility] [address] [place] [address] Health Maintenance Due Date Last Done Comments HEPATITIS B VACCINES (1 of 3 - 19+ 3-dose series) 12/2011 HPV/Cotest (21-29) 2013 HPV VACCINES (1 - 3-dose SCDM series) 08/28/2019 CERVICAL CANCER SCREENING 2022 HPV/Cotest (30-65) 2022 PAP SMEAR 2022 INFLUENZA VACCINE (#1) 2024 DTAP/TDAP/TD VACCINES (2 - Td or Tdap) 10/03/2030 Insurance [employer]LE[employer] OPEN ACCESS Care Teams E Business Manager Relationship Specialty Start Date End Date Triny Da Silva MD [address] [place] [id number] PCP - General Internal Medicine 03/25/24
== END 2025-02-14 12:52 | disposition home or self-care (01) ==
LOC: ANHSURGERY 12:55
PROVIDERS: PCP Nurse Practitioner Adult Health; Visit Provider Obstetrics & Gynecology
DX: R10.20 Pelvic and perineal pain unspecified side (principal)
CPT/HCPCS: 36415; 86850; 86900; 86901

== ENCOUNTER 2025-02-18 00:52 | Day surgery (SDC) | payer OTHER, SELFPAY ==
[2025-02-11 14:19] VITALS: BMI 36.8
--- NOTE | 2025-02-11 14:20 | PC.NURSE ---
[facility] has started construction of its new state of the art ER which will open Spring 2026. With this, we anticipate parking may be a challenge for some our surgical patients and families. Parking spaces are limited but are available for all Surgical, obstetrics, and ER patients sharing this lot. If you arrive and find you are having a hard time finding a parking space, please note that we understand the challenges, please drive around the hospital and park near Hospital Entrance 1. When you enter this entrance, you can ask a volunteer to direct or take you back to the surgical waiting area to check in. We appreciate everyone?s understanding of these expected challenges while we build for your future. Report to the Outpatient Waiting Room, entrance under the green pavilion located off [address], at time _0715_ on date _[id number]_. Planned Procedure Time: _0915_.? Time changes happen often and if your time is changed the preop area will call you the afternoon before. - You and your visitor will be asked to self-screen and do not enter if you have any COVID symptoms. Please call surgeon if you need to reschedule. - A mask is optional within the hospital at this time. Patients may have clear liquids (water, carbonated beverages, clear teas, apple juice) until 3 hours prior to surgery with a maximum of 20 ounces. - No food from midnight until time of surgery and no smoking, or chewing tobacco (or any form of nicotine). No chewing gum, candy or mints. Take only the following medications with a SIP of water on the morning of surgery: __Fluoxetine and Aripiprazole DO NOT STOP ANY OF YOUR OTHER PRESCRIPTION MEDICATIONS PRIOR TO SURGERY EXCEPT THE FOLLOWING Hold all vitamins and supplements for 3 days per anesthesiologist. Medications to discontinue per physician Patient stopped Wegovy with last dose 01-23-2025 Date to take last dose____ Please no make-up, nail french, hairspray, perfume, deodorant, or body powder the day of surgery.? No jewelry (including any body piercings) or valuables the day of surgery, leave them at home.? Please take a shower or bath the night before, or the morning of, surgery with an antibacterial soap.? Wear comfortable, loose fitting clothing.? - Jewelry must be removed prior to entering the operating room.? Rings and piercings that are not removed may be cut off. - The hospital will not accept responsibility for valuables.? - Please leave all valuables, including medications, at home the day of surgery. If you are going home after surgery, a licensed intermodal truck driver must drive you home.? - NO public transportation without another adult if you receive anesthesia. - We recommend that an adult stay with you for 24 hours following discharge. - We also recommend that you do not drive, make important decision, drink alcoholic beverages, or take any drugs that were not prescribed by your health care provider for at least 24 hours after your discharge time. Follow any additional instructions given to you from your surgeon. Telephone instructions given to __Sabrina__and asked if any additional questions and then verbalized understanding. Patient advised to call surgeon office or pre surgery nurse liaison [phone] if any additional questions.
--- NOTE | 2025-02-16 07:18 | PM.IMHP ---
H&P: HPI History of Present Illness Date/Time: 02/16/25 07:18 Chief Complaint: Pelvic pain and right ovarian cyst dyspareunia Narrative: Since 34-year-old female admitted for laparoscopy and right cystectomy secondary to pain ovarian cyst. There was a question of an umbilical hernia she was evaluated this. Negative we will visualized at from the inside upon admission risks and benefits of the procedure reviewed in full. She received the ACOG handout entitled laparoscopy. She had all questions answered and asked to proceed Review of Systems Review of Systems: All systems reviewed & are unremarkable except as noted in HPI and below PMFSH Past Medical History Medical History Anxiety Herpes Shingles Obesity Surgical History Surgical History History of tubal ligation Family History Family History Father Diabetes mellitus Mother Breast cancer Social History Social History Smoking status: Never smoker Alcohol intake: current Alcohol use details: 3/MONTH Substance use: never Substance use type: does not use Living arrangements: with family Gender identity (if verbalized by the patient): Female Sexual Orientation (if Verbalized by the Patient): Straight or Heterosexual Spiritual care concerns: No Meds Home Medications and Allergies Home Medications ?Medication ?Instructions ?Recorded ?Confirmed ?Type aripiprazole 15 mg tablet 15 mg PO DAILY 02/11/25 02/11/25 History fluoxetine 20 mg capsule 20 mg PO DAILY 02/11/25 02/11/25 History semaglutide (weight loss) 0.25 0.25 mg subcut WEEKLY 02/11/25 02/11/25 History mg/0.5 mL subcutaneous pen injector (Wegovy) trazodone 50 mg tablet 50 mg PO HS 02/11/25 02/11/25 History valacyclovir 500 mg tablet 500 mg PO DAILY 02/11/25 02/11/25 History Allergies Allergy/AdvReac Type Severity Reaction Status Date / Time No Known Allergies Allergy Verified 02/11/25 14:10 Exam Const: General: cooperative, healthy appearing and comfortable Nutritional Appearance: overweight Orientation/consciousness: oriented to person, oriented to place and oriented to time HENMT: Head: normal to inspection Resp: Effort & Inspection: normal respiratory effort Cardio: Rate: regular rate Rhythm: regular rhythm Heart sounds: S1 normal heart sound present and S2 normal heart sound present GI: Inspection: normal to inspection and scar (Keloid is seen below the umbilicus) : External Female Exam: normal external appearance Speculum Exam - Vagina: normal appearance of the vagina Speculum Exam - Cervix: normal appearance of the cervix Bimanual exam- vagina & uterus: Uterine tenderness Bimanual Exam- Adnexa, other: tender on the right Assessment and Plan Assessment and plan (1) Pelvic pain: Code(s): R10.20 - Pelvic and perineal pain unspecified side Status: Acute (2) Right ovarian cyst: Code(s): N83.201 - Unspecified ovarian cyst, right side Status: Acute Plan Proceed with laparoscopy right ovarian cystectomy
[2025-02-18] VITALS (8 sets, daily range): BP systolic 112–141; BP diastolic 78–94; PULSE 84–110; RESP 13–18; TEMP 36.2–37.2; O2SAT 95–100; BMI 36.3
--- OUTSIDE RECORDS SUMMARY | 2025-02-18 00:56 | XMS_ITS | Clinical Summary ---
Author Organization [facility] Address [address] [place] [address] Care Team Providers Care Inseam Trimming Machine Operator Name Role Phone Unavailable Primary Care Provider Unavailabl e Source Comments [facility],non-owned Affiliates and Associated Physician Practices is amultiple site organization consisting of ambulatory clinics and hospital sitesin [place], [place], [place] and [place]. This disclosure is being madepursuant to the Care Everywhere program and may not contain all information available regarding this patient. Last updated 18.[facility] Allergies No known active allergies Medications * [...] Valtrex Assessment & Plan (06/14/2020 10:20 AM PSYCHIATRIC NURSING ASSISTANT): Sabrina reports that she had her 1st [...] 1st Assessment & Plan (06/14/2020 10:21 AM PSYCHIATRIC NURSING ASSISTANT): Sabrina remains at risk for gestational hypertension. She never started aspirin for preeclampsia risk reduction. Shingles 08/20/2019 Assessment & Plan (06/14/2020 10:19 AM PSYCHIATRIC NURSING ASSISTANT): Sabrina does not have a current outbreak [...] on file Legal Sex Female 3:22 PM PSYCHIATRIC NURSING ASSISTANT Gender Identity Not on file Sexual Orientation Not on file Last Filed Vital Signs Vital Sign Reading Time Taken Comments Blood Pressure 125/76 06/14/2020 9:15 AM PSYCHIATRIC NURSING ASSISTANT Pulse 96 06/14/2020 9:15 AM PSYCHIATRIC NURSING ASSISTANT Temperature 36.6 C (97.8 F) 06/14/2020 9:15 AM PSYCHIATRIC NURSING ASSISTANT Respiratory Rate - - Oxygen Saturation - - Inhaled Oxygen Concentration - - Weight 80.3 kg (177 lb) 06/14/2020 9:15 AM PSYCHIATRIC NURSING ASSISTANT Height 152.4 cm (5') 06/14/2020 9:15 AM PSYCHIATRIC NURSING ASSISTANT Body Mass Index 34.57 06/14/2020 9:15 AM PSYCHIATRIC NURSING ASSISTANT Plan of Treatment Health Maintenance Due Date [...]
--- OUTSIDE RECORDS SUMMARY | 2025-02-18 00:56 | XMS_ITS | Clinical Summary ---
Author Organization [facility] Address [address] [facility] [address] [address] Phone Care Team Providers Care Lpn Home Health Name Role Phone Triny Da Silva MD Primary Care Provider [phone] Allergies Active Allergy Reactions Criticality Noted Date [...] mg capsule 20 mg. 4 Active multivitamin,t h-zlwd-wz-min (THERA-M) 27-0.4 mg TabletIndicati ons:Mild anemia Take [...] of early CAD 04/06/2024 Overview (10/07/2024): Fatal [place], mother, age 59. Heavy alcohol and tobacco [...] Description 02/01/2025 2:00 PM CDT Office Visit [facility] at [facility] [employer] [place] [address] [place] [address] Awilda Saeed ANP Obesity (BMI 35.0-39.9 without comorbidity) (Primary Dx); Uterine disorder 01/18/2025 External Device Data STL ABSTRACTION Provider, Abstract 11/30/2024 10:00 AM CDT Office Visit [facility] at [facility] [employer] [place] [address] [place] [address] Awilda Saeed ANP Obesity (BMI 35.0-39.9 without [...] Breast Cancer Mother Heart Disease Mother fatal [place] Other Paternal Grandfather heart a nd kidney [...] st Contact Info) Description 05/03/2025 1:00 PM DATA ENTRY ANALYST Office Visit [facility] at [facility] [employer] [place] [address] [place] [address] Awilda [place], ANP [address] [address] [facility] [address] [place] [address] Health Maintenance Due Date Last Done Comments HEPATITIS B VACCINES (1 of 3 - 19+ 3-dose series) 12/2011 HPV/Cotest (21-29) 2013 HPV VACCINES (1 - 3-dose SCDM series) 08/28/2019 CERVICAL CANCER SCREENING 2022 HPV/Cotest (30-65) 2022 PAP SMEAR 2022 INFLUENZA VACCINE (#1) 2024 DTAP/TDAP/TD VACCINES (2 - Td or Tdap) 10/03/2030 Insurance [employer] OPEN ACCESS Care Teams Lpn Home Health Relationship Specialty Start Date End Date Triny Da Silva MD [address] [place] [phone] PCP - General Internal Medicine 03/25/24
--- OUTSIDE RECORDS SUMMARY | 2025-02-18 00:57 | XMS_ITS | Data Portability ---
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 Plan of Treatment Reminders Order Date Submit Date Provider Last Modified By Organization Details Last Modified Time Details Appointments None recorded. Lab None recorded. Referral None recorded. Procedures None recorded. Surgeries None recorded. Imaging None recorded. Medication Orders Xanax 0.5 mg tablet 2024 025 [facility]/Pharmacy #[id number], [address], [place], [address], 5 16:38:58 sertraline 100 mg tablet [address]/Pharmacy #[id number], [address] [place], [address], 5 16:13:10 Xanax 0.5 mg tablet 2022 023 [facility]/Pharmacy #[id number], [address], [place], [address], 3 12:59:13 sertraline 50 mg tablet [address]/Pharmacy #[id number], [address], [place], [address], 5 16:13:23 Xanax 0.5 mg tablet 2022 023 [email or web address] [facility]/Pharmacy #[id number], [address], [place], [address], 22:09:00 Patient TargetsNo targets recorded. Patient InstructionsNo instructions recorded. Reason for Referral None Reported. Results Created Date Observation Date Name Description Value Unit Range Abnormal Flag Note LastModifiedBy Organization Detail LastModifiedTime 08/31/19 21 08/30/2020 CBC w/ auto diff WBC 9.3 10'3/ uL 3.6-10 .2 Not Available [facility] (Lab) [address], [place], [address], 08/31/2020 03:40:28 08/31/19 21 08/30/2020 CBC w/ auto diff RBC 4.70 10'6/ uL (based on docume nted legal sex) 4.10-5 .30 Not Available [facility] (Lab) [address], [place], [address], 08/31/2020 03:40:28 08/31/19 21 08/30/2020 CBC w/ auto diff HGB 11.1 g/dL (based on docume nted legal sex) 11.9-1 5.8 low Not Available [facility] (Lab) [address] [place], [address], 08/31/2020 03:40:28 08/31/19 21 08/30/2020 CBC w/ auto diff HCT 37.7 % (based on docume nted legal sex) 37.4-4 8.3 Not Available [facility] (Lab) [address] [place], [address], 08/31/2020 03:40:28 08/31/19 21 08/30/2020 CBC w/ auto diff MCV 80.0 fL 82.0-9 9.0 low Not Available [facility] (Lab) [address] [place], [address], 08/31/2020 03:40:28 08/31/19 21 08/30/2020 CBC w/ auto diff MCH 24.0 pg 27.0-3 3.0 low Not Available [facility] (Lab) [address], [place], [address], 08/31/2020 03:40:28 08/31/19 21 08/30/2020 CBC w/ auto diff MCHC 29.0 g/dL 32.0-3 6.0 low Not Available [facility] (Lab) [address], [place], [address], 08/31/2020 03:40:28 08/31/19 21 08/30/2020 CBC w/ auto diff RDW 16.0 % 11.0-1 5.0 high Not Available [facility] (Lab) [address], [place], [address], 08/31/2020 03:40:28 08/31/19 21 08/30/2020 CBC w/ auto diff plt 541 10'3/ uL 150-45 0 high Not Available [facility] (Lab) [address] [place], [address], 08/31/2020 03:40:28 08/31/19 21 08/30/2020 CBC w/ auto diff MPV 9.7 fL Not Available [facility] (Lab) [address] [place], [address], 08/31/2020 03:40:28 08/31/19 21 08/30/2020 CBC w/ auto diff NRBC's 0.00 % 0 Not Available [facility] (Lab) [address] [place], [address], 08/31/2020 03:40:28 08/31/19 21 08/30/2020 CBC w/ auto diff absolute NRBCs 0.0 10'3/ uL 0 Not Available [facility] (Lab) [address] [place], [address], 08/31/2020 03:40:28 08/31/19 21 08/30/2020 CBC w/ auto diff neutrophils 64.0 % 37.0-7 2.0 Not Available [facility] (Lab) [address] [facility], [place], [address], 08/31/2020 03:40:28 08/31/19 21 08/30/2020 CBC w/ auto diff lymphocytes 25.0 % 16.0-4 8.0 Not Available [facility] (Lab) [address] [place], [address], 08/31/2020 03:40:28 08/31/19 21 08/30/2020 CBC w/ auto diff monocytes 8.0 % 4.0-14 .0 Not Available [facility] (Lab) [address] [place], [address], 08/31/2020 03:40:28 08/31/19 21 08/30/2020 CBC w/ auto diff eosinophils 2.0 % 0.0-9. 0 Not Available [facility] (Lab) [address] [place], [address], 08/31/2020 03:40:28 08/31/19 21 08/30/2020 CBC w/ auto diff basophils 1.0 % 0.0-2. 0 Not Available [facility] (Lab) [address] [place], [address], 08/31/2020 03:40:28 08/31/19 21 08/30/2020 CBC w/ auto diff immature granulocytes 0.0 % no define d refere nce range Not Available [facility] (Lab) [address] [place], [address], 08/31/2020 03:40:28 08/31/19 21 08/30/2020 CBC w/ auto diff absolute neutrophils 6.0 10'3/ uL 1.1-6. 0 Not Available [facility] (Lab) [address] [facility], [place], [address], 08/31/2020 03:40:28 08/31/19 21 08/30/2020 CBC w/ auto diff absolute lymphocytes 2.3 10'3/ uL 0.7-3. 4 Not Available [facility] (Lab) [address] [place], [address], 08/31/2020 03:40:28 08/31/19 21 08/30/2020 CBC w/ auto diff absolute monocytes 0.8 10'3/ uL 0.3-1. 0 Not Available [facility] (Lab) [address] [facility], [place], [address], 08/31/2020 03:40:28 08/31/19 21 08/30/2020 CBC w/ auto diff absolute eosinophils 0.2 10'3/ uL 0.0-0. 6 Not Available [facility] (Lab) [address] [facility], [place], [address], 08/31/2020 03:40:28 08/31/19 21 08/30/2020 CBC w/ auto diff absolute basophils 0.1 10'3/ uL 0.0-0. 1 Not Available [facility] (Lab) [address] [place], [address], 08/31/2020 03:40:28 08/31/19 21 08/30/2020 CBC w/ [...] resul ts are expec brianna. Not Available [facility] (Lab) [address] [place], [address], 08/31/2020 03:40:28 08/31/19 21 08/30/2020 uric acid, serum or plasm a uric acid 4.4 mg/dL (based on docume nted legal sex) 2.4-5. 7 Not Available [facility] (Lab) [address] [place], [address], 08/31/2020 03:40:29 08/31/19 21 08/30/2020 CMP, serum or plasm a sodium 137 mmol/ L 136-14 5 Not Available [facility] (Lab) [address] [facility], [place], [address], 08/31/2020 03:40:30 08/31/19 21 08/30/2020 CMP, serum or plasm a potassium 4.2 mmol/ L 3.5-5. 3 Not Available [facility] (Lab) [address] [place], [address], 08/31/2020 03:40:30 08/31/19 21 08/30/2020 CMP, serum or plasm a chloride 97 mmol/ L 98-107 low Not Available [facility] (Lab) [address] [place], [address], 08/31/2020 03:40:30 08/31/19 21 08/30/2020 CMP, serum or plasm a carbon dioxide 24 mmol/ L 23-31 Not Available [facility] (Lab) [address] [place], [address], 08/31/2020 03:40:30 08/31/19 21 08/30/2020 CMP, serum or plasm a anion gap 16 mmol/ L 8-16 Not Available [facility] (Lab) [address] [place], [address], 08/31/2020 03:40:30 08/31/19 21 08/30/2020 CMP, serum or plasm a blood urea nitrogen 11 mg/dL (based on legal sex) 6-20 Not Available [facility] (Lab) [address] [place], [address], 08/31/2020 03:40:30 08/31/19 21 08/30/2020 CMP, serum or plasm a creatinine 0.60 mg/dL (based on legal sex) .5-1.2 Not Available [facility] (Lab) [address] [place], [address], 08/31/2020 03:40:30 08/31/19 21 08/30/2020 CMP, serum or plasm a GFR () 144 mL/mi n/1.7 3_m2 60-300 Not Available [facility] (Lab) [address] [place], [address], 08/31/2020 03:40:30 08/31/19 21 08/30/2020 CMP, serum or plasm a GFR (others) 119 mL/mi n/1.7 3_m2 60-300 Not Available [facility] (Lab) [address] [place], [address], 08/31/2020 03:40:30 08/31/19 21 08/30/2020 CMP, serum or plasm a calcium 9.9 mg/dL 8.4-10 .5 Not Available [facility] (Lab) [address] [place], [address], 08/31/2020 03:40:30 08/31/19 21 08/30/2020 CMP, serum or plasm a glucose 60 mg/dL 70-99 low Not Available [facility] (Lab) [address] [place], [address], 08/31/2020 03:40:30 08/31/19 21 08/30/2020 CMP, serum or plasm a protein, total 7.4 g/dL 6.0-8. 3 Not Available [facility] (Lab) [address] [place], [address], 08/31/2020 03:40:30 08/31/19 21 08/30/2020 CMP, serum or plasm a albumin 4.7 g/dL 3.5-5. 0 Not Available [facility] (Lab) [address] [place], [address], 08/31/2020 03:40:30 08/31/1908/30/2020 CMP, serum or plasm a ALT 80 units /L 9-43 high Not Available [facility] (Lab) [address] [place], [address], 08/31/2020 03:40:30 08/31/19 21 08/30/2020 CMP, serum or plasm a alkaline phosphatase 155 units /L 35-129 high Not Available [facility] (Lab) [address] [place], [address], 08/31/2020 03:40:30 08/31/1908/30/2020 CMP, serum or plasm a AST 60 units /L (based on docume nted legal sex) 11-32 high Not Available [facility] (Lab) [address] [place], [address], 08/31/2020 03:40:30 08/31/1908/30/2020 CMP, serum or plasm a bilirubin, total 0.2 mg/dL 0.0-1. 0 Not Available [facility] (Lab) [address] [place], [address], 08/31/2020 03:40:30 Result Notes None recorded. Problems Name Problem SNOMED Code Status Onset Date Resolution Date Notes Provider Name and Address Organization Details Recorded Time Spasm of back muscles 652269218 Completed flexeril Shakila Ralph ehl null, [facility] 14:24:52 Fatigue 90165620 Completed Shakilanina Ralph ehl null, [facility] 14:24:52 Past pregnanc y history of gestatio nal hyperten ten 041104116 Completed asa Shakilanina Ralph ehl null, [facility] 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 treated and + HSV 2- tx Valtrex per SB and aware prophylac tic Valtrex to follow initial tx. hSakila kaufman [facility], [facility] 1 14:24:52 Herpes simplex 36208899 Completed 2 IgG+ - Valtrex btwn 34-36wks Shakila Ralph [facility], [facility] 1 14:24:52 Ultrason ography Completed 201205/11/2020 screening for malformat ion using ultrasoni cs;Record ed Elsewhere : No Locati on: [facility] So urce: EHR Chron ic: N Practic e ID: [id number] Bill able Time: 02:00:00 PM Becky Gray [facility] 1 14:59:43 Antenata l screenin g Completed 201205/11/2020 screening for malformat ion using ultrasoni cs;Record ed Elsewhere : No Locati on: [facility] So urce: EHR Chron ic: N Practic e ID: 0001 Bill able Time: 02:00:00 PM Becky Gray [facility] 1 14:59:03 Congenit al malforma tion [id number] Completed 201205/11/2020 screening for malformat ion using ultrasoni cs;Record ed Elsewhere : No Locati on: [facility] So urce: EHR Chron ic: N Practic e ID: 0001 Bill able Time: 02:00:00 PM Becky Gray [facility] 1 14:59:12 Abdomina l pain [id number] Completed 201205/11/2020 Abdominal Pain;Dre rded Elsewhere : No Locati on: [facility] So urce: EHR Chron ic: N Practic e ID: 0001 Bill able Time: 10:30:00 AM Becky le, [facility] 14:58:57 Primigra yamila [id number] Completed 201205/11/2020 Supervisi on of normal first ;Recorded Elsewhere : No Locati on: [facility] So urce: EHR Chron ic: N Practic e ID: 0001 Bill able Time: 10:30:00 AM Becky le [facility] 14:59:30 Transien t hyperten ten of pregnanc y - not delivere d [id number] Completed 201305/11/2020 Antepartu m transient hypertens ion;Recor ded Elsewhere : No Locati on: [facility] So urce: EHR Chron ic: N Practic e ID: 0001 Bill able Time: 11:30:00 AM Becky le, [facility] 14:59:41 Delivery normal [id number] Completed 201305/11/2020 Normal delivery; Practice ID: [id number] Becky le, [facility] 14:59:17 Single live from singleto n pregnanc y [id number] Completed 201305/11/2020 Mother with single liveborn; Practice ID: 0001 Becky le, [facility] 14:59:35 Transien t hyperten ten of pregnanc y - delivere d with postnata l complica tion [id number] Completed 201305/11/2020 Postpartu m transient hypertens ion;Recor ded Elsewhere : No Locati on: [facility] So urce: EHR Chron ic: N Practic e ID: 0001 Bill able Time: 02:45:00 PM Becky le [facility] 14:59:39 Constipa tion 94663813 Completed 201305/11/2020 Constipat ion, unspecifi ed;Record ed Elsewhere : No Locati on: [facility] So urce: EHR Chron ic: N Practic e ID: 0001 Bill able Time: 02:45:00 PM Becky le, [facility] 14:59:15 Postpart um care Completed 201305/11/2020 Post Followup; Recorded Elsewhere : No Locati on: [facility] So urce: EHR Chron ic: N Practic e ID: 0001 Bill able Time: 02:15:00 PM Becky Gray [facility], [facility] 14:59:26 Overweig ht [id number] Completed 201305/11/2020 Overweigh t;Recorde d Elsewhere : No Locati on: [facility] So urce: EHR Chron ic: N Practic e ID: 0001 Bill able Time: 01:30:00 PM Becky Gray [facility], [facility] 14:59:24 Adult health examinat ion Completed 201305/11/2020 ROUTINE MEDICAL EXAM;Dre rded Elsewhere : No Locati on: [facility] So urce: EHR Chron ic: N Practic e ID: 0001 Bill able Time: 01:30:00 PM Becky Gray [facility] 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 14:59:36 Obesity [id number] Completed 201305/11/2020 Obesity;R ecorded Elsewhere : No Locati on: [facility] So urce: EHR Chron ic: N Practic e ID: 0001 Bill able Time: 01:00:00 PM Becky le [facility] 14:59:23 Screenin g for malignan t neoplasm of cervix Completed 201305/11/2020 Screening for malignant neoplasms of the cervix;Re corded Elsewhere : No Locati on: [facility] So urce: EHR Chron ic: N Practic e ID: 0001 Bill able Time: 01:00:00 PM Becky Gray [facility], [facility] 14:59:32 Pregnanc y test negative [id number] Completed 201405/11/2020 examinati on or test, negative result;Re corded Elsewhere : No Locati on: [facility] So urce: EHR Chron ic: N Practic e ID: 0001 Bill able Time: 01:15:00 PM Becky Gray [facility], [facility] 14:59:28 Amenorrh ea [id number] Completed 201405/11/2020 Absence of menstruat ion;Recor ded Elsewhere : No Locati on: [facility] So urce: EHR Chron ic: N Practic e ID: 0001 Bill able Time: 01:15:00 PM Becky Gray [facility] 14:59:01 Neoplast ic disease Completed 201805/11/2020 Neoplasm of soft tissue;Re corded Elsewhere : No Locati on: [facility] So urce: EHR Chron ic: N Practic e ID: 0001 Bill able Time: 01:00:00 PM Becky Gray [facility], [facility] 14:59:21 Clinical finding Completed 201805/11/2020 Disorder of pigmentat ion, unspecifi ed;Record ed Elsewhere : No Locati on: [facility] So urce: EHR Chron ic: N Practic e ID: 0001 Bill able Time: 01:00:00 PM Becky Gray [facility] 14:59:08 Benign neoplasm of skin of trunk 76551081 Completed 201805/11/2020 Other benign neoplasm of skin of trunk;Pra ctice ID: 0001 Becky Gray [facility] 14:59:05 Disorder of breast 33192231 Completed 201805/11/2020 Disorder of breast, unspecifi ed;Record ed Elsewhere : No Locati on: [facility] So urce: EHR Chron ic: N Practic e ID: 0001 Bill able Time: 09:30:00 AM Becky Gray [facility] 14:59:19 Clinical finding Completed 201805/11/2020 Other specified disorders of breast;Pr actice ID: 0001 Becky Gray [facility] 14:59:06 Pregnanc y [id number] Completed 201908/03/2020 Shakila kaufman [facility] 14:24:57 Postpart [facility] [id number] Active 2020 Daisyvaishali Puentes [facility] 13:03:53 Problem Notes None recorded. Procedures Surgical History Date Name Laterality Status Provider Name and Address Organization Details Recorded Time 1 TUBAL LIGATION (SURG) completed Aranza Balderrama [facility] 09/25/2020 10:21:59 0 Date of Last Mammogram completed Moon Junior [facility] 06/26/2020 11:50:02 4 Date of Last Pap Smear completed Heena Mejia [facility] 12/31/2019 15:51:33 Imaging Results None recorded. Procedure Notes None recorded. Medical Equipment None Reported. Allergies No known drug allergies Medications Name Sig Start Date Stop Date Status Note LastModified by Organization Details LastModified Time cyclobenz aprine 10 mg tablet TAKE 1 TABLET BY MOUTH THREE TIMES A DAY NEEDED FOR MUSCLE SPASMS active Not Available Not Available No t Available Xanax 0.5 mg tablet Take 1 tablet 3 times a day by oral route. 2024 active Not Available Not Available Not Avai lable trazodone 50 mg tablet TAKE 1 TABLET BY MOUTH EVERY DAY AT BEDTIME active Not Available Not Available No t Available cetirizin e 10 mg tablet TAKE 1 TABLET BY MOUTH EVERY DAY 11/01 completed Not Available Not Available Not Available ibuprofen 800 mg tablet TAKE 1 TABLET BY MOUTH THREE TIMES A DAY NEEDED FOR PAIN FOR 7 DAYS 11/01 completed Not Available Not Available Not Available valacyclo vir 1 gram tablet TAKE 1 TABLET BY MOUTH THREE TIMES DAILY 11/01 completed Not Available Not Available Not Available Loestrin Fe 05/10 (28-Day) 1 mg-20 mcg (21)/75 mg (7) tablet take 1 tablet by oral route every day 07/15 completed Prescrib ed [facility] e: No Locat ion: [facility] odify By: [email or web address] Encount er DateTime : 03/31/20 09:34:32 AM Not Available Not Available Not Available hydrocodo ne 5 mg-acetam inophen 325 mg tablet TAKE 1 OR 2 TABLETS BY MOUTH EVERY 4 HOURS NEEDED FOR PAIN 05/30 completed Not Available Not Available Not Available prednison e 20 mg tablet TAKE 2 TABLETS BY MOUTH EVERY DAY FOR 5 DAYS 11/01 completed Not Available Not Available Not Available sertralin e 100 mg tablet TAKE 1 TABLET BY MOUTH EVERY DAY 11/01 completed Not Available Not Available Not Available penicilli n V potassium 500 mg tablet [...] Not Available Not Available No t Available tramadol 50 mg tablet TAKE 1/2 TABLET BY MOUTH EVERY 8 HOURS NEEDED 11/01 completed Not Available Not Available Not Available acetamino phen 500 mg tablet TAKE 2 TABLETS BY MOUTH 3 TIMES A DAY NEEDED FOR PAIN X7 DAYS 11/01 completed Not Available Not Available Not Available acyclovir 800 mg tablet TAKE 1 TABLET (800 MG) BY MOUTH 5 TIMES DAILY FOR 10 DAYS. 11/01 completed Not Available Not Available Not Available amoxicill in 875 mg tablet TAKE 1 TABLET EVERY 12 HOURS DAILY 10/29 completed Not Available Not Available Not Available methocarb maryam 750 mg tablet TAKE 2 TABLETS (1500 MG) BY MOUTH THREE TIMES A DAY 11/01 completed Not Available Not Available Not Available cephalexi n 500 mg capsule TAKE 1 CAPSULE BY MOUTH 2 TIMES DAILY UNTIL GONE 05/15 completed Not Available Not Available Not Available clotrimaz ole-betam ethasone 1 %-0.05 % topical cream APPLY 1 APPLICAT ION ONTO THE RASH AREA(S) ON THE SKIN TWICE DAILY X14 DAYS 11/01 completed Not Available Not Available Not Available Tylenol 325 mg tablet take 1 tablet by oral route every 4 hours as needed 01/04 completed Prescrib ed Elsewher e: Yes Loca tion: Sathish perez [facility] odify By: jill conrad DateTime : 07/06/19 14 03:30:00 PM Not Available Not Available Not Available hydroxyzi ne HCl 25 mg tablet TAKE 3 TABLETS BY MOUTH EVERY DAY AT BEDTIME FOR SLEEP/ DREAMS FOR 30 DAYS 11/01 completed Not Available Not Available Not Available Vitamin D2 1,250 mcg (50,000 unit) capsule take 1 capsule (48890SE ITS) by oral route every week 07/05 completed Prescrib ed Elsewher e: No Locat ion: [facility] odify By: jill conrad DateTime : 04/15/20 13 09:38:27 AM Not Available Not Available Not Available fluoxetin e 20 mg capsule TAKE 1 CAPSULE EVERY DAY BY ORAL ROUTE IN THE MORNING FOR 30 DAYS, FOR DEPRESSI ON/ANXIE TY. active Not Available Not Available No t Available clotrimaz ole 1 % topical cream APPLY TO AFFECTED AND SURROUND ING AREAS 2 TIMES DAILY FOR 14 DAYS active Not Available Not Available No t Available sertralin e 50 mg tablet TAKE 1 TABLET BY MOUTH EVERY DAY 11/01 completed Not Available Not Available Not Available dicyclomi ne 10 mg capsule TAKE 1 CAPSULE BY MOUTH FOUR TIMES A DAY 05/30 completed Not Available Not Available Not Available naproxen 500 mg tablet TAKE 1 TABLET BY MOUTH TWICE A DAY NEEDED FOR PAIN 11/01 completed Not Available Not Available Not Available amoxicill in 875 mg-potass ium clavulana te 125 mg tablet TAKE 1 TABLET BY MOUTH TWICE A DAY 05/30 completed Not Available Not Available Not Available Colace 50 mg capsule take 1 capsule by oral route every day at bedtime as needed 01/04 completed Prescrib jozef Lozano e: Yes Loca tion: [facility] odify By: jill conrad DateTime : 07/06/19 03:30:00 PM Not Available Not Available Not Available aripipraz ole 15 mg tablet TAKE 0.5 MG EVERY DAY BY ORAL ROUTE IN THE MORNING FOR 30 DAYS. active Not Available Not Available No t Available cyclobenz aprine 5 mg tablet TAKE 1 TABLET BY MOUTH EVERY 8 HOURS 11/01 completed Not Available Not Available Not Available aripipraz ole 5 mg tablet TAKE 1 TABLET BY MOUTH EVERY DAY IN THE MORNING 11/01 completed Not Available Not Available Not Available nitrofura ntoin monohydra te/macroc rystals 100 mg capsule TAKE 1 CAPSULE (100 MG) BY MOUTH EVERY 12 HOURS FOR 5 DAYS WITH A MEAL/RC D 10/29 completed Not Available Not Available Not Available Boostrix Tdap 2.5 Lf unit-8 mcg-5 Lf/0.5 mL intramusc ular syringe 05/29 completed Not Available Not Available Not Available chlorhexi dine gluconate 0.12 % mouthwash PLEASE SEE ATTACHED FOR DETAILED DIRECTIO NS 11/01 completed Not Available Not Available Not Available [...] Prescrib ed Elsewher e: No Locat ion: [facility] odify By: ada conrad DateTime : 01/05/20 14 01:00:00 PM Not Available Not Available Not Available Triveen-D uo DHA 29 mg-1 mg-400 mg oral pack take 2 by Oral route every day for 30 days 01/07 completed Prescrib ed Elsewher e: No Locat ion: [facility] odify By: ada conrad DateTime : 12/10/19 13 10:45:00 AM Not Available Not Available Not Available lidocaine 5 % topical ointment 01/03 completed Not Available Not Available Not Available Vitals Date Recorded Body height Body mass index (BMI) Body weight Systolic And Diastolic Provider Name and Address Organization Details Last Updated DateTime 05/30/2022 152.4 cm 35.9 kg/m2 07469 g 150/87 mm[Hg] [facility] 05/30/2022 12:04:31 Date Recorded Body height Body mass index (BMI) Body weight Systolic And Diastolic Provider Name and Address Organization Details Last Updated DateTime 06/27/2022 152.4 cm 35.9 kg/m2 51633 g 146/88 mm[Hg] [facility] 06/27/2022 10:34:34 Date Recorded Body height Body mass index (BMI) Body weight Systolic And Diastolic Systolic And Diastolic Systolic And Diastolic Provider Name and Address Organization Details Last Updated DateTime 152.4 cm 32.8 kg/m2 61173.5 2 g 144/104 mm[Hg] 146/100 mm[Hg] 140/100 mm[Hg] [facility] 16:35:58 Date Recorded Body height Body mass index (BMI) Body weight Systolic And Diastolic Provider Name and Address Organization Details Last Updated DateTime 11/01/2024 152.4 cm 37.7 kg/m2 22939.33 g 129/82 mm[Hg] Esther Chaidez [facility] 11/01/2024 16:09:18 Date Recorded Body height Body mass index (BMI) Body weight Systolic And Diastolic Provider Name and Address Organization Details Last Updated DateTime 12/02/2022 152.4 cm 36.5 kg/m2 15240.77 g 142/86 mm[Hg] Moon Junior [facility] 12/02/2022 12:36:33 Social History Question Answer Notes LastModified by Organizat ion Details LastModified Time Tobacco Smoking Status Never Smoker Moon Junior [facility] 06/26/2020 11:50:07 Do You Have An [...] Or The Highest Degree You Have Received? [id number] Information not available 06/26/2020 How Many Days Of Moderate To Strenuous Exercise, Like A Brisk Walk, Did You Do In The Last 7 Days? 5 Alot Of Walking At Work Information not available 06/26/2020 Are There Any Guns Present In Your Home? No Information not available 06/26/2020 What Was The Date Of Your Most Recent Tobacco Screening? 08/22/2020 [email or web address] Information not available 08/22/2020 Do You Use Protection During Sex? No Information not available 06/26/2020 Do You Use Your Seat Belt Or Car Seat Routinely? Yes Information not available 06/26/2020 Do You Have Smoke And Carbon Monoxide Detectors In Your Home? Yes Information not available 06/26/2020 How Much Tobacco Do You Smoke? No [email or web address] Information not available 03/20/2020 Do You Use [...] not available 06/26/2020 Are you able to walk independently without assistance or assistive devices? YESWOREST Information not available 06/26/2020 What is your occupation? [employer] Information not available 06/26/2020 What is your exercise level? Occasional Information not available 01/04/2020 Mental Status Question Answer Note LastModified by Organization D etails LastModified Time Do you feel stressed (tense, restless, nervous, or anxious, or unable to sleep at night)? [id number] Information not available 06/26/2020 Family History Relationship [...] ) N Other N Drug/Latex Allergies/Reactions N Blood Transfusion N Breast Cancer N Dermatologic Disorders N Lung Disease N Defects or Inherited Disease N Breast Problem N Gestational Diabetes N Hematologic disorders N Anesthesia Complications N History of STI Y Deep Vein Thrombosis N Polycystic ovary syndrome N Anxiety Disorder N Autoimmune disease N Arthritis N Polyps N Infertility N Acid Reflux (GERD) N History of abnormal pap N Cancer N Varicosities N Stroke N Neurologic/Epilepsy N Endometriosis N High Cholesterol [...] Statement/Question Response Date of Last Mammogram 03/29/2020 Flow Moderate Date of LMP 10/19/2024 On BCP's at Conception? N N Was last menstrual period normal Y STIs/STDs Yes HPV Vaccine N Duration of Flow (days) 5 Current Control Method Tubal Ligat ion Age at First Child 22 Frequency of Cycle (Q days) 30 Sexually Active? Y Menses Monthly Y Age of first menstrual cycle 14 Date of Last Pap Smear 01/04/2014 Sexual Problems? N Desired Control Method LMP Approximate N Obstetrics History GPAL:G 3 P 2 0 1 2 Type Value Full Term 2 Spontaneous 1 Living 2 Total 3 Past Encounters Encounter ID Performer Location Encounter Start Date Encounter Closed Date Diagnosis/Indication Diagnosis SNOMED-CT Code Diagnosis ICD10 Code Diagnosis IMO Codes Diagnosis Note Sourav Cary MD [facility] [address],[place] [address] 01/04/2020 16:07:26 01/05/2020 11:36:57 [id number] [address],[place] [address] 01/04/2020 16:08:07 01/05/2020 14:57:04 test positive 016611068 Z32.01 Risk factors addressed: Tobacco Cessation, Safe [...] annual well woman examinatio n and address [facility] . [id number] Sourav Cary MD [facility] [address],[place] [address] 01/24/2020 15:51:08 01/24/2020 16:48:20 screening 804538422 Z36.82 Z36.0 Z36.89 [id number] Sourav Cary MD [facility] [address],[place] [address] 01/24/2020 15:51:54 01/24/2020 17:15:25 Spasm of back muscles 186602738 M62.830 Routine an tenatal care 949721955 Z34.81 [id number] Sourav Cary MD [facility] [address],[place] [address] 02/21/2020 09:20:55 02/22/2020 08:31:37 [id number] Daisy Puentes CNM [facility] [address],[place] [address] 02/21/2020 09:21:42 02/21/2020 10:29:46 Routine care 432259196 Z34.92 [id number] Sourav Cary MD [facility] [address],[place] [address] 03/20/2020 14:05:51 03/20/2020 17:44:30 screening for malformation 018079467 Z36.3 [id number] [facility] [address],[place] [address] 03/20/2020 14:07:19 03/20/2020 17:43:44 Routine care 222787706 Z34.92 [id number] [facility] [address],[place] [address] 04/17/2020 10:44:24 04/17/2020 11:55:55 Routine care 478057563 Z34.92 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 58082725 Z31.430 [id number] Sourav Cary MD [facility] [address],[place] [address] 04/17/2020 10:44:59 04/17/2020 11:41:53 condition affecting obstetrical care of mother 034024644 O35.8XX0 Z3A.23 [id number] Ramya Bates MD [facility] [address],[place] [address] 05/15/2020 10:11:27 05/15/2020 10:47:36 Routine care 491007257 Z34.82 [id number] Sourav Cary MD [facility] [address],[place] [address] 05/23/2020 14:40:37 05/24/2020 11:04:42 Herpes simplex 35444481 B00.9 [id number] [facility] [address],[place] [address] 05/29/2020 11:42:24 05/30/2020 10:21:28 Routine care 716701184 Z34.92 Additional precaution demond measures were taken to minimize potential exposure to the Covid-19 virus during this patient s visit, including available hand tortilla maker upon arrive, temperatur e check and being asked a series of screening questions. All staff wore face coverings during this encounter, as well as provided additional cleaning and sanitizing of all surfaces, including countertop s, pens, chairs, door handles, light switches, etc, prior to and following the patient s visit. [id number] [facility] [address],[place] [address] 06/12/2020 11:37:41 06/12/2020 12:38:12 Routine care 059507889 Z34.92 Additional precaution demond measures were taken to minimize potential exposure to the Covid-19 virus during this patient s visit, including available hand tortilla maker upon arrive, temperatur e check and being asked a series of screening questions. All staff wore face coverings during this encounter, as well as provided additional cleaning and sanitizing of all surfaces, including countertop s, pens, chairs, door handles, light switches, etc, prior to and following the patient s visit. [id number] Sourav Cary MD [facility] [address],[place] [address] 06/26/2020 11:40:52 06/26/2020 12:06:29 Urinary tract infectious disease 58499058 N39.0 Herpes simplex 45985722 B00.9 [id number] Sourav Cary MD [facility] [address],[place] [address] 07/10/2020 10:00:26 07/10/2020 10:56:43 Routine care 953964349 Z34.81 [id number] Sourav Cary MD [facility] [address],[place] [address] 07/17/2020 09:32:19 07/17/2020 10:39:59 Routine care 215307260 Z34.81 [id number] Sourav Cary MD [facility] [address],[place] [address] 07/24/2020 10:13:56 07/24/2020 10:46:42 Routine care 286892025 Z34.81 [id number] Daisy Puentes [facility] [address],[place] [address] 08/03/2020 14:11:48 08/03/2020 14:52:48 -induced hypertension 5429626352 9100 O13.9 BP still high but not in treatable range. No symptoms. Pt feeling great. PIH precaution s given. Return in 1 week for bp check or sooner if any problems/c oncerns. [id number] [facility] [address],[place] [address] 08/09/2020 11:09:30 08/09/2020 11:57:23 -induced hypertension 8290185250 9100 O13.9 BP improving. PIH precaution s given. Return in 1 week for bp check or sooner if any problems/c oncerns. [id number] Daisy Puentes [facility] [address],[place] [address] 08/14/2020 09:27:12 08/14/2020 10:04:20 -induced hypertension 2034376653 9100 O13.9 BP stable. PIH precaution s given. Return in 1 week for bp check or sooner if any problems/c oncerns. We have discussed some lobsterman plans if bp does not normalize. At this point no medication . [id number] Kari Jefferson [facility] [address],[place] [address] 08/22/2020 11:54:03 08/22/2020 14:30:45 care 388981903 Z39.2 - induced hypertension 03299338 O13.9 [id number] Daisy Puentes [facility] [address],[place] [address] 08/30/2020 12:50:37 08/30/2020 13:19:26 state 19085602 Z39.2 Continue to watch for signs/symp toms [...] of today's plan if desired -induced hypertension 1439900175 9100 O13.9 - induced hypertension 22196528 O13.9 BP improved. Denies h/a, v/d, or e/p. [id number] Sourav Cary MD [facility] [address],[place] [address] 09/14/2020 14:52:53 09/14/2020 16:07:43 Contraception care management 738774844 Z30.9 this patient is a 30-year-ol d female with unwanted fertility who presents for preoperati ve care. We have agreed to perform laparoscop ic bilateral tubal ligation. She understand s the risks, benefits, and alternativ es. She has completed the informed consent process and ready to proceed. [id number] Sourav Cary MD [facility] [address],[place] [address] 09/25/2020 09:30:07 09/25/2020 09:32:48 [id number] Sourav Cary MD [facility] [address],[place] [address] 09/29/2020 15:57:44 09/29/2020 16:48:56 Mixed anxiety and depressive disorder 938361375 F41.8 This patient is a 30-year-ol d [...] 2 months for follow-up on depression . [id number] Sourav Cary MD [facility] [address],[place] [address] 05/30/2022 11:35:31 05/30/2022 12:41:41 Mixed anxiety and depressive disorder 656620270 F41.8 this patient is a 31-year-ol d [...] of work for 3 weeks as well. [id number] Sourav Cary MD [facility] [address],[place] [address] 06/27/2022 10:12:06 06/27/2022 11:13:13 Mixed anxiety and depressive disorder 843215298 F41.8 this patient is a 31-year-ol d female who presents for follow-up on depression anxiety. She was treated with sertraline Xanax. She has much better EPDF score today. We discussed side effects. Side effects very tolerable for her. She would like to continue on current medication s. We agreed to follow-up in 3 months [id number] Sourav Cary MD [facility] [address],[place] [address] 12/02/2022 12:23:58 12/02/2022 14:45:46 Mixed anxiety and depressive disorder 477690177 F41.8 32-year-ol d female presents for follow-up [...] ce. More than 50% was counseling . [id number] Sourav Cary MD [facility] [address] [address] 11/01/2024 15:54:22 11/01/2024 17:07:05 Mixed anxiety and depressive disorder 255078672 F41.8 this patient is a 34-year-ol d female with anxiety and depression . She is being treated for depression . She also require some acute intermitte nt treatment. It is rare but occasional ly she requires Xanax. She has taken 22 Xanax tablets in the last 2 years. SSRIs for the treatment of her depression . She is doing this with her psychiatri stValeria Keen, and alternatigumaro es with the patient. I gave her instructio ns and precaution s. We also talked about sexual dysfunctio n as it relates to SSRIs. I gave her some suggestion s to discuss with her psychiatri st. I spent over 20 minutes on her care in total. Health Concerns Section Related Observation LastModified by Organization Detai ls LastModified Time None Recorded Concern Status LastModified by Organization Details LastModified Time None Recorded Advance Directives Directive N: Payers Insurance Date Sequence Insurance Name Policy Number Policy Ca Covered Member ID Ca Member ID Guarantor Name 08/29/2023 PAYMENT PLAN Sabrina Fahad 05/29/2022 1 [facility] [id number] Felix Choi [id number] Sabrina Moore 05/30/2022 1 [facility] - [employer]IGNA Sabrina Choi [id number] Sabrina Vásquez 12/20/2022 PAYMENT PLAN Sabrina Vásquez 11/01/2024 1 [facility] - [employer] - [employer] [id number] Sabrina Bowden [id number] Sabrina Vásquez 05/30/2022 PAYMENT PLAN Sabrina Vásquez 05/30/2022 2 [employer] (PPO) Sabrina Choi [id number] Sabrina Vásquez 05/30/2022 2 [facility] - [employer]NAG[employer] - CIGNA Sabrina Choi [id number] Sabrina Vásquze 05/30/2022 2 [facility] - CIGNA (PPO) Sabrina Choi [id number] Sabrina Vásquez 05/30/2022 2 [employer] (PPO) Sabrina Choi [id number] Sabrina Vásquez Notes Date Note Type Note Provider Name [...] depression. Sourav Cary MD [address], [place], [address], , [facility] 09/29/2020 16:32:47 05/30/2022 text/html this patient is a 31-year-old female with severe anxiety depression. She of very close friend. It was a traumatic catheterization. Was a painful from cancer. Patient was with her at some very difficult times. She has had some episodes of anxiety in the past. She was treated with sertraline and responded well. We spent over 20 minutes [id number]. More than 50% was counseling. We agreed to treat with sertraline and some p.r.n. Xanax. She will follow-up in 3 weeks. She is going to be out of work for 3 weeks as well. Sourav Cary MD [address], [place], [address], , [facility] 05/30/2022 12:35:37 06/27/2022 text/html this patient is a 31-year-old female who presents for follow-up on depression anxiety. She was treated with sertraline Xanax. She has much better EPDF score today. We discussed side effects. Side effects very tolerable for her. She would like to continue on current medications. We agreed to follow-up in 3 months Sourav Cary MD [address], [place], [address], , [facility] 06/27/2022 11:09:50 12/02/2022 text/html 32-year-old female presents for follow-up on anxiety depression. She [...] psychiatry consultation. We spent over 20 minutes [id number]. More than 50% was counseling. Sourav Cary MD [address], [place], [address], , [facility] 12/02/2022 14:40:36 11/01/2024 text/html this patient is a 34-year-old female with anxiety and depression. She is being treated for depression. She also require some acute intermittent treatment. It is rare but occasionally she requires Xanax. She has taken 22 Xanax tablets in the last 2 years. SSRIs for the treatment of her depression. She is doing this with her psychiatrist. Benefits, and alternatives with the patient. I gave her instructions and precautions. We also talked about sexual dysfunction as it relates to SSRIs. I gave her some suggestions to discuss with her psychiatrist. I spent over 20 minutes on her care in total. Sourav Cary MD [address], [place], [address], , [facility] 11/01/2024 16:55:15 OBGyn Episode Ob Episode Information Episode Created Date Number of Fetuses Patient Bloodtype Patient rh Status Prepregnancy Weight lbs Domestic Partner Domestic Partner Phone Father Name [employer] Status 12/31/19 20 1 CLOSED Fetus Data [...] Domestic Partner Domestic Partner Phone Father Name Supervisor [employer] Status 01/24/20 20 1 CLOSED Fetus Data [...] Domestic Partner Domestic Partner Phone Father Name Supervisor [employer] Status 01/24/20 20 1 O Positive 153 CLOSED Fetus Data First Name Last Name Admitted to NICU Weight (g) Sex Living Outcome Pediatric Complications Fetus ID Race Codes Race Delivery Type 2919.99 85 M true Full Term 5059 Vaginal Delivery Problems Problem Notes EIFLV noted Problem Name Start Date End Date Resolution Snomed Code Not e Spasm of back muscles MEDICATION flexeril Fatigue 68140480 Past history of gestational hypertension MEDICATION 877831355 asa Herpes simplex 33787492 2 IgG + - Valtrex btwn 34-36wks Lesion of vulva 157471189 pain ful cluster of vulvar lesions consistent [...] Gestation 0 [email or web address] 01/24/2020 08/09/19 21 0 Pre- Flowsheet Flowsheet Date 01/04/2020 Corcoran Score Blood [...] Weight in lbs Pre/Post Dialysis Refused Weight 159.741324443535 BP Diastolic BP Location Tested BP Systolic [...] Weight in lbs Pre/Post Dialysis Refused Weight 160.075952026085 BP Diastolic BP Location Tested BP Systolic [...] Weight in lbs Pre/Post Dialysis Refused Weight 164.37537060351 BP Diastolic BP Location Tested BP Systolic [...] Weight in lbs Pre/Post Dialysis Refused Weight 170.163898470880 BP Diastolic BP Location Tested BP Systolic [...] Weight in lbs Pre/Post Dialysis Refused Weight 175.710697744492 BP Diastolic BP Location Tested BP Systolic [...] Weight in lbs Pre/Post Dialysis Refused Weight 175.133839540820 BP Diastolic BP Location Tested BP Systolic [...] Weight in lbs Pre/Post Dialysis Refused Weight 174.07269785844 BP Diastolic BP Location Tested BP Systolic BP Type 74 115 Fetus Heart Rate Present A 156 Fetus Movement A Yes Comments Doing well. TDAP done. Decli melanie flu shot. Vulvar lesions improved. Still has some discomfort on right side of vulva and her right leg (history of shingles on that side) dx August of last year. Will schedule with [facility]. Flowsheet Date 06/12/2020 Corcoran Score Blood Edema Fundus Height Fundus Units Glucose Ketones Leukocytes Nitrite Labor Signs Protein Cervic Dilation Cervic Effacement Cervic Station none 32 neg Type Weight in lbs Pre/Post Dialysis Refused Weight 176.689893752395 BP Diastolic BP Location Tested BP Systolic BP Type 81 118 Fetus Heart Rate Present A 141 Fetus Movement A Yes Comments Had u/s with mfm today and w ill meet with mfm on Friday. Shingles resolved. Flowsheet Date 06/26/2020 Corcoran Score Blood Edema Fundus Height Fundus Units Glucose Ketones Leukocytes Nitrite Labor Signs Protein Cervic Dilation Cervic Effacement Cervic Station 33 Type Weight in lbs Pre/Post Dialysis Refused Weight 181.878957884074 BP Diastolic BP Location Tested BP Systolic [...] Weight in lbs Pre/Post Dialysis Refused Weight 187.360951694099 BP Diastolic BP Location Tested BP Systolic [...] Weight in lbs Pre/Post Dialysis Refused Weight 189.527164475391 BP Diastolic BP Location Tested BP Systolic [...] Weight in lbs Pre/Post Dialysis Refused Weight 190.408864741192 BP Diastolic BP Location Tested BP Systolic [...] Weight in lbs Pre/Post Dialysis Refused Weight 172.145139523403 BP Diastolic BP Location Tested BP Systolic [...] Estim ated Date of Delivery false Thalassemia (Marshallese, Moldovan, Mediterranean, Or Background): MCV < 80 false Neural Tube Defect (Meningomyelocele, Spina Bifi da, Or Anencephaly) false Congenital Heart Defect false Down Syndrome false Cristian-Sachs (eg, Rastafari, Cajun, Occitan-[place]) f alse Patrick Disease false Sickle Cell [...]
--- OUTSIDE RECORDS SUMMARY | 2025-02-18 00:57 | XMS_ITS | Clinical Summary ---
Author Organization [facility] Address [address] [place] [address] Care Team Providers Care Construction Contractor Name Role Phone Sourav Cary MD Unavailable No, Physician Primary Care Provider [phone] Allergies No known active allergies Medications acyclovir [...] on file Legal Sex Female 11:08 AM WIRE MILL OPERATOR Gender Identity Female 09/22/2019 2:29 PM CDT [...] Comments Blood Pressure 133/98 06/01/2024 11:12 AM WIRE MILL OPERATOR Pulse 116 06/01/2024 11:12 AM WIRE MILL OPERATOR Temperature 36.7 C (98.1 F) 06/01/2024 11:12 AM WIRE MILL OPERATOR Respiratory Rate 18 06/01/2024 11:12 AM WIRE MILL OPERATOR Oxygen Saturation 99% 06/01/2024 11:12 AM WIRE MILL OPERATOR Inhaled Oxygen Concentration - - Weight 86 kg (189 lb 9.6 oz) 06/01/2024 11:12 AM WIRE MILL OPERATOR Height 152.4 cm (5') 05/20/2023 9:07 AM WIRE MILL OPERATOR Body Mass Index 37.03 05/20/2023 9:07 AM WIRE MILL OPERATOR Plan of Treatment Health Maintenance Due Date [...] Read Routine (OP Routine) 06/01/2024 10:58 AM WIRE MILL OPERATOR Breast cancer screening by mammogram from Last 3 Months or Most Recently Relevant to Health Maintenance Results * Screening Mammogram Bilateral W Mello (06/01/2024 10:58 AM WIRE MILL OPERATOR) Anatomical Region Laterality Modality Breast Bilateral Mammography 06/01/2024 11:0 8 AM WIRE MILL OPERATOR Impressions 06/01/2024 11:08 AM WIRE MILL OPERATOR No evidence of malignancy in either breast. FINAL ASSESSMENT: BI-RADS Category 1: Negative. RECOMMENDATION: 1. Annual screening mammography is recommended. 2. Consider breast MRI for supplemental screening given reported strong family history of breast cancer. Electronically signed by: GERDA EMERSON MD Narrative 06/01/2024 11:08 AM WIRE MILL OPERATOR EXAMINATION: BILATERAL SCREENING MAMMOGRAM COMPARISON: All prior [...] Insurance CIGNA ALLEGIANCE CIGNA ALLEGIANCE Care Teams Construction Contractor Relationship Specialty Start Date End Date No, Physician PCP - General 03/04/19 Sourav Cary MD [address] [place] [address] Referring Physician Obstetrics and Gynecology 02/25/19
--- NOTE | 2025-02-18 06:29 | WPDHPUPDATE1 ---
History and Physical Update Update Date/Time: 02/18/25 06:29 History and Physical has been reviewed, including an updated exam of the patient. There are NO changes in the patient's condition. Risks, benefits, and alternatives have been discussed and questions answered. Patient agrees to proceed with procedure.
[2025-02-18] MEDS: LACTATED RINGERS 1,000 ML 30 ML IV CONT (07:35)
[2025-02-18] MEDS: KETOROLAC 15 MG/ML VIAL (*BKC) IV PUSH (07:42)
[2025-02-18] MEDS: ACETAMINOPHEN 500 MG TABLET 1000 MG PO (07:42)
--- NOTE | 2025-02-18 09:03 | P.PNAN_ITS ---
Anes - Eval Pre Procedure Procedure: Operation Date: 02/18/25 09:15 Proposed Procedures p Diagnostic Laparoscopy, Possible Right Ovarian Cystectomy - Abdirizak Valenzuela MD Date/Time: 02/18/25 09:03 Pre Op Diagnosis: pelvic pain, dyspareunia. rt ovar cyst Patient Data Age: 34 Gender: F Height: 1.52 m Weight: 84.5 kg Allergies Allergy/AdvReac Type Severity Reaction Status Date / Time No Known Allergies Allergy Verified 02/18/25 07:46 Home Medications ?Medication ?Instructions ?Recorded ?Confirmed ?Type aripiprazole 15 mg tablet 15 mg PO DAILY 02/11/2501/21 History fluoxetine 20 mg capsule 20 mg PO DAILY 02/11/2501/21 History semaglutide (weight loss) 0.25 0.25 mg subcut WEEKLY 1 02/11/25 History mg/0.5 mL subcutaneous pen injector (Wegovy) trazodone 50 mg tablet 50 mg PO HS 02/11/25 5 History valacyclovir 500 mg tablet 500 mg PO DAILY 02/11/25 History hydrocodone 5 mg-acetaminophen 325 1 tablet PO Q4H PRN pain #20 tabs 02/18/25 Rx mg tablet Patient hx anesthesia problems: none Family hx anesthesia problems: none Results Review: All pre-operative results and documents have been reviewed as part of the pre- operative evaluation. [facility] Past Medical History Medical History Anxiety Herpes Shingles Obesity Surgical History Surgical History History of tubal ligation Family History Family History Father Diabetes mellitus Mother Breast cancer Social History Social History Smoking status: Never smoker Alcohol intake: current Alcohol use details: 3/MONTH Substance use: never Substance use type: does not use Living arrangements: with family Gender identity (if verbalized by the patient): Female Sexual Orientation (if Verbalized by the Patient): Straight or Heterosexual Spiritual care concerns: No Exam Day of Procedure 02/18/25 09:03
--- NOTE | 2025-02-18 09:04 | WPDANESEPPF ---
Anes - Initial Pre Proc Eval Procedure: Operation Date: 02/18/25 09:15 Proposed Procedures p Diagnostic Laparoscopy, Possible Right Ovarian Cystectomy - Abdirizak Valenzuela MD Date/Time: 02/18/25 09:04 Surgeon: Abdirizak Valenzuela MD Pre Op Diagnosis: pelvic pain, dyspareunia. rt ovar cyst Patient Data Age: 34 Gender: F Height: 1.52 m Weight: 84.5 kg Allergies Allergy/AdvReac Type Severity Reaction Status Date / Time No Known Allergies Allergy Verified 02/18/25 07:46 Home Medications ?Medication ?Instructions ?Recorded ?Confirmed ?Type aripiprazole 15 mg tablet 15 mg PO DAILY 02/11/25 02/18/25 History fluoxetine 20 mg capsule 20 mg PO DAILY 02/11/25 02/18/25 History semaglutide (weight loss) 0.25 0.25 mg subcut WEEKLY 02/11/25 02/11/25 History mg/0.5 mL subcutaneous pen injector (Wegovy) trazodone 50 mg tablet 50 mg PO HS 02/11/25 02/18/25 History valacyclovir 500 mg tablet 500 mg PO DAILY 02/11/25 02/11/25 History hydrocodone 5 mg-acetaminophen 325 1 tablet PO Q4H PRN pain #20 tabs 02/18/25 Rx mg tablet Patient hx anesthesia problems: none Family hx anesthesia problems: none Results Review: All pre-operative results and documents have been reviewed as part of the pre-operative evaluation. [facility] Past Medical History Medical History Anxiety Herpes Shingles Obesity Surgical History Surgical History History of tubal ligation Family History Family History Father Diabetes mellitus Mother Breast cancer Social History Social History Smoking status: Never smoker Alcohol intake: current Alcohol use details: 3/MONTH Substance use: never Substance use type: does not use Living arrangements: with family Gender identity (if verbalized by the patient): Female Sexual Orientation (if Verbalized by the Patient): Straight or Heterosexual Spiritual care concerns: No Anes - Eval Final PreProcedure Day of Procedure 02/18/25 09:04 Patient weight: obese Heart: regular rate and rhythm Lungs: clear to auscultation Airway: Mallampati scale class II Neurological: alert and oriented Last oral intake: >/= 8 hours ASA classification: II Emergent: no Anesthetic plan: proceed Anesthesia type and monitoring: general ETT and standard monitoring Results Review: All pre-operative results and documents have been reviewed as part of the pre-operative evaluation. Informed Consent: The patient's anesthetic plan and its attendant risks and benefits were discussed with the patient/family/POA. Questions were solicited and answers provided to the satisfaction of the patient/family/POA.
--- NOTE | 2025-02-18 09:45 | W.PM.PROC2 ---
Procedure Note - Detailed Date of Procedure 02/18/25 Pre-op Diagnosis pelvic pain, dyspareunia. rt ovar cyst Post-op Diagnosis Other (Pelvic pain/dyspareunia/bilateral ovarian cyst/endometriosis/pelvic adhesions) Procedure Performed Laparoscopy with destruction of bilateral ovarian cyst. Destruction of endometriosis. Destruction of pelvic adhesions Surgeon Abdirizak Valenzuela MD Anesthesia General Indications This is a 34-year-old female with pelvic pain and a right ovarian cyst Findings Bilateral ovarian cyst with irregularly shaped ovaries bilaterally. Endometriosis on the right ovary. Pelvic adhesions on the left normal-appearing gallbladder and liver edge Description of Procedure The patient was prepped and draped in the normal sterile fashion placed in the dorsal lithotomy position. Under excellent general trach anesthesia weighted speculum placed in posterior fornix vagina. Anterior lip of the cervix grasped with single-tooth tenaculum. Zhou's cannula inserted the cervix and attached to the single-tooth to be used later for uterine manipulation. After emptying the bladder of clear urine the weighted speculum was removed the gloves were changed. A supraumbilical incision made the Veress needle passed in the abdomen. Abdomen filled with CO2 gas [id number]. The 5mm trocar advanced under direct visualization assuring no injury. Patient placed in Trendelenburg and a suprapubic incision made. The 5mm trocar advanced under direct visualization assuring no injury the above findings were seen. The area of endometriosis was point cauterized at 35 w per 2nd on the right ovary. The multiple ovarian cysts bilaterally were opened in linear fashion and drained of fluid. Adhesions on the left were sharply dissected and brought away from the ovarian complex irrigation undertaken until clear. The liver and gallbladder appeared within normal limits. The remainder the procedure was unremarkable. The lower site removed. The gas removed from abdomen. The upper site removed the incisions closed with 4-0 Monocryl and glue. Patient was awakened went recovery in satisfactory condition. All sponge, needle, instrument counts were correct. There were no immediate complications Estimated Blood Loss 5 Drains No Packing No Pathology None sent Complications No immediate complications Condition Stable Disposition PACU
[2025-02-18 10:00] LABS: BEDSIDEPREGUCG Negative (Negative)
[2025-02-18] MEDS: fentaNYL CITRATE INJ (*CRX) 100 MCG/2 ML VIAL 25 MCG IV PUSH (10:22)
[2025-02-18] MEDS: oxyCODONE HCL (*CRX) 5 MG TAB IR PO (11:28)
== END 2025-02-18 12:10 | disposition home or self-care (01) ==
PROVIDERS: PCP Nurse Practitioner Adult Health; Visit Provider Obstetrics & Gynecology
PROC: (CPT 49320; principal; 2025-02-18 09:15)
DX: N80.101 Endometriosis of right ovary, unspecified depth (principal); N83.202 Unspecified ovarian cyst, left side; N83.201 Unspecified ovarian cyst, right side; N73.6 Female pelvic peritoneal adhesions (postinfective); R10.20 Pelvic and perineal pain unspecified side; N94.10 Unspecified dyspareunia; E66.9 Obesity, unspecified; Z68.36 Body mass index [BMI] 36.0-36.9, adult
CPT/HCPCS: 58662; A9270; J1100; J1885; J2250; J2270; J2405; J2704; J3010; J7030; J7120